=== PATIENT | male | born 1930 | race Caucasian/White ===

== ENCOUNTER 2017-05-24 14:15 | Inpatient (IN) | payer OTHER, MEDICARE ==
[2017-05-24] MEDS ORDERED: IPRATROPIUM-ALBUTEROL 3 ML NEB INHALATION STA (14:20)
[2017-05-24] MEDS ORDERED: methylPREDNISolone SOD SUCCI 125 MG/2 ML VIAL IV STA (14:20)
--- NOTE | 2017-05-24 14:23 | ED ---
General Adult HPI - General Stated complaint: SOB Time Seen by Provider: 05/24/17 14:20 Source: patient, EMS, RN notes reviewed - History of Present Illness Initial comments: 87-year-old male history of COPD presents with worsening dyspnea. Patient was seen at urgent care, noted to be bradycardic and sent in for evaluation. Patient has known history of COPD, not on home oxygen. He reports several days of worsening dyspnea. He does report mild cough. Denies any chest pain. Denies URI symptoms. Denies fever or chills. Patient has had no abdominal pain nausea or vomiting. - Related Data Home Medications Medication Instructions Recorded Confirmed Aspirin [Adult Low Dose Aspirin EC] 81 mg PO HS 05/24/17 05/24/17 Atenolol [Tenormin] 25 mg PO HS 05/24/17 05/24/17 Cholecalciferol (Vitamin D3) 2,000 unit PO HS 05/24/17 05/24/17 [Vitamin D3] Fenofibrate Nanocrystallized 72.5 mg PO HS 05/24/17 05/24/17 [Tricor] Fluticasone/Salmeterol [Advair 1 inhalation PO DAILY 05/24/17 05/24/17 250-50 Diskus] Lisinopril [Zestril] 2.5 mg PO HS 05/24/17 05/24/17 Pravastatin Sodium [Pravachol] 80 mg PO HS 05/24/17 05/24/17 Allergies Allergy/AdvReac Type Severity Reaction Status Date / Time atorvastatin [From Lipitor] AdvReac Unknown Verified 05/24/17 16:10 simvastatin [From Zocor] AdvReac Unknown Verified 05/24/17 16:10 Review of Systems ROS Statement: Those systems with pertinent positive or pertinent negative responses have been documented in the HPI. ROS Other: All systems not noted in ROS Statement are negative. General Exam General appearance: alert, in no apparent distress Head exam: Present: atraumatic, normocephalic Eye exam: Present: normal appearance, PERRL Neck exam: Present: normal inspection. Absent: tenderness, meningismus Respiratory exam: Present: wheezes, decreased breath sounds, prolonged expiratory Cardiovascular Exam: Present: normal rhythm, bradycardia GI/Abdominal exam: Present: soft. Absent: distended, tenderness, guarding Extremities exam: Present: normal inspection, normal capillary refill. Absent: pedal edema, calf tenderness Back exam: Present: normal inspection, full ROM Neurological exam: Present: alert, oriented X3, CN II-XII intact. Absent: motor sensory deficit Psychiatric exam: Present: normal affect, normal mood Skin exam: Present: warm, dry, intact. Absent: cyanosis, diaphoretic Course Vital Signs 05/24/17 05/24/17 05/24/17 14:19 15:03 15:13 Pulse Rate 54 L 70 72 Respiratory 22 Rate Blood Pressure 130/85 O2 Sat by Pulse 98 Oximetry - Reevaluation(s) Reevaluation #1: 05/24/17 17:03 Will attempt to obtain records from the [facility] regarding blood work. No old EKGs for comparison. EKG Findings - EKG Comments: EKG Findings:: EKG sinus rhythm with frequent PVCs, left bundle branch block. Rate of 65, MD interval 138 QRS duration 132 QTC 449 Medical Decision Making - Medical Decision Making 87-year-old male history COPD presenting with cough and dyspnea. On exam patient has poor air entry bilaterally. Chest x-rays obtained, this is consistent with COPD. Patient sent from urgent care with abnormal EKG. Patient does have left bundle branch block with PVC, no old EKG for comparison. Patient's laboratory studies reveal normal white blood cell count, stable hemoglobin, mild elevation in the potassium of 5.6, BUN and creatinine significantly elevated although there is no baseline for comparison. Troponin negative, BNP mildly elevated at 1180. Influenza is negative. Case discussed with Dr. Hoffmann, she will accept admission. Given the EKG abnormalities, serial cardiac enzymes will be obtained. Patient will be treated for COPD exacerbation. He will receive IV hydration and repeat BUN and creatinine will be obtained. - Lab Data Result diagrams: 05/24/17 14:45 05/24/17 14:45 Lab Results 05/24/17 05/24/17 05/24/17 Range/Units 14:45 14:45 14:45 WBC (3.8-10.6) k/uL RBC (4.30-5.90) m/uL Hgb (13.0-17.5) gm/dL Hct (39.0-53.0) % MCV (80.0-100.0) fL MCH (25.0-35.0) pg MCHC (31.0-37.0) g/dL RDW (11.5-15.5) % Plt Count (150-450) k/uL Neutrophils % % Lymphocytes % % Monocytes % % Eosinophils % % Basophils % % Neutrophils # (1.3-7.7) k/uL Lymphocytes # (1.0-4.8) k/uL Monocytes # (0-1.0) k/uL Eosinophils # (0-0.7) k/uL Basophils # (0-0.2) k/uL PT (9.0-12.0) sec INR (<1.2) APTT (22.0-30.0) sec Sodium (137-145) mmol/L Potassium (3.5-5.1) mmol/L Chloride (98-107) mmol/L Carbon Dioxide (22-30) mmol/L Anion Gap mmol/L BUN (9-20) mg/dL Creatinine (0.66-1.25) mg/dL Est GFR (CKD-EPI)AfAm (>60 ml/min/1.73 sqM) Est GFR (CKD-EPI)NonAf (>60 ml/min/1.73 sqM) Glucose (74-99) mg/dL Plasma Lactic Acid Toñito 1.0 (0.7-2.0) mmol/L Calcium (8.4-10.2) mg/dL Magnesium (1.6-2.3) mg/dL Total Bilirubin (0.2-1.3) mg/dL AST (17-59) U/L ALT (21-72) U/L Alkaline Phosphatase (38-126) U/L Total Creatine Kinase 58 (55-170) U/L CK-MB (CK-2) 1.5 (0.0-2.4) ng/mL CK-MB (CK-2) Rel Index 2.6 Troponin I <0.012 (0.000-0.034) ng/mL NT-Pro-B Natriuret Pep pg/mL Total Protein (6.3-8.2) g/dL Albumin (3.5-5.0) g/dL Influenza Type A RNA Not Detected (Not Detectd) Influenza Type B (PCR) Not Detected (Not Detectd) 05/24/17 05/24/17 05/24/17 Range/Units 14:45 14:45 14:45 WBC 8.7 (3.8-10.6) k/uL RBC 4.66 (4.30-5.90) m/uL Hgb 13.6 (13.0-17.5) gm/dL Hct 41.2 (39.0-53.0) % MCV 88.3 (80.0-100.0) fL MCH 29.2 (25.0-35.0) pg MCHC 33.1 (31.0-37.0) g/dL RDW 13.6 (11.5-15.5) % Plt Count 246 (150-450) k/uL Neutrophils % 67 % Lymphocytes % 26 % Monocytes % 5 % Eosinophils % 1 % Basophils % 0 % Neutrophils # 5.8 (1.3-7.7) k/uL Lymphocytes # 2.2 (1.0-4.8) k/uL Monocytes # 0.4 (0-1.0) k/uL Eosinophils # 0.1 (0-0.7) k/uL Basophils # 0.0 (0-0.2) k/uL PT (9.0-12.0) sec INR (<1.2) APTT (22.0-30.0) sec Sodium 142 (137-145) mmol/L Potassium 5.6 H (3.5-5.1) mmol/L Chloride 107 (98-107) mmol/L Carbon Dioxide 19 L (22-30) mmol/L Anion Gap 16 mmol/L BUN 81 H* (9-20) mg/dL Creatinine 2.70 H (0.66-1.25) mg/dL Est GFR (CKD-EPI)AfAm 23 (>60 ml/min/1.73 sqM) Est GFR (CKD-EPI)NonAf 20 (>60 ml/min/1.73 sqM) Glucose 109 H (74-99) mg/dL Plasma Lactic Acid Toñito (0.7-2.0) mmol/L Calcium 9.7 (8.4-10.2) mg/dL Magnesium 2.2 (1.6-2.3) mg/dL Total Bilirubin 0.4 (0.2-1.3) mg/dL AST 22 (17-59) U/L ALT 30 (21-72) U/L Alkaline Phosphatase 40 (38-126) U/L Total Creatine Kinase (55-170) U/L CK-MB (CK-2) (0.0-2.4) ng/mL CK-MB (CK-2) Rel Index Troponin I (0.000-0.034) ng/mL NT-Pro-B Natriuret Pep 1180 pg/mL Total Protein 7.5 (6.3-8.2) g/dL Albumin 4.1 (3.5-5.0) g/dL Influenza Type A RNA (Not Detectd) Influenza Type B (PCR) (Not Detectd) 05/24/17 Range/Units 14:45 WBC (3.8-10.6) k/uL RBC (4.30-5.90) m/uL Hgb (13.0-17.5) gm/dL Hct (39.0-53.0) % MCV (80.0-100.0) fL MCH (25.0-35.0) pg MCHC (31.0-37.0) g/dL RDW (11.5-15.5) % Plt Count (150-450) k/uL Neutrophils % % Lymphocytes % % Monocytes % % Eosinophils % % Basophils % % Neutrophils # (1.3-7.7) k/uL Lymphocytes # (1.0-4.8) k/uL Monocytes # (0-1.0) k/uL Eosinophils # (0-0.7) k/uL Basophils # (0-0.2) k/uL PT 10.8 (9.0-12.0) sec INR 1.1 (<1.2) APTT 24.7 (22.0-30.0) sec Sodium (137-145) mmol/L Potassium (3.5-5.1) mmol/L Chloride (98-107) mmol/L Carbon Dioxide (22-30) mmol/L Anion Gap mmol/L BUN (9-20) mg/dL Creatinine (0.66-1.25) mg/dL Est GFR (CKD-EPI)AfAm (>60 ml/min/1.73 sqM) Est GFR (CKD-EPI)NonAf (>60 ml/min/1.73 sqM) Glucose (74-99) mg/dL Plasma Lactic Acid Toñito (0.7-2.0) mmol/L Calcium (8.4-10.2) mg/dL Magnesium (1.6-2.3) mg/dL Total Bilirubin (0.2-1.3) mg/dL AST (17-59) U/L ALT (21-72) U/L Alkaline Phosphatase (38-126) U/L Total Creatine Kinase (55-170) U/L CK-MB (CK-2) (0.0-2.4) ng/mL CK-MB (CK-2) Rel Index Troponin I (0.000-0.034) ng/mL NT-Pro-B Natriuret Pep pg/mL Total Protein (6.3-8.2) g/dL Albumin (3.5-5.0) g/dL Influenza Type A RNA (Not Detectd) Influenza Type B (PCR) (Not Detectd) Disposition Clinical Impression: Acute exacerbation of chronic obstructive airways disease, Acute kidney injury Disposition: ADMITTED IP TO THIS [facility] Condition: Stable Is patient prescribed a controlled substance at discharge?: No Referrals: [facility],Clinic [Primary Care Provider] - 1-2 days Decision to Admit Reason: Admit from EC Decision Date: 05/24/17 Decision Time: 17:05
[2017-05-24 14:55] LABS: Basophils % (A) 0 %; Eosinophils # (A) 0.1 k/uL (0-0.7); Eosinophils % (A) 1 %; HCT 41.2 % (39.0-53.0); HGB 13.6 gm/dL (13.0-17.5); Lymphocytes # (A) 2.2 k/uL (1.0-4.8); Lymphocytes % (A) 26 %; MCH 29.2 pg (25.0-35.0); MCHC 33.1 g/dL (31.0-37.0); MCV 88.3 fL (80.0-100.0); Mean Platelet Volume 8.1; Monocytes # (A) 0.4 k/uL (0-1.0); Monocytes % (A) 5 %; Neutrophils # (A) 5.8 k/uL (1.3-7.7); Neutrophils % (A) 67 %; Platelet Count 246 k/uL (150-450); RBC 4.66 m/uL (4.30-5.90); RDW 13.6 % (11.5-15.5); WBC 8.7 k/uL (3.8-10.6)
[2017-05-24 15:06] LABS: Albumin 4.1 g/dL (3.5-5.0); Calcium 9.7 mg/dL (8.4-10.2); INR 1.1 (<1.2); Magnesium 2.2 mg/dL (1.6-2.3); Partial Thromboplastin Time 24.7 sec (22.0-30.0); Potassium 5.6 mmol/L (3.5-5.1); Prothrombin Time 10.8 sec (9.0-12.0); Total Bilirubin 0.4 mg/dL (0.2-1.3); Total Protein 7.5 g/dL (6.3-8.2)
[2017-05-24 15:10] LABS: Creatine Kinase 58 U/L (55-170)
[2017-05-24 15:21] LABS: Creatine Kinase MB 1.5 ng/mL (0.0-2.4); Troponin I <0.012 ng/mL (0.000-0.034)
[2017-05-24] MEDS ORDERED: SODIUM CHLORIDE 0.9% 500 ML IV ONE (15:34)
[2017-05-24] MEDS ORDERED: SODIUM CHLORIDE 0.9% 1,000 ML IV SCH (15:45)
--- NOTE | 2017-05-24 16:02 | XR ---
EXAMINATION TYPE: XR chest 2V DATE OF EXAM: 05/24/2017 COMPARISON: Prior chest 01/10/2011 HISTORY: Difficulty breathing TECHNIQUE: Frontal and lateral views of the chest are obtained. FINDINGS: There is no focal air space opacity, pleural effusion, or pneumothorax seen. The cardiac silhouette size is within normal limits. Chest shows increased AP diameter and relative flattening of the hemidiaphragms suggestive of underlying COPD, surgical clips present in the right upper quadra nt. The osseous structures are intact. There are overlying cardiac leads. IMPRESSION: No acute cardiopulmonary process.
[2017-05-24] MEDS ORDERED: NALOXONE 0.4 MG/ML 1 ML VIAL IV PRN ×2 (17:06→18:46)
[2017-05-24] MEDS ORDERED: ALBUTEROL NEBULIZED 2.5 MG/3 ML INHALATION PRN (17:10)
[2017-05-24] MEDS ORDERED: SODIUM POLYSTYRENE SULFONATE 15 GM/60 ML BOTTLE PO STA (18:31)
[2017-05-24] MEDS ORDERED: MELATONIN 3 MG TABLET PO PRN (18:46)
[2017-05-24] MEDS ORDERED: PROCHLORPERAZINE 5 MG TAB PO PRN (18:46)
[2017-05-24] MEDS ORDERED: DOCUSATE 100 MG CAP PO PRN (18:46)
[2017-05-24] MEDS ORDERED: HYDROcodone/APAP 5-325MG 1 EACH TAB PO PRN (18:46)
[2017-05-24] MEDS ORDERED: ACETAMINOPHEN TAB 325 MG TAB PO PRN (18:46)
[2017-05-24] MEDS ORDERED: SODIUM CHLORIDE 0.9% 1,000 ML IV ONE (19:12)
[2017-05-24] MEDS ORDERED: CALCIUM GLUCONATE 1,000 MG in SODIUM CHLORIDE 0.9% 100 ML IVPB ONE (19:15)
--- NOTE | 2017-05-24 19:24 | P.HPIM ---
History of Present Illness H&P Date: 05/24/17 Chief Complaint: shortness of breath Patient is an 87-year-old male past medical history of COPD, hypertension, dyslipidemia, and abdominal aortic aneurysm who presented initially to urgent care for shortness of breath. While at urgent care he underwent an EKG which revealed bradycardia and they therefore sent him here via EMS. On arrival here he underwent an extensive evaluation. His initial vital signs showed bradycardia. Initial laboratory analysis showed an elevated potassium at 5.6, BUN 81, creatinine 2.7, and normal CBC. Chest x-ray showed no acute process. EKG revealed... He was given a dose of Solu-Medrol, antibiotics, and a breathing treatment and was admitted to the selective care unit for further monitoring. Patient seen and examined in the emergency department. He states he's been feeling bad for the last week. He has chronic shortness of breath but it has been worsening. He is barely able to walk a few feet before coming significantly winded. He also has a nonproductive cough. He states he was having sinus drainage and a sore throat but that has resolved. He states she's been eating and drinking normally. He denies any fevers at home. He has urinary frequency but does not relieve much urine when he goes. He denies any lightheadedness, dizziness, or syncopal events. Denies any chest pain or palpitations. He is not having any nausea, vomiting, diarrhea, or constipation. [facility] [place] 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 He states he follows for an abdominal aortic aneurysm. He is feeling easily fatigued. He believes that he is just 87 and things are starting to go bad. He states he has known about his kidney problems for several years. He was unsure how bad they were. He has his blood work done at the [place] [facility] in [place]. He denies any difficulty starting to urinate, he does have frequency but no burning. He has not had any blood in the urine. Review of Systems Pertinent positives and negatives as per HPI. Remainder of 10 point review of systems is negative. 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 History of Any Multi-Drug Resistant Organisms: None Reported Past Surgical History: Appendectomy, Cholecystectomy Additional Past Surgical History / Comment(s): Bilateral cataract surgery, carpal tunnel release bilaterally, left ankle ORIF, left hip replacement, left knee replacement 2, right knee replacement, exploratory laparotomy, appendectomy, cholecystectomy Past Psychological History: No Psychological Hx Reported Smoking Status: Former smoker Past Alcohol Use History: None Reported Past Drug Use History: None Reported - Past Family History Father Family Medical History: No Reported History Mother Family Medical History: No Reported History Medications and Allergies Home Medications Medication Instructions Recorded Confirmed Type Aspirin [Adult Low Dose Aspirin EC] 81 mg PO HS 05/24/17 05/24/17 History Atenolol [Tenormin] 25 mg PO HS 05/24/17 05/24/17 History Cholecalciferol (Vitamin D3) 2,000 unit PO HS 05/24/17 05/24/17 History [Vitamin D3] Fenofibrate Nanocrystallized 72.5 mg PO HS 05/24/17 05/24/17 History [Tricor] Fluticasone/Salmeterol [Advair 1 inhalation PO DAILY 05/24/17 05/24/17 History 250-50 Diskus] Lisinopril [Zestril] 2.5 mg PO HS 05/24/17 05/24/17 History Pravastatin Sodium [Pravachol] 80 mg PO HS 05/24/17 05/24/17 History Allergies Allergy/AdvReac Type Severity Reaction Status Date / Time atorvastatin [From Lipitor] AdvReac Unknown Verified 05/24/17 16:10 simvastatin [From Zocor] AdvReac Unknown Verified 05/24/17 16:10 Physical Exam Osteopathic Statement: *. No significant issues noted on an osteopathic structural exam other than those noted in the History and Physical/Consult. Vitals: Vital Signs Temp Pulse Resp BP Pulse Ox 05/24/17 17:32 97.4 F L 71 20 94/73 97 05/24/17 15:13 72 05/24/17 15:03 70 05/24/17 14:19 54 L 22 130/85 98 Intake and Output 05/24/17 05/24/17 05/24/17 06:59 14:59 22:59 Other: Weight 95.254 kg General: non toxic, no distress, appears at stated age, obese Derm: no unusual rashes/lesions Multiple ecchymoses, warm, dry Head: atraumatic, normocephalic, symmetric Eyes: EOMI, no lid lag, anicteric sclera, pupils equal round reactive to light ENT: Nose and ears atraumatic, no thrush, no pharyngeal erythema, SITKA Neck: No thyromegaly, no cervical lymphadenopathy, trachea midline, supple Mouth: no lip lesion, mucus membranes moist Cardiovascular: S1S2 reg, no murmur, positive posterior tibial pulse bilateral, no edema, capillary refill less than 2 seconds Lungs: Decreased breath sounds bilaterally with diffuse wheeze, no accessory muscle use Abdominal: soft, nontender to palpation, no guarding, no appreciable organomegaly, normal bowel sounds Ext: no gross muscle atrophy, muscle strength 5 out of 5 in all 4 extremities grossly, no contractures, Neuro: CN II-XI grossly intact, light touch intact all 4 extremities, finger to nose within normal limits, Psych: Alert, oriented, appropriate affect Results CBC & Chem 7: 05/24/17 14:45 05/24/17 14:45 Labs: Abnormal Lab Results - Last 24 Hours (Table) 05/24/17 Range/Units 14:45 Potassium 5.6 H (3.5-5.1) mmol/L Carbon Dioxide 19 L (22-30) mmol/L BUN 81 H* (9-20) mg/dL Creatinine 2.70 H (0.66-1.25) mg/dL Glucose 109 H (74-99) mg/dL Comments: EKG reviewed which shows significantly abnormal rhythm. Multiple fusion complexes and PVCs. Appears to have possible escape rhythm. Chest x-ray: report reviewed, image reviewed Thrombosis Risk Factor Assmnt - DVT/VTE Prophylaxis DVT/VTE Prophylaxis: Pharmacologic Prophylaxis ordered Assessment and Plan Assessment: Bradycardia with undetermined underlying rhythm, LBBB -Telemetry -Echocardiogram - D/W D.r [facility] ICU, pacer pads -Initial troponin and BNP are within normal limits -hold atenolol -trend troponin Hyperkalemia - kayexelate - IVF - calcium gluconate - repeat in 4 hours - hold ACEI Acute kidney injury on chronic kidney disease -Creatinine was 1.56 in 2012 -IV fluids -Hold Lisinopril -Check post void residuals - renal ultrasound - attempt to obtain records from [place] - consult nephro AE COPD - steroids - Bronchodilators - Abx HTN, controlled to low - hold atenolol, lisinopril HLD - Tricor and pravastatin Obesity - structured outpatient weight loss. AAA - follow BP closely D/W Dr. Pang and Dr. Du Surrogate decision-maker: - CODE STATUS:DNR, Ok for meds/elective intubation/cardioverion/shock. DVT prophylaxis: Heparin Discussed with:Patient, ED physician, no family at bedside. Anticipated discharge: 3-[address]: home with home health A total of 65 minutes was spent on the care of this complex patient more than 50 % of the time was spent in counseling and care coordination.
[2017-05-24] MEDS ORDERED: ALBUTEROL NEBULIZED 2.5 MG/3 ML INHALATION SCH (20:00)
[2017-05-24 20:10] LABS: Glucose,Whole Blood 216 mg/dL (75-99)
[2017-05-24 20:20] LABS: ABG Base Excess -6.5 mmol/L; ABG HCO3 20 mmol/L (21-25); ABG Oxygen Saturation 97.4 % (94-97); ABG PCO2 37 mmHg (35-45); ABG PH 7.33 (7.35-7.45); ABG PO2 94 mmHg (83-108); ABG TCO2 21 mmol/L (19-24)
[2017-05-24] MEDS: IPRATROPIUM-ALBUTEROL 3 ML NEB INHALATION SCH (20:21)
[2017-05-24 20:28] LABS: Creatine Kinase 56 U/L (55-170)
[2017-05-24 20:40] LABS: Creatine Kinase MB 1.4 ng/mL (0.0-2.4); Troponin I <0.012 ng/mL (0.000-0.034)
[2017-05-24] MEDS ORDERED: FENOFIBRATE 54 MG TAB PO SCH (21:00)
[2017-05-24] MEDS ORDERED: methylPREDNISolone SOD SUCCI 125 MG/2 ML VIAL IV SCH (21:00)
[2017-05-24] MEDS: ASPIRIN 81 MG PO SCH (22:00)
[2017-05-24] MEDS: PRAVASTATIN SODIUM 80 MG TAB PO SCH (22:00)
[2017-05-24] MEDS: SODIUM CHLORIDE 0.9% 1,000 ML IV SCH (22:00)
[2017-05-24] MEDS: DOXYCYCLINE 50 MG CAP PO SCH (22:14)
[2017-05-25] MEDS: HEPARIN SODIUM,PORCINE 5,000 UNIT/ML 1 ML VIAL SQ SCH ×3 (00:51→16:45)
[2017-05-25] MEDS: methylPREDNISolone SOD SUCCI 125 MG/2 ML VIAL IV SCH ×4 (00:51→17:35)
[2017-05-25 01:03] LABS: Calcium 9.1 mg/dL (8.4-10.2); Potassium 5.2 mmol/L (3.5-5.1)
[2017-05-25 03:25] LABS: Basophils % (A) 0 %; Eosinophils % (A) 0 %; HCT 35.9 % (39.0-53.0); HGB 11.9 gm/dL (13.0-17.5); Lymphocytes # (A) 0.5 k/uL (1.0-4.8); Lymphocytes % (A) 10 %; MCH 29.5 pg (25.0-35.0); MCHC 33.1 g/dL (31.0-37.0); Mean Platelet Volume 7.6; Monocytes # (A) 0.1 k/uL (0-1.0); Monocytes % (A) 2 %; Neutrophils # (A) 4.4 k/uL (1.3-7.7); Neutrophils % (A) 87 %; Platelet Count 204 k/uL (150-450); RBC 4.03 m/uL (4.30-5.90); RDW 13.4 % (11.5-15.5); WBC 5.1 k/uL (3.8-10.6)
[2017-05-25 03:28] LABS: INR 1.2 (<1.2); Prothrombin Time 11.3 sec (9.0-12.0)
[2017-05-25 03:34] LABS: Albumin 3.3 g/dL (3.5-5.0); Calcium 8.9 mg/dL (8.4-10.2); Magnesium 1.9 mg/dL (1.6-2.3); Phosphorus 4.1 mg/dL (2.5-4.5); Potassium 5.4 mmol/L (3.5-5.1); Total Bilirubin 0.2 mg/dL (0.2-1.3); Total Protein 6.1 g/dL (6.3-8.2)
[2017-05-25 03:55] LABS: Creatine Kinase 69 U/L (55-170)
[2017-05-25 04:07] LABS: Creatine Kinase MB 1.6 ng/mL (0.0-2.4); Troponin I <0.012 ng/mL (0.000-0.034)
[2017-05-25 04:49] LABS: T4, Free (Free Thyroxine) 1.1 ng/dL (0.78-2.19)
[2017-05-25] MEDS ORDERED: INSULIN ASPART 100 UNIT/ML 1 ML 10 ML VIAL SQ SCH (06:00)
[2017-05-25] MEDS: SODIUM CHLORIDE 0.9% 1,000 ML IV SCH ×3 (06:16→16:45)
[2017-05-25] MEDS ORDERED: INSULIN REGULAR 100 UNIT/ML VIAL IV ONE (06:44)
[2017-05-25] MEDS ORDERED: SODIUM BICARB 8.4% 50 ML SYR (1 MEQ/ML) IV ONE (06:45)
[2017-05-25] MEDS ORDERED: DEXTROSE 50%-WATER 50 ML SYRINGE IVP STA (06:46)
[2017-05-25 07:39] LABS: Glucose,Whole Blood 180 mg/dL (75-99)
--- NOTE | 2017-05-25 08:14 | XR ---
EXAMINATION TYPE: XR chest 1V DATE OF EXAM: 05/25/2017 COMPARISON: Prior chest x-ray 05/24/2017 HISTORY: Shortness of breath TECHNIQUE: Single frontal view of the chest is obtained. FINDINGS: There are overlying cardiac leads. No evident airspace disease, pneumothorax, or pleural e ffusion. Cardiac mediastinal silhouette, pulmonary vascularity and ricco are stable. IMPRESSION: Stable exam, no acute abnormality. Prominence of the pulmonary artery could be indicativ e of underlying pulmonary artery hypertension. Correlate for COPD.
--- NOTE | 2017-05-25 08:19 | US ---
EXAMINATION TYPE: US kidneys/renal and bladder DATE OF EXAM: 05/25/2017 COMPARISON: NONE CLINICAL HISTORY: ANICETO. ICU labs EXAM MEASUREMENTS: Right Kidney: 10.7 x 4.4 x 5.0 cm Left Kidney: 10.6 x 4.2 x 5.0 cm Right Kidney: No hydronephrosis or masses seen Left Kidney: No hydronephrosis or masses seen Bladder: not distended, pt voided just prior to exam Cortical medullary differentiation is maintained. No pathologic calcifications. There is no ascites e vident. IMPRESSION: No hydronephrosis. Limitations as described.
[2017-05-25] MEDS: INSULIN ASPART 100 UNIT/ML 1 ML 10 ML VIAL SQ SCH ×4 (08:28→21:03)
[2017-05-25] MEDS: DOXYCYCLINE 50 MG CAP PO SCH ×2 (08:30→20:20)
[2017-05-25] MEDS: IPRATROPIUM-ALBUTEROL 3 ML NEB INHALATION SCH ×4 (09:01→19:31)
--- NOTE | 2017-05-25 09:20 | CONS ---
CONSULTATION Mr. Perez is an 87-year-old male known history of hypertension, hyperlipidemia, history of abdominal aortic aneurysm that has been followed in [place] as well, history of chronic obstructive lung disease who has been complaining of progressive symptoms of dyspnea and cough and wheezing for the last couple weeks. He was seen in Urgent Care and was noted to be bradycardiac and sent to the emergency room and subsequently admitted. At the time my evaluation, he is feeling better. His breathing is slightly better. He denies any chest pain. He did not have any dizziness or palpitation. No syncope. He has no history of congestive heart failure or obstructive coronary artery disease according to him, although he is somewhat vague about his history. He has no peripheral edema. He feels no palpitation. On presentation, he was in sinus mechanism with frequent PVCs. His beta ros was stopped, but he had no documented bradyarrhythmia since presentation. His coronary risk factors are remarkable for history of hypertension, hyperlipidemia. He stopped smoking 30 years ago. He is nondiabetic. His medications at home include Zestril 2.5 mg daily, Advair, vitamin D, TriCor, atenolol 25 mg daily, aspirin once a day and pravastatin 80 mg daily. REVIEW OF SYSTEMS: RESPIRATORY SYSTEM: He has history of chronic obstructive lung disease that is quite limiting, history of cough. GI SYSTEM: No recent GI bleed. No peptic ulcer disease. SYSTEM: No dysuria or hematuria. NERVOUS SYSTEM: No history of stroke or seizure. PHYSICAL EXAMINATION: This is an 87-year-old male, alert, in no apparent distress. Hard of hearing. Blood pressure 110/60 with the heart rate in the 70s. HEAD: Normocephalic. EYES: Sclerae anicteric. NECK: Good upstroke. No bruit. No jugular venous distention. LUNGS: Clear to auscultation. HEART: Regular rate and rhythm, S1, S2. No S3. No rub or gallop. ABDOMEN: Soft, nontender. Positive bowel sounds. No organomegaly. EXTREMITIES: No edema. Intact distal pulses. LAB DATA: Lab data revealed BUN and creatinine 73 and 2.3. On presentation, they were 81 and 2.7. His potassium on presentation was 5.6. It is 5.4 today. His creatinine is down to 2.2. His troponin is less than 0.012 for 3 samples. NT proBNP 1180. Hemoglobin of 13.6. His EKG revealed a sinus mechanism with a normal axis, intraventricular conduction delay of the left bundle branch block type with frequent PVCs. Chest x-ray shows no evidence of acute infiltrate. IMPRESSION: 1. Symptoms of progressive dyspnea, probably the exacerbation of chronic obstructive pulmonary disease and upper respiratory infection. 2. Questionable bradycardia although not documented since presentation here. 3. Ventricular ectopic activity is resolved. 4. History of hypertension. 5. History of hyperlipidemia. 6. Chronic kidney disease. 7. Hyperkalemia. 8. History of abdominal aortic aneurysm, stable. RECOMMENDATION: From the cardiac standpoint, we will continue to hold his POLLO inhibitor because of his hyperkalemia. Of note that the patient had renal function abnormality in the past, although not as severe. In regard to the bradycardia, I see no evidence of significant bradyarrhythmia at this time. Depending on his progress, heart rate and the decision to initiate beta ros can be made. I will stop his fenofibrate because of his renal function and I do not see any benefit from it at this point. An echocardiogram with Doppler will be obtained. From the cardiac standpoint, he is stable to be transferred to telemetry floor once he has been cleared by Dr. Du. Thank you for this consult. We will follow with you. MMODL / IJN: [id number] /
[2017-05-25] MEDS: SYMBICORT 80-4.5 MCG INHALER INHALATION SCH (10:02)
--- NOTE | 2017-05-25 10:55 | ECHOF ---
Referral Reason:chf MEASUREMENTS -------- HEIGHT: 172.7 cm WEIGHT: 88.9 kg BP: 104/56 RVIDd: 3.1 cm (< 3.3) IVSd: 1.3 cm (0.6 - 1.1) LVIDd: 3.8 cm (3.9 - 5.3) LVPWd: 1.1 cm (0.6 - 1.1) IVSs: 1.7 cm LVIDs: 2.6 cm LVPWs: 1.7 cm LA Diam: 3.7 cm (2.7 - 3.8) LAESV Index (A-L): 31.66 ml/m Ao Diam: 3.4 cm (2.0 - 3.7) AV Cusp: 1.7 cm (1.5 - 2.6) MV E Jose: 1.22 m/s MV DecT: 257 ms MV A Jose: 1.28 m/s MV E/A Ratio: 0.95 RAP: 5.00 mmHg RVSP: 24.94 mmHg FINDINGS -------- Sinus rhythm. This was a technically difficult study with suboptimal parasternal views. The left ventricular size is normal. There is mild concentric left ventricular hypertrophy. Overa ll left ventricular systolic function is normal with, an EF between 60 - 65 %. The right ventricle is normal in size. LA is midly dilated 29-33ml/m2. The right atrium is normal in size. Aortic valve is trileaflet and is moderately thickened. The mitral valve leaflets are moderately thickened. Moderate mitral annular calcification present. Mild tricuspid regurgitation present. Right ventricular systolic pressure is normal at < 35 mmHg. There is no pulmonic regurgitation present. The aortic root size is normal. Normal inferior vena cava with normal inspiratory collapse consistent with estimated right atrial pre ssure of 5 mmHg. There is no pericardial effusion. CONCLUSIONS -------- 1. Sinus rhythm. 2. This was a technically difficult study with suboptimal parasternal views. 3. The left ventricular size is normal. 4. There is mild concentric left ventricular hypertrophy. 5. Overall left ventricular systolic function is normal with, an EF between 60 - 65 %. 6. The right ventricle is normal in size. 7. LA is midly dilated 29-33ml/m2. 8. The right atrium is normal in size. 9. Aortic valve is trileaflet and is moderately thickened. 10. The mitral valve leaflets are moderately thickened. 11. Moderate mitral annular calcification present. 12. Mild tricuspid regurgitation present. 13. Right ventricular systolic pressure is normal at < 35 mmHg. 14. There is no pulmonic regurgitation present. 15. The aortic root size is normal. 16. Normal inferior vena cava with normal inspiratory collapse consistent with estimated right atrial pressure of 5 mmHg. 17. There is no pericardial effusion. MATERIALS MGMT TECH: Mara Jamison RDCS
--- NOTE | 2017-05-25 11:41 | P.PN ---
Subjective Progress Note Date: 05/25/17 Patient complaining of cough productive, mildly dyspneic. No events overnight Objective - Vital Signs Vital signs: Vital Signs Temp 96.9 F L 05/25/17 09:00 Pulse 71 05/25/17 11:00 Resp 20 05/25/17 11:00 BP 101/53 05/25/17 11:00 Pulse Ox 95 05/25/17 11:00 Intake & Output 05/24/17 05/25/17 05/25/17 18:59 06:59 18:59 Intake Total 2224 400 Output Total 625 150 Balance 1599 250 Weight 95.254 kg 89.1 kg Intake: IV 2224 400 Calcium Gluconate 1,000 100 300 mg In Sodium Chloride 0.9 % 100 ml @ 100 mls/hr IVPB ONCE ONE Rx#: [id number] Sodium Chloride 0.9% 1, 100 000 ml @ 100 mls/hr IV . Q10H [facility] Rx#:[id number] Sodium Chloride 0.9% 1, 1125 000 ml @ 125 mls/hr IV . Q8H [facility] Rx#:[id number] Sodium Chloride 0.9% 1, 999 000 ml @ 999 mls/hr IV . Q1H1M [facility] Rx#:[id number] Output: Urine 625 150 Other: Voiding Method Urinal Urinal # Voids 1 # Bowel Movements 1 - Exam Constitutional: No acute distress, conversant, pleasant Eyes: Anicteric sclerae, moist conjunctiva, no lid-lag, PERRLA ENMT: NC/AT,Oropharynx clear, no erythema, exudates Neck:Supple, FROM, no masses, or JVD, No carotid bruits; No thyromegaly Lungs: Diminished breath sounds mild expiratory wheezes and rhonchi, Clear to percussion, Normal respiratory effort, no accessory muscle use Cardiovascular: Heart regular in rate and rhythm, No murmurs, gallops, or rubs no peripheral edema Abdominal: Soft Nontender, nom distended, no guarding, no rebound or rigidity, Normoactive bowel sounds No hepatomegaly, No splenomegaly, No palpable mass No abdominal wall hernia noted Skin: Normal temperature, tone, texture, turgor, No induration No subcutaneous nodules, No rash, lesions, No ulcers Extremities:No digital cyanosis No clubbing, Pedal pulses intact and symmetrical Radial pulses intact and symmetrical Normal gait and station, No calf tenderness Psychiatric: Alert and oriented to person, place and time, Appropriate affect Intact judgement Neuro: Muscles Strength 5/5 in all 4 extremities, Sensation to light touch grossly present throughout, Cranial nerves II-XII grossly intact. No focal sensory deficits - Labs CBC & Chem 7: 05/25/17 03:00 05/25/17 03:00 Labs: Abnormal Lab Results - Last 24 Hours (Table) 05/24/17 05/24/17 05/24/17 Range/Units 14:45 20:06 20:19 RBC (4.30-5.90) m/uL Hgb (13.0-17.5) gm/dL Hct (39.0-53.0) % Lymphocytes # (1.0-4.8) k/uL INR (<1.2) ABG pH 7.33 L (7.35-7.45) ABG HCO3 20 L (21-25) mmol/L ABG O2 Saturation 97.4 H (94-97) % Potassium 5.6 H (3.5-5.1) mmol/L Chloride (98-107) mmol/L Carbon Dioxide 19 L (22-30) mmol/L BUN 81 H* (9-20) mg/dL Creatinine 2.70 H (0.66-1.25) mg/dL Glucose 109 H (74-99) mg/dL POC Glucose (mg/dL) 216 H (75-99) mg/dL Alkaline Phosphatase (38-126) U/L Total Protein (6.3-8.2) g/dL Albumin (3.5-5.0) g/dL TSH (0.465-4.680) mIU/L 05/25/17 05/25/17 05/25/17 Range/Units 00:11 03:00 03:00 RBC 4.03 L (4.30-5.90) m/uL Hgb 11.9 L (13.0-17.5) gm/dL Hct 35.9 L (39.0-53.0) % Lymphocytes # 0.5 L (1.0-4.8) k/uL INR (<1.2) ABG pH (7.35-7.45) ABG HCO3 (21-25) mmol/L ABG O2 Saturation (94-97) % Potassium 5.2 H 5.4 H (3.5-5.1) mmol/L Chloride 108 H 108 H (98-107) mmol/L Carbon Dioxide 19 L 19 L (22-30) mmol/L BUN 73 H 67 H (9-20) mg/dL Creatinine 2.30 H 2.20 H (0.66-1.25) mg/dL Glucose 160 H 165 H (74-99) mg/dL POC Glucose (mg/dL) (75-99) mg/dL Alkaline Phosphatase 36 L (38-126) U/L Total Protein 6.1 L (6.3-8.2) g/dL Albumin 3.3 L (3.5-5.0) g/dL TSH 0.240 L (0.465-4.680) mIU/L 05/25/17 05/25/17 Range/Units 03:00 07:38 RBC (4.30-5.90) m/uL Hgb (13.0-17.5) gm/dL Hct (39.0-53.0) % Lymphocytes # (1.0-4.8) k/uL INR 1.2 H (<1.2) ABG pH (7.35-7.45) ABG HCO3 (21-25) mmol/L ABG O2 Saturation (94-97) % Potassium (3.5-5.1) mmol/L Chloride (98-107) mmol/L Carbon Dioxide (22-30) mmol/L BUN (9-20) mg/dL Creatinine (0.66-1.25) mg/dL Glucose (74-99) mg/dL POC Glucose (mg/dL) 180 H (75-99) mg/dL Alkaline Phosphatase (38-126) U/L Total Protein (6.3-8.2) g/dL Albumin (3.5-5.0) g/dL TSH (0.465-4.680) mIU/L Assessment and Plan Assessment: Bradycardia with undetermined underlying rhythm, LBBB -Telemetry with normal sinus rhythm with frequent PVCs -Echocardiogram showing ejection fraction of 60-65% -Dr. Rehman following -Initial and subsequent troponin and BNP are within normal limits -hold atenolol Hyperkalemia * Continue to monitor likely secondary to acute kidney injury versus chronic kidney disease, nephrology has been consulted to see the patient - kayexelate - IVF - calcium gluconate - hold ACEI Acute kidney injury on chronic kidney disease vs chronic kidney disease * Patient with hyperkalemia and also with metabolic acidosis on ABG and chemistries, may be a candidate for bicarb. -Creatinine was 1.56 in 2011 -IV fluids -Hold Lisinopril -Check post void residuals - renal ultrasound - [facility] - consult nephro AE COPD DUE to acute bronchitis - steroids - Bronchodilators - Abx with doxycycline HTN, controlled to low - hold atenolol, lisinopril HLD - Tricor and pravastatin Obesity - structured outpatient weight loss. AAA - follow BP closely D/W Dr. Yost and Dr. Du Disposition patient stable for transfer to the medical floor
[2017-05-25 12:01] LABS: Glucose,Whole Blood 145 mg/dL (75-99)
--- NOTE | 2017-05-25 12:25 | P.CNPUL ---
History of Present Illness Consult date: 05/25/17 Requesting physician: Gloria Hoffmann Reason for consult: dyspnea, cough, COPD Chief complaint: Bradycardia, shortness of breath, chest congestion History of present illness: Mr. Holden is a 87-year-old white male patient of Dr. Brewer in [place], who presented to the emergency department on 05/24/2017 at 1415 per EMS for evaluation of his bradycardia. Patient was seen in the urgent care clinic for his increasing symptoms of chest congestion or shortness of breath over the past 2 weeks, was found to be bradycardic and was sent in for further evaluation and treatment. He stated 2 weeks ago he started feeling progressively weak, short of breath, felt like he was getting the flu, however denied any fever or chills. Does not see a lung specialist, but was told that he has COPD, not on any oxygen, is never seen a lung specialist in the past. He carries a [id number] smoking history, as have a history of service , was in the [employer] in the [employer]. He quit smoking a while ago. His maintenance inhaler is Advair 250/50, and patient has a nebulizer machine at home. Patient's heart rate was in the 40s at the urgent care clinic, twelve- lead EKG completed in the emergency room showed sinus rhythm with left bundle branch block, and frequent PVCs with a rate of 65 BPM. Patient is afebrile, her dynamically stable, pulse ox in the 97-98% on room air. He denied any chest pain, denied any nausea or vomiting. Denied any headache, fever or chills. Lab work showed WBC of 8.7, hemoglobin 13.6, no evidence of coagulopathy, serum potassium is 5.6, B1 is 81, creatinine 2.70, carbon dioxide was 19. Lactic acid was 1.0, liver enzymes were all within normal limits, troponins were negative 3, proBNP on to be within normal limits at 1180, influenza screen was negative. Chest x-ray showed increased AP diameter and relative flattening of the diaphragms suggestive of underlying COPD, no acute cardiopulmonary process. Vision was given 2 L of IV bolus 0.9 normal saline, IV 0.9 normal saline is infusing at 100 ML per hour. Patient was given 1 dose of Kayexalate 30 g, he was given 1 amp of sodium bicarbonate, D50, calcium gluconate, and 10 units of regular insulin. Patient is voiding, on today's blood work potassium is 5.2, chloride is 108, carbon dioxide is 19, BUN is down to 73, creatinine is down to 2.30. Nephrology has been consulted. A blood gas treated in the emergency room shows a be a pO2 of 94, pCO2 37, pH of 7.33, this was done on FiO2 of 28%, and is consistent with metabolic acidosis related to acute renal failure. Ultrasound of the kidneys with no hydronephrosis. Repeat chest x-ray showed stable exam no acute abnormality. Patient was seen in consultation by cardiology, 2-D echocardiogram ordered. She was started on doxycycline, nebulized bronchodilators, Symbicort, IV Solu-Medrol, and today's exam patient is feeling better, less dyspneic. On 2 L per nasal cannula, with O2 sat 95%. Still has a congested cough, producing small amount of yellow sputum. Afebrile, hemodynamically stable. Does become a bit dyspneic with exertion. Denies any chest pain, denies any hemoptysis. Review of Systems All systems: negative Constitutional: Denies chills, Denies fever Eyes: denies blurred vision, denies pain Ears, nose, mouth and throat: Denies headache, Denies sore throat Cardiovascular: Denies chest pain, Denies shortness of breath Respiratory: Denies cough Gastrointestinal: Denies abdominal pain, Denies diarrhea, Denies nausea, Denies vomiting Musculoskeletal: Denies myalgias Integumentary: Denies pruritus, Denies rash Neurological: Denies numbness, Denies weakness Psychiatric: Denies anxiety, Denies depression Endocrine: Denies fatigue, Denies weight change 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 History of Any Multi-Drug Resistant Organisms: None Reported Past Surgical History: Appendectomy, Cholecystectomy Additional Past Surgical History / Comment(s): Bilateral cataract surgery, carpal tunnel release bilaterally, left ankle ORIF, left hip replacement, left knee replacement 2, right knee replacement, exploratory laparotomy, appendectomy, cholecystectomy Smoking Status: Former smoker - Past Family History Father Family Medical History: No Reported History Mother Family Medical History: No Reported History Medications and Allergies Home Medications Medication Instructions Recorded Confirmed Type Aspirin [Adult Low Dose Aspirin EC] 81 mg PO HS 05/24/17 05/24/17 History Atenolol [Tenormin] 25 mg PO HS 05/24/17 05/24/17 History Cholecalciferol (Vitamin D3) 2,000 unit PO HS 05/24/17 05/24/17 History [Vitamin D3] Fenofibrate Nanocrystallized 72.5 mg PO HS 05/24/17 05/24/17 History [Tricor] Fluticasone/Salmeterol [Advair 1 inhalation PO DAILY 05/24/17 05/24/17 History 250-50 Diskus] Lisinopril [Zestril] 2.5 mg PO HS 05/24/17 05/24/17 History Pravastatin Sodium [Pravachol] 80 mg PO HS 05/24/17 05/24/17 History Allergies Allergy/AdvReac Type Severity Reaction Status Date / Time atorvastatin [From Lipitor] AdvReac Unknown Verified 05/24/17 16:10 simvastatin [From Zocor] AdvReac Unknown Verified 05/24/17 16:10 Physical Exam Vitals: Vital Signs Temp Pulse Pulse Resp BP BP Pulse Ox 05/25/17 09:00 96.9 F L 75 24 100/62 96 05/25/17 08:00 72 24 110/65 96 05/25/17 07:00 59 L 102/58 96 05/25/17 06:00 63 104/56 95 05/25/17 05:00 60 107/54 96 05/25/17 04:00 97.4 F L 70 24 103/54 96 05/25/17 03:54 68 24 05/25/17 03:00 66 102/57 96 05/25/17 02:00 68 101/47 97 05/25/17 01:00 72 102/58 97 05/25/17 00:00 97.5 F L 68 68 24 102/54 96 05/24/17 23:00 76 93/59 96 05/24/17 22:27 76 108/60 95 05/24/17 22:00 78 117/58 93 L 05/24/17 21:30 81 24 112/56 95 05/24/17 21:00 77 115/59 98 05/24/17 20:50 80 05/24/17 20:40 81 05/24/17 20:30 97.4 F L 75 20 112/68 97 05/24/17 20:05 89 68 20 05/24/17 20:00 20 99 05/24/17 19:05 97.8 F 68 24 117/68 97 05/24/17 18:23 66 18 93/73 98 05/24/17 17:32 97.4 F L 71 20 94/73 97 05/24/17 15:13 72 05/24/17 15:03 70 05/24/17 14:19 54 L 22 130/85 98 Intake and Output 05/24/17 05/25/17 05/25/17 22:59 06:59 14:59 Intake Total 1224 1000 300 Output Total 175 450 150 Balance 1049 550 150 Intake: IV 1224 1000 300 Calcium Gluconate 1,000 100 300 mg In Sodium Chloride 0.9 % 100 ml @ 100 mls/hr IVPB ONCE ONE Rx#: [id number] Sodium Chloride 0.9% 1, 125 1000 000 ml @ 125 mls/hr IV . Q8H [facility] Rx#:[id number] Sodium Chloride 0.9% 1, 999 000 ml @ 999 mls/hr IV . Q1H1M ONE Rx#:[id number] Output: Urine 175 450 150 Other: Voiding Method Urinal Urinal Urinal # Voids 1 Weight 87.6 kg 89.1 kg GENERAL EXAM: Alert, pleasant 87-year-old white male comfortable in no apparent distress. HEAD: Normocephalic/atraumatic. EYES: Normal reaction of pupils, equal size. Conjunctiva pink, sclera white. NOSE: Clear with pink turbinates. THROAT: No erythema or exudates. NECK: No masses, no JVD, no thyroid enlargement, no adenopathy. CHEST: No chest wall deformity. Symmetrical expansion. LUNGS: Diminished breath sounds bilaterally, with a few scattered rhonchi CVS: Regular rate and rhythm, normal S1 and S2, no gallops, no murmurs, no rubs. Patient remains in sinus rhythm with left bundle branch block, and frequent PVCs on the monitor ABDOMEN: Soft, nontender. No hepatosplenomegaly, normal bowel sounds, no guarding or rigidity. EXTREMITIES: No clubbing, no edema, no cyanosis, 2+ pulses and upper and lower extremities. MUSCULOSKELETAL: Muscle strength and tone normal. SPINE: No scoliosis or deformity SKIN: No rashes CENTRAL NERVOUS SYSTEM: Alert and oriented -3. No focal deficits, tone is normal in all 4 extremities. PSYCHIATRIC: Alert and oriented -3. Appropriate affect. Intact judgment and insight. Results - Laboratory Findings CBC and BMP: 05/25/17 03:00 05/25/17 03:00 ABG ABG pH 7.33 (7.35-7.45) L 05/24/17 20:19 ABG pCO2 37 mmHg (35-45) 05/24/17 20:19 ABG pO2 94 mmHg (83-108) 05/24/17 20:19 ABG O2 Saturation 97.4 % (94-97) H 05/24/17 20:19 PT/INR, D-dimer PT 11.3 sec (9.0-12.0) 05/25/17 03:00 INR 1.2 (<1.2) H 05/25/17 03:00 Abnormal lab findings: Abnormal Labs 05/24/17 05/24/17 05/24/17 14:45 20:06 20:19 RBC Hgb Hct Lymphocytes # INR ABG pH 7.33 L ABG HCO3 20 L ABG O2 Saturation 97.4 H Potassium 5.6 H Chloride Carbon Dioxide 19 L BUN 81 H* Creatinine 2.70 H Glucose 109 H POC Glucose (mg/dL) 216 H Alkaline Phosphatase Total Protein Albumin TSH 05/25/17 05/25/17 05/25/17 00:11 03:00 03:00 RBC 4.03 L Hgb 11.9 L Hct 35.9 L Lymphocytes # 0.5 L INR ABG pH ABG HCO3 ABG O2 Saturation Potassium 5.2 H 5.4 H Chloride 108 H 108 H Carbon Dioxide 19 L 19 L BUN 73 H 67 H Creatinine 2.30 H 2.20 H Glucose 160 H 165 H POC Glucose (mg/dL) Alkaline Phosphatase 36 L Total Protein 6.1 L Albumin 3.3 L TSH 0.240 L 05/25/17 05/25/17 03:00 07:38 RBC Hgb Hct Lymphocytes # INR 1.2 H ABG pH ABG HCO3 ABG O2 Saturation Potassium Chloride Carbon Dioxide BUN Creatinine Glucose POC Glucose (mg/dL) 180 H Alkaline Phosphatase Total Protein Albumin TSH - Diagnostic Findings Chest x-ray: report reviewed Additional studies: Twelve-lead EKG, abdomen/bladder ultrasound reviewed, echo reviewed Assessment and Plan Plan: Assessment: #1. Acute exacerbation of COPD #2. Bradycardia, currently under investigation #3. Acute on chronic renal failure, baseline GFR is unknown. #4. Hyperkalemia, secondary to acute on chronic renal failure, treated with IV fluids, Kayexalate, 10 units of insulin R, with D50, calcium gluconate #5. Metabolic acidosis, related to acute renal failure #6. Normocytic normochromic anemia #7. COPD, severity of which is unknown at this time #8. Nicotine dependence, currently in remission, patient carries a 30-pack- year smoking history. Patient has a history of service [employer] #9. Abdominal aortic aneurysm #10. Hypertension, dyslipidemia Plan: Continue with IV Solu-Medrol, bronchodilators, Symbicort, and doxycycline. Continue IV fluids and 0.9 normal saline at 100 ML per hour, continue monitoring labs, serum potassium, nephrology has been consulted. Patient is voiding. He is nonoliguric, tolerating oral intake. Hemodynamically stable, cardiology input was noted, echocardiogram was noted. Patient remains stable, can transfer out of intensive care today to selective care unit. We'll continue to follow I performed a history & physical examination of the patient and discussed their management with my nurse practitioner, Cass Berrios. I reviewed the nurse practitioner's note and agree with the documented findings and plan of care. Lung sounds are diminished breath sounds bilaterally, with a few scattered. The findings and the impression was discussed with the patient. I attest to the documentation by the nurse practitioner. Time with Patient: Greater than 30
[2017-05-25 12:32] LABS: Calcium 8.5 mg/dL (8.4-10.2); Potassium 4.4 mmol/L (3.5-5.1)
[2017-05-25 13:55] LABS: Hemoglobin A1C 5.8 % (4.0-6.0)
--- NOTE | 2017-05-25 16:35 | P.NPCON ---
History of Present Illness - Reason for Consult acute renal failure - History of Present Illness Reason for consultation: Acute kidney injury History of present illness: Patient is a 87-year-old male seen in renal consultation for acute kidney injury. Unclear as to what his baseline renal function is. Per the records his creatinine was 1.56 and 2012. His creatinine on admission was 2.7 and is down to 1.77 today. Patient went to an urgent care for upper respiratory infection and was noted to be bradycardic with heart rate in 30s. He was advised to come to the hospital. There has been no evidence of bradycardia during this admission. His heart rate is currently in the 70s. Patient denies any chest pain or shortness of breath. Denies vomiting or diarrhea. Admits to good urine output. No hematuria or dysuria. Patient does not follow with a hospital personnel director outpatient. He has been told about kidney disease in the past but is not able to provide much history on that. Influenza test was negative. Hemodynamically he is stable. Denies regular use of NSAIDs. Ultrasound revealed no evidence of hydronephrosis. He is currently sitting up in bed. Feels well. Vital signs are stable. General: The patient appeared well nourished and normally developed. HEENT: Head exam is unremarkable. Neck is without jugular venous distension. LUNGS: Lungs are clear to auscultation and percussion. Breath sounds decreased. HEART: Rate and Rhythm are regular. First and second heart sounds normal. No murmurs, rubs or gallops. ABDOMEN: Abdominal exam reveals normal bowel sounds. Non-tender and non- distended. No evidence of peritonitis. EXTREMITITES: No clubbing, cyanosis, or edema. 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 History of Any Multi-Drug Resistant Organisms: None Reported Past Surgical History: Appendectomy, Cholecystectomy Additional Past Surgical History / Comment(s): Bilateral cataract surgery, carpal tunnel release bilaterally, left ankle ORIF, left hip replacement, left knee replacement 2, right knee replacement, exploratory laparotomy, appendectomy, cholecystectomy Smoking Status: Former smoker - Past Family History Father Family Medical History: No Reported History Mother Family Medical History: No Reported History Medications and Allergies Home Medications Medication Instructions Recorded Confirmed Type Aspirin [Adult Low Dose Aspirin EC] 81 mg PO HS 05/24/17 05/24/17 History Atenolol [Tenormin] 25 mg PO HS 05/24/17 05/24/17 History Cholecalciferol (Vitamin D3) 2,000 unit PO HS 05/24/17 05/24/17 History [Vitamin D3] Fenofibrate Nanocrystallized 72.5 mg PO HS 05/24/17 05/24/17 History [Tricor] Fluticasone/Salmeterol [Advair 1 inhalation PO DAILY 05/24/17 05/24/17 History 250-50 Diskus] Lisinopril [Zestril] 2.5 mg PO HS 05/24/17 05/24/17 History Pravastatin Sodium [Pravachol] 80 mg PO HS 05/24/17 05/24/17 History Allergies Allergy/AdvReac Type Severity Reaction Status Date / Time atorvastatin [From Lipitor] AdvReac Unknown Verified 05/24/17 16:10 simvastatin [From Zocor] AdvReac Unknown Verified 05/24/17 16:10 Physical Exam Vitals: Vital Signs Temp Pulse Pulse Resp BP BP Pulse Ox 05/25/17 15:43 23 05/25/17 12:00 98.2 F 71 23 102/48 95 05/25/17 11:00 71 20 101/53 95 05/25/17 10:16 64 05/25/17 10:02 65 05/25/17 10:00 60 18 101/54 97 05/25/17 09:00 96.9 F L 75 24 100/62 96 05/25/17 08:00 72 24 110/65 96 05/25/17 07:00 59 L 102/58 96 05/25/17 06:00 63 104/56 95 05/25/17 05:00 60 107/54 96 05/25/17 04:00 97.4 F L 70 24 103/54 96 05/25/17 03:54 68 24 05/25/17 03:00 66 102/57 96 05/25/17 02:00 68 101/47 97 05/25/17 01:00 72 102/58 97 05/25/17 00:00 97.5 F L 68 68 24 102/54 96 05/24/17 23:00 76 93/59 96 05/24/17 22:27 76 108/60 95 05/24/17 22:00 78 117/58 93 L 05/24/17 21:30 81 24 112/56 95 05/24/17 21:00 77 115/59 98 05/24/17 20:50 80 05/24/17 20:40 81 05/24/17 20:30 97.4 F L 75 20 112/68 97 05/24/17 20:05 89 68 20 05/24/17 20:00 20 99 05/24/17 19:05 97.8 F 68 24 117/68 97 05/24/17 18:23 66 18 93/73 98 05/24/17 17:32 97.4 F L 71 20 94/73 97 Intake and Output 05/25/17 05/25/17 05/25/17 06:59 14:59 22:59 Intake Total 1000 400 Output Total 450 150 Balance 550 250 Intake: IV 1000 400 Calcium Gluconate 1,000 300 mg In Sodium Chloride 0.9 % 100 ml @ 100 mls/hr IVPB ONCE ONE Rx#: [id number] Sodium Chloride 0.9% 1, 100 000 ml @ 100 mls/hr IV . Q10H [facility] Rx#:[id number] Sodium Chloride 0.9% 1, 1000 000 ml @ 125 mls/hr IV . Q8H [facility] Rx#:[id number] Output: Urine 450 150 Other: Voiding Method Urinal Urinal Urinal # Voids 1 # Bowel Movements 1 Weight 89.1 kg Results - Lab Results Most recent lab results ABG pH 7.33 (7.35-7.45) L 05/24/17 20:19 ABG pCO2 37 mmHg (35-45) 05/24/17 20:19 ABG pO2 94 mmHg (83-108) 05/24/17 20:19 ABG HCO3 20 mmol/L (21-25) L 05/24/17 20:19 ABG O2 Saturation 97.4 % (94-97) H 05/24/17 20:19 Calcium 8.5 mg/dL (8.4-10.2) 05/25/17 12:09 Phosphorus 4.1 mg/dL (2.5-4.5) 05/25/17 03:00 Magnesium 1.9 mg/dL (1.6-2.3) 05/25/17 03:00 05/25/17 03:00 05/25/17 12:09 Assessment and Plan Plan: Assessment: #1. Nonoliguric acute kidney injury mostly prerenal secondary to hemodynamic instability and further worsened with the use of lisinopril. Creatinine was 2.7 on admission and is down to 1.77 today. No evidence of hydronephrosis noted on renal ultrasound. #2. Rule out chronic kidney disease. Unclear as to what his baseline kidney function is. Per the record his creatinine was 1.56 and 2012. Etiology is likely nephrosclerosis. #3. Bradycardia as outpatient. No evidence during this admission. Cardiology following. Seems to have resolved. #4. History of COPD. #5. Hyperkalemia secondary to acute kidney injury and further worsened with the use of lisinopril. Metabolic acidosis also a contributing factor. Improved with medical management. #6. Metabolic acidosis secondary to acute kidney injury. Improved. Plan: Continue normal saline at 100 mL an hour. Follow-up echocardiogram. Check urinalysis. Avoid nephrotoxic agents and hypotensive episodes - lisinopril currently held. Repeat electrolytes in the morning. Thank you for the consultation. I will continue to follow the patient with you during his hospital stay.
[2017-05-25 16:58] LABS: Glucose,Whole Blood 136 mg/dL (75-99)
[2017-05-25 18:21] LABS: Appearance,Urine Clear (Clear); Bilirubin,Urine Negative (Negative); Blood,Urine Moderate (Negative); Color,Urine Yellow; Glucose,Urine (UA) Trace (Negative); Ketones,Urine Negative (Negative); Leukocyte Esterase,Urine Negative (Negative); Mucus,Urine Rare /hpf; Nitrite,Urine Negative (Negative); PH, Urine 5.5 (5.0-8.0); Protein,Urine Negative (Negative); RBC,Urine 7 /hpf (0-5); Specific Gravity,Urine 1.018 (1.001-1.035); Squamous Epithelial Cell,Urine <1 /hpf (0-4); Urobilinogen,Urine <2.0 mg/dL (<2.0); WBC,Urine 5 /hpf (0-5)
[2017-05-25 20:20] LABS: Glucose,Whole Blood 214 mg/dL (75-99)
[2017-05-25] MEDS: PRAVASTATIN SODIUM 80 MG TAB PO SCH (20:20)
[2017-05-25] MEDS: ASPIRIN 81 MG PO SCH (20:20)
[2017-05-26] MEDS ORDERED: methylPREDNISolone SOD SUCCI 125 MG/2 ML VIAL ONE
[2017-05-26 03:46] LABS: Calcium 8.8 mg/dL (8.4-10.2); Magnesium 1.9 mg/dL (1.6-2.3); Phosphorus 2.5 mg/dL (2.5-4.5); Potassium 4.5 mmol/L (3.5-5.1)
[2017-05-26 04:28] LABS: Basophils % (A) 0 %; Eosinophils % (A) 0 %; HCT 31.6 % (39.0-53.0); HGB 10.7 gm/dL (13.0-17.5); Lymphocytes # (A) 0.4 k/uL (1.0-4.8); Lymphocytes % (A) 5 %; MCHC 33.8 g/dL (31.0-37.0); MCV 88.7 fL (80.0-100.0); Mean Platelet Volume 7.6; Monocytes # (A) 0.2 k/uL (0-1.0); Monocytes % (A) 3 %; Neutrophils # (A) 6.6 k/uL (1.3-7.7); Neutrophils % (A) 91 %; Platelet Count 207 k/uL (150-450); RBC 3.56 m/uL (4.30-5.90); RDW 13.3 % (11.5-15.5); WBC 7.2 k/uL (3.8-10.6)
[2017-05-26] MEDS: SODIUM CHLORIDE 0.9% 1,000 ML IV SCH ×3 (05:22→10:15)
[2017-05-26] MEDS: methylPREDNISolone SOD SUCCI 125 MG/2 ML VIAL IV SCH ×4 (05:22→18:06)
[2017-05-26] MEDS: HEPARIN SODIUM,PORCINE 5,000 UNIT/ML 1 ML VIAL SQ SCH ×3 (05:22→18:06)
[2017-05-26 07:44] LABS: Glucose,Whole Blood 151 mg/dL (75-99)
--- NOTE | 2017-05-26 08:19 | XR ---
EXAMINATION TYPE: XR chest 1V DATE OF EXAM: 05/26/2017 COMPARISON: Prior chest x-ray 05/25/2017 HISTORY: Shortness of breath TECHNIQUE: Single frontal view of the chest is obtained. FINDINGS: Patient is rotated and there are overlying cardiac leads. No pneumothorax or pleural effus ion. Cardiomediastinal silhouette, pulmonary vascularity and ricco are stable. No evident pneumonia. IMPRESSION: Stable exam. No acute abnormality.
[2017-05-26] MEDS: INSULIN ASPART 100 UNIT/ML 1 ML 10 ML VIAL SQ SCH ×4 (08:31→21:13)
--- NOTE | 2017-05-26 08:42 | PN ---
PROGRESS NOTE Mr. Perez is an 87-year-old male with a history of chronic obstructive lung disease, history of hypertension, chronic kidney disease, who presented with worsening dyspnea and possible bradycardia. He is feeling better. His breathing is better. He denied any chest pain. He denies any dizziness or palpitation. He is in sinus mechanism with occasional PVCs, but no evidence of significant bradyarrhythmia. Hemodynamically, he has been stable. He has continued to be at this time on aspirin 81 mg daily, methylprednisolone, pravastatin 80 mg daily. PHYSICAL EXAMINATION: Blood pressure 116/60 with the heart rate in the 70s. LUNGS: No wheezes. HEART: Regular rate and rhythm, S1, S2. No S3 with systolic murmur and diastolic murmur. ABDOMEN: Soft, nontender. EXTREMITIES: No edema. LAB DATA: Lab data revealed BUN and creatinine 50 and 1.7, potassium 4.5, hemoglobin of 10.7. Echocardiogram performed yesterday showed a normal left ventricle size and systolic function with mild tricuspid regurgitation. IMPRESSION: 1. Worsening dyspnea with exacerbation of chronic obstructive pulmonary disease, improving. 2. Possible bradycardia as an outpatient, although no documentation available, resolved. 3. History of hypertension, stable off treatment. 4. Renal failure, improving. 5. Hyperkalemia, resolving. RECOMMENDATION: From the cardiac standpoint, stable. We will continue following his blood pressure and depending on the trend, further recommendation will be made regarding the need to re- initiate antihypertensive treatment. At this time, I will increase his level of activity and if he is stable I would expect he should be able to be transferred to telemetry floor. MMLISAL / IJN: [id number] /
[2017-05-26] MEDS: SYMBICORT 80-4.5 MCG INHALER INHALATION SCH (08:44)
[2017-05-26] MEDS: IPRATROPIUM-ALBUTEROL 3 ML NEB INHALATION SCH ×4 (08:44→19:35)
[2017-05-26] MEDS: DOXYCYCLINE 50 MG CAP PO SCH ×2 (09:41→20:29)
--- NOTE | 2017-05-26 10:22 | P.PN ---
Subjective Patient is seen in follow-up for acute kidney injury. Renal function continues to improve with creatinine down to 1.7 today. Unclear as to what his base and new function is. According to the records his creatinine was 1.56 in 2012. No proteinuria noted on urinalysis. He was noted to have bradycardia as an outpatient which seems to have resolved. Currently sitting up in chair. Oral intake is good. He is nonoliguric. Hemodynamically stable. Vital signs are stable. General: The patient appeared well nourished and normally developed. HEENT: Head exam is unremarkable. Neck is without jugular venous distension. LUNGS: Lungs are clear to auscultation and percussion. Breath sounds decreased. HEART: Rate and Rhythm are regular. First and second heart sounds normal. No murmurs, rubs or gallops. ABDOMEN: Abdominal exam reveals normal bowel sounds. Non-tender and non- distended. No evidence of peritonitis. EXTREMITITES: No clubbing, cyanosis, or edema. Objective - Vital Signs Vital signs: Vital Signs Temp 98 F 05/26/17 08:00 Pulse 76 05/26/17 09:37 Resp 30 H 05/26/17 08:00 BP 102/56 05/26/17 08:00 Pulse Ox 94 L 05/26/17 08:00 Intake & Output 05/25/17 05/26/17 05/26/17 18:59 06:59 18:59 Intake Total 500 100 900 Output Total 220 200 Balance 280 -100 900 Weight 90.2 kg Intake: IV 500 100 900 Calcium Gluconate 1,000 300 mg In Sodium Chloride 0.9 % 100 ml @ 100 mls/hr IVPB ONCE ONE Rx#: [id number] Sodium Chloride 0.9% 1, 200 100 900 000 ml @ 100 mls/hr IV . Q10H [facility] Rx#:[id number] Output: Urine 220 200 Other: Voiding Method Urinal # Voids 1 2 1 # Bowel Movements 1 1 - Labs CBC & Chem 7: 05/26/17 03:15 05/26/17 03:15 Labs: Abnormal Lab Results - Last 24 Hours (Table) 05/25/17 05/25/17 05/25/17 Range/Units 11:58 12:09 16:44 RBC (4.30-5.90) m/uL Hgb (13.0-17.5) gm/dL Hct (39.0-53.0) % Lymphocytes # (1.0-4.8) k/uL Chloride (98-107) mmol/L BUN 56 H (9-20) mg/dL Creatinine 1.77 H (0.66-1.25) mg/dL Glucose 146 H (74-99) mg/dL POC Glucose (mg/dL) 145 H 136 H (75-99) mg/dL Urine Glucose (UA) (Negative) Urine Blood (Negative) Urine RBC (0-5) /hpf Urine Mucus (None) /hpf 05/25/17 05/25/17 05/26/17 Range/Units 18:03 20:07 03:15 RBC 3.56 L (4.30-5.90) m/uL Hgb 10.7 L (13.0-17.5) gm/dL Hct 31.6 L (39.0-53.0) % Lymphocytes # 0.4 L (1.0-4.8) k/uL Chloride (98-107) mmol/L BUN (9-20) mg/dL Creatinine (0.66-1.25) mg/dL Glucose (74-99) mg/dL POC Glucose (mg/dL) 214 H (75-99) mg/dL Urine Glucose (UA) Trace H (Negative) Urine Blood Moderate H (Negative) Urine RBC 7 H (0-5) /hpf Urine Mucus Rare H (None) /hpf 05/26/17 05/26/17 Range/Units 03:15 07:42 RBC (4.30-5.90) m/uL Hgb (13.0-17.5) gm/dL Hct (39.0-53.0) % Lymphocytes # (1.0-4.8) k/uL Chloride 111 H (98-107) mmol/L BUN 50 H (9-20) mg/dL Creatinine 1.70 H (0.66-1.25) mg/dL Glucose 150 H (74-99) mg/dL POC Glucose (mg/dL) 151 H (75-99) mg/dL Urine Glucose (UA) (Negative) Urine Blood (Negative) Urine RBC (0-5) /hpf Urine Mucus (None) /hpf Microbiology - Last 24 Hours (Table) 05/24/17 14:45 Blood Culture - Preliminary Blood No Growth after 24 hours Assessment and Plan Plan: Assessment: #1. Nonoliguric acute kidney injury mostly prerenal secondary to hemodynamic instability and further worsened with the use of lisinopril. Creatinine was 2.7 on admission and is down to 1.70 today. No evidence of hydronephrosis noted on renal ultrasound. No proteinuria on urinalysis. #2. Rule out chronic kidney disease. Unclear as to what his baseline kidney function is. Per the record his creatinine was 1.56 and 2012. Etiology is likely nephrosclerosis. #3. Bradycardia as outpatient. No evidence during this admission. Cardiology following. Seems to have resolved. #4. Dyspnea due to COPD exacerbation. #5. Hyperkalemia secondary to acute kidney injury and further worsened with the use of lisinopril. Metabolic acidosis also a contributing factor. Improved with medical management. #6. Metabolic acidosis secondary to acute kidney injury. Improved. Plan: I will decrease rate of normal saline to 60 mL an hour. Encouraged oral intake. Avoid nephrotoxic agents and hypotensive episodes - lisinopril currently held. Repeat electrolytes in the morning.
[2017-05-26 11:56] LABS: Glucose,Whole Blood 142 mg/dL (75-99)
--- NOTE | 2017-05-26 12:07 | P.PN ---
Subjective Progress Note Date: 05/26/17 Principal diagnosis: COPD exacerbation, bradycardia 87-year-old male with a history of chronic kidney disease unknown stage, COPD, hypertension who was admitted with a COPD exacerbation, bradycardia. Bradycardia has resolved, breathing has improved. Objective - Vital Signs Vital signs: Vital Signs Temp 98 F 05/26/17 08:00 Pulse 74 05/26/17 11:35 Resp 30 H 05/26/17 08:00 BP 102/56 05/26/17 08:00 Pulse Ox 94 L 05/26/17 08:00 Intake & Output 05/25/17 05/26/17 05/26/17 18:59 06:59 18:59 Intake Total 500 100 900 Output Total 220 200 Balance 280 -100 900 Weight 90.2 kg Intake: IV 500 100 900 Calcium Gluconate 1,000 300 mg In Sodium Chloride 0.9 % 100 ml @ 100 mls/hr IVPB ONCE ONE Rx#: [id number] Sodium Chloride 0.9% 1, 200 100 900 000 ml @ 100 mls/hr IV . Q10H [facility] Rx#:[id number] Output: Urine 220 200 Other: Voiding Method Urinal # Voids 1 2 1 # Bowel Movements 1 1 - Exam General: A/O x 3, NAD, Lying in bed comfortably HEENT: EOMI, MMM, atraumatic normocephalic Neck: Supple. No JVD, trachea midline CVS: Regular rate and rhythm. + S1/S2, no murmurs/gallops/rubs Respiratory: Bilateral air entry noted. Prolonged expiratory phase, no active wheezing Abdomen: Soft, nontender, nondistended Extremities: No lower extremity edema Skin: No rash or skin change noted Psych: Without hallucinations, abnormal affect, or abnormal behaviors during the examination - Labs CBC & Chem 7: 05/26/17 03:15 05/26/17 03:15 Labs: Abnormal Lab Results - Last 24 Hours (Table) 05/25/17 05/25/17 05/25/17 Range/Units 12:09 16:44 18:03 RBC (4.30-5.90) m/uL Hgb (13.0-17.5) gm/dL Hct (39.0-53.0) % Lymphocytes # (1.0-4.8) k/uL Chloride (98-107) mmol/L BUN 56 H (9-20) mg/dL Creatinine 1.77 H (0.66-1.25) mg/dL Glucose 146 H (74-99) mg/dL POC Glucose (mg/dL) 136 H (75-99) mg/dL Urine Glucose (UA) Trace H (Negative) Urine Blood Moderate H (Negative) Urine RBC 7 H (0-5) /hpf Urine Mucus Rare H (None) /hpf 05/25/17 05/26/17 05/26/17 Range/Units 20:07 03:15 03:15 RBC 3.56 L (4.30-5.90) m/uL Hgb 10.7 L (13.0-17.5) gm/dL Hct 31.6 L (39.0-53.0) % Lymphocytes # 0.4 L (1.0-4.8) k/uL Chloride 111 H (98-107) mmol/L BUN 50 H (9-20) mg/dL Creatinine 1.70 H (0.66-1.25) mg/dL Glucose 150 H (74-99) mg/dL POC Glucose (mg/dL) 214 H (75-99) mg/dL Urine Glucose (UA) (Negative) Urine Blood (Negative) Urine RBC (0-5) /hpf Urine Mucus (None) /hpf 05/26/17 05/26/17 Range/Units 07:42 11:54 RBC (4.30-5.90) m/uL Hgb (13.0-17.5) gm/dL Hct (39.0-53.0) % Lymphocytes # (1.0-4.8) k/uL Chloride (98-107) mmol/L BUN (9-20) mg/dL Creatinine (0.66-1.25) mg/dL Glucose (74-99) mg/dL POC Glucose (mg/dL) 151 H 142 H (75-99) mg/dL Urine Glucose (UA) (Negative) Urine Blood (Negative) Urine RBC (0-5) /hpf Urine Mucus (None) /hpf Microbiology - Last 24 Hours (Table) 05/24/17 14:45 Blood Culture - Preliminary Blood No Growth after 24 hours Assessment and Plan (1) Acute kidney injury superimposed on chronic kidney disease Current Visit: Yes Status: Acute Code(s): N17.9 - ACUTE KIDNEY FAILURE, UNSPECIFIED; N18.9 - CHRONIC KIDNEY DISEASE, UNSPECIFIED SNOMED Code(s): 88388790 (2) Hyperkalemia Current Visit: Yes Status: Acute Code(s): E87.5 - HYPERKALEMIA SNOMED Code (s): 02201244 (3) Metabolic acidosis Current Visit: Yes Status: Acute Code(s): E87.2 - ACIDOSIS SNOMED Code(s) : 08646356 (4) Bradycardia Current Visit: Yes Status: Acute Code(s): R00.1 - BRADYCARDIA, UNSPECIFIED SNOMED Code(s): 72531608 (5) History of abdominal aortic aneurysm Current Visit: Yes Status: Acute Code(s): Z86.79 - PERSONAL HISTORY OF OTHER DISEASES OF THE CIRCULATORY SYSTEM SNOMED Code(s): 538987356 (6) Acute exacerbation of chronic obstructive airways disease Current Visit: Yes Status: Acute Code(s): J44.1 - CHRONIC OBSTRUCTIVE PULMONARY DISEASE W (ACUTE) EXACERBATION SNOMED Code(s): 502111879 Plan: Acute kidney injury on chronic kidney disease Stage of chronic kidney disease is unknown Presented with a creatinine of 2.7 Downtrending to 1.7 today Creatinine of 1.56 noted in 2012 Nephrology on consult Likely prerenal, improving with IV fluids, decrease rate to 60 mL normal saline Home lisinopril discontinued Encourage oral intake Acute exacerbation of COPD On corticosteroids, bronchodilators, doxycycline Switch Solu-Medrol to prednisone Hyperkalemia Secondary to acute kidney injury and worsened by lisinopril use Was given Kayexalate, calcium gluconate, IV fluids and POLLO inhibitor were held Improved Metabolic acidosis Secondary to acute kidney injury Improved Bradycardia Noted at an urgent care prior to arrival Held beta blockers Resolved Patient does have a history of abdominal aortic aneurysm, will try reintroducing the beta ros
[2017-05-26] MEDS: ATENOLOL 12.5 MG TAB PO SCH (15:14)
[2017-05-26 16:54] LABS: Glucose,Whole Blood 149 mg/dL (75-99)
--- NOTE | 2017-05-26 17:30 | P.PN ---
Subjective Progress Note Date: 05/26/17 Mr. Holden is a 87-year-old white male patient of Dr. Brewer in [place], who presented to the emergency department on 05/24/2017 at 1415 per EMS for evaluation of his bradycardia. Patient was seen in the urgent care clinic for his increasing symptoms of chest congestion or shortness of breath over the past 2 weeks, was found to be bradycardic and was sent in for further evaluation and treatment. He stated 2 weeks ago he started feeling progressively weak, short of breath, felt like he was getting the flu, however denied any fever or chills. Does not see a lung specialist, but was told that he has COPD, not on any oxygen, is never seen a lung specialist in the past. He carries a [id number] smoking history, as have a history of service , was in the [employer] in the [place] [employer]. He quit smoking a while ago. His maintenance inhaler is Advair 250/50, and patient has a nebulizer machine at home. Patient's heart rate was in the 40s at the urgent care clinic, twelve- lead EKG completed in the emergency room showed sinus rhythm with left bundle branch block, and frequent PVCs with a rate of 65 BPM. Patient is afebrile, her dynamically stable, pulse ox in the 97-98% on room air. He denied any chest pain, denied any nausea or vomiting. Denied any headache, fever or chills. Lab work showed WBC of 8.7, hemoglobin 13.6, no evidence of coagulopathy, serum potassium is 5.6, B1 is 81, creatinine 2.70, carbon dioxide was 19. Lactic acid was 1.0, liver enzymes were all within normal limits, troponins were negative 3, proBNP on to be within normal limits at 1180, influenza screen was negative. Chest x-ray showed increased AP diameter and relative flattening of the diaphragms suggestive of underlying COPD, no acute cardiopulmonary process. Vision was given 2 L of IV bolus 0.9 normal saline, IV 0.9 normal saline is infusing at 100 ML per hour. Patient was given 1 dose of Kayexalate 30 g, he was given 1 amp of sodium bicarbonate, D50, calcium gluconate, and 10 units of regular insulin. Patient is voiding, on today's blood work potassium is 5.2, chloride is 108, carbon dioxide is 19, BUN is down to 73, creatinine is down to 2.30. Nephrology has been consulted. A blood gas treated in the emergency room shows a be a pO2 of 94, pCO2 37, pH of 7.33, this was done on FiO2 of 28%, and is consistent with metabolic acidosis related to acute renal failure. Ultrasound of the kidneys with no hydronephrosis. Repeat chest x-ray showed stable exam no acute abnormality. Patient was seen in consultation by cardiology, 2-D echocardiogram ordered. She was started on doxycycline, nebulized bronchodilators, Symbicort, IV Solu-Medrol, and today's exam patient is feeling better, less dyspneic. On 2 L per nasal cannula, with O2 sat 95%. Still has a congested cough, producing small amount of yellow sputum. Afebrile, hemodynamically stable. Does become a bit dyspneic with exertion. Denies any chest pain, denies any hemoptysis. On today's evaluation of 42,018 the patient is awake and alert and the patient is sitting up on a chair without any major respiratory difficulties. His cardiac rhythm is sinus. The patient has been doing well without any chest pain and shortness of breath is also improving. He is on IV fluids. His renal function is also improving and creatinine is down to 1.7. No fever. No chills. No altered mentation. No other significant events over the past 24 hours. The patient is quite stable for now. Note that his hyperkalemia is also recovered and the patient seems to have no significant arrhythmias at this point in time. The echocardiogram was also done that showed a ejection fraction of 665%. No other significant valvular abnormalities noted. Cardiac The Case. From the Pulmonary Standpoint, the Patient Is Improving. We'll Suggest Continuing the Bronchodilators and Steroids Follow 24 Hours and Will Start Tapering the Steroids As of Tomorrow. Objective - Vital Signs Vital signs: Vital Signs Temp 97.5 F L 05/26/17 12:00 Pulse 97 05/26/17 16:09 Resp 21 05/26/17 12:00 BP 110/58 05/26/17 12:00 Pulse Ox 95 05/26/17 12:00 Intake & Output 05/25/17 05/26/17 05/26/17 18:59 06:59 18:59 Intake Total 440 020 9254 Output Total 220 200 120 Balance 280 -100 1080 Weight 90.2 kg Intake: IV 449 452 2289 Calcium Gluconate 1,000 300 mg In Sodium Chloride 0.9 % 100 ml @ 100 mls/hr IVPB ONCE ONE Rx#: [id number] Sodium Chloride 0.9% 1, 306 650 6065 000 ml @ 100 mls/hr IV . Q10H [facility] Rx#:[id number] Output: Urine 220 200 120 Other: Voiding Method Urinal # Voids 1 2 1 # Bowel Movements 1 1 - Exam GENERAL EXAM: Alert, pleasant 87-year-old white male comfortable in no apparent distress. HEAD: Normocephalic/atraumatic. EYES: Normal reaction of pupils, equal size. Conjunctiva pink, sclera white. NOSE: Clear with pink turbinates. THROAT: No erythema or exudates. NECK: No masses, no JVD, no thyroid enlargement, no adenopathy. CHEST: No chest wall deformity. Symmetrical expansion. LUNGS: Diminished breath sounds bilaterally, with a few scattered rhonchi CVS: Regular rate and rhythm, normal S1 and S2, no gallops, no murmurs, no rubs. Patient remains in sinus rhythm with left bundle branch block, and frequent PVCs on the monitor ABDOMEN: Soft, nontender. No hepatosplenomegaly, normal bowel sounds, no guarding or rigidity. EXTREMITIES: No clubbing, no edema, no cyanosis, 2+ pulses and upper and lower extremities. MUSCULOSKELETAL: Muscle strength and tone normal. SPINE: No scoliosis or deformity SKIN: No rashes CENTRAL NERVOUS SYSTEM: Alert and oriented -3. No focal deficits, tone is normal in all 4 extremities. PSYCHIATRIC: Alert and oriented -3. Appropriate affect. Intact judgment and insight. - Labs CBC & Chem 7: 05/26/17 03:15 05/26/17 03:15 Labs: Abnormal Lab Results - Last 24 Hours (Table) 05/25/17 05/25/17 05/26/17 Range/Units 18:03 20:07 03:15 RBC 3.56 L (4.30-5.90) m/uL Hgb 10.7 L (13.0-17.5) gm/dL Hct 31.6 L (39.0-53.0) % Lymphocytes # 0.4 L (1.0-4.8) k/uL Chloride (98-107) mmol/L BUN (9-20) mg/dL Creatinine (0.66-1.25) mg/dL Glucose (74-99) mg/dL POC Glucose (mg/dL) 214 H (75-99) mg/dL Urine Glucose (UA) Trace H (Negative) Urine Blood Moderate H (Negative) Urine RBC 7 H (0-5) /hpf Urine Mucus Rare H (None) /hpf 05/26/17 05/26/17 05/26/17 Range/Units 03:15 07:42 11:54 RBC (4.30-5.90) m/uL Hgb (13.0-17.5) gm/dL Hct (39.0-53.0) % Lymphocytes # (1.0-4.8) k/uL Chloride 111 H (98-107) mmol/L BUN 50 H (9-20) mg/dL Creatinine 1.70 H (0.66-1.25) mg/dL Glucose 150 H (74-99) mg/dL POC Glucose (mg/dL) 151 H 142 H (75-99) mg/dL Urine Glucose (UA) (Negative) Urine Blood (Negative) Urine RBC (0-5) /hpf Urine Mucus (None) /hpf 05/26/17 Range/Units 16:52 RBC (4.30-5.90) m/uL Hgb (13.0-17.5) gm/dL Hct (39.0-53.0) % Lymphocytes # (1.0-4.8) k/uL Chloride (98-107) mmol/L BUN (9-20) mg/dL Creatinine (0.66-1.25) mg/dL Glucose (74-99) mg/dL POC Glucose (mg/dL) 149 H (75-99) mg/dL Urine Glucose (UA) (Negative) Urine Blood (Negative) Urine RBC (0-5) /hpf Urine Mucus (None) /hpf Microbiology - Last 24 Hours (Table) 05/24/17 14:45 Blood Culture - Preliminary Blood No Growth after 48 hours Assessment and Plan Plan: #1. Acute exacerbation of COPD , improving as the patient is being treated with a combination of bronchodilators and systemic steroids. Empiric is covered with doxycycline. #2. Bradycardia, currently under investigation, recovered. This was partly related to his hyperkalemia #3. Acute on chronic renal failure, baseline GFR is unknown. The baseline creatinine is felt to be around 1.5. The patient responded to IV fluids and creatinine is down to 1.7 #4. Hyperkalemia, secondary to acute on chronic renal failure, treated with IV fluids, Kayexalate, 10 units of insulin R, with D50, calcium gluconate, and the potassium level is normalized #5. Metabolic acidosis, related to acute renal failure, and the bicarb level is also normalized up to 23 #6. Normocytic normochromic anemia, stable with a hemoglobin of 10.7 #7. COPD, severity of which is unknown at this time #8. Nicotine dependence, currently in remission, patient carries a 30-pack- year smoking history. Patient has a history of service [employer] #9. Abdominal aortic aneurysm #10. Hypertension, dyslipidemia Plan The patient can be transferred to telemetry unit. Start tapering steroids as of tomorrow. Continue IV fluids. Monitor renal function. Monitor potassium level. We'll make further recommendations based on overall progress. Cardiology on the case. Echocardiogram was noted and the patient has no LV dysfunction. The patient can leave our intensive care unit. Hemoglobin is stable. The test level is stable. No other significant events over the past 24 hours.
[2017-05-26] MEDS: PRAVASTATIN SODIUM 80 MG TAB PO SCH (20:29)
[2017-05-26] MEDS: ASPIRIN 81 MG PO SCH (20:29)
[2017-05-26 21:13] LABS: Glucose,Whole Blood 157 mg/dL (75-99)
[2017-05-27] MEDS: methylPREDNISolone SOD SUCCI 125 MG/2 ML VIAL IV SCH ×2 (01:00→06:40)
[2017-05-27] MEDS: HEPARIN SODIUM,PORCINE 5,000 UNIT/ML 1 ML VIAL SQ SCH ×3 (01:00→15:11)
[2017-05-27] MEDS: SODIUM CHLORIDE 0.9% 1,000 ML IV SCH ×2 (03:11→09:25)
[2017-05-27 05:19] LABS: Basophils % (A) 0 %; Eosinophils % (A) 0 %; HCT 33.1 % (39.0-53.0); Lymphocytes # (A) 0.5 k/uL (1.0-4.8); Lymphocytes % (A) 7 %; MCH 29.5 pg (25.0-35.0); MCHC 33.1 g/dL (31.0-37.0); MCV 88.9 fL (80.0-100.0); Mean Platelet Volume 7.9; Monocytes # (A) 0.3 k/uL (0-1.0); Monocytes % (A) 4 %; Neutrophils # (A) 7.2 k/uL (1.3-7.7); Neutrophils % (A) 89 %; Platelet Count 223 k/uL (150-450); RBC 3.72 m/uL (4.30-5.90); RDW 13.5 % (11.5-15.5); WBC 8.2 k/uL (3.8-10.6)
[2017-05-27 05:37] LABS: Calcium 8.8 mg/dL (8.4-10.2); Magnesium 1.9 mg/dL (1.6-2.3); Potassium 4.4 mmol/L (3.5-5.1)
[2017-05-27] MEDS: IPRATROPIUM-ALBUTEROL 3 ML NEB INHALATION SCH ×4 (06:47→19:47)
[2017-05-27] MEDS: SYMBICORT 80-4.5 MCG INHALER INHALATION SCH (06:47)
[2017-05-27 07:35] LABS: Glucose,Whole Blood 161 mg/dL (75-99)
[2017-05-27] MEDS: INSULIN ASPART 100 UNIT/ML 1 ML 10 ML VIAL SQ SCH ×4 (08:04→21:40)
[2017-05-27] MEDS: ATENOLOL 12.5 MG TAB PO SCH (08:05)
[2017-05-27] MEDS: DOXYCYCLINE 50 MG CAP PO SCH ×2 (08:05→20:31)
--- NOTE | 2017-05-27 09:01 | P.PN ---
Subjective Progress Note Date: 05/27/17 Principal diagnosis: Acute exacerbation of COPD, improving, bradycardia Mr. Holden is a 87-year-old white male patient of Dr. Brewer in [place], who presented to the emergency department on 05/24/2017 at 1415 per EMS for evaluation of his bradycardia. Patient was seen in the urgent care clinic for his increasing symptoms of chest congestion or shortness of breath over the past 2 weeks, was found to be bradycardic and was sent in for further evaluation and treatment. He stated 2 weeks ago he started feeling progressively weak, short of breath, felt like he was getting the flu, however denied any fever or chills. Does not see a lung specialist, but was told that he has COPD, not on any oxygen, is never seen a lung specialist in the past. He carries a [id number] smoking history, as have a history of service , was in the [employer] in the [employer]. He quit smoking a while ago. His maintenance inhaler is Advair 250/50, and patient has a nebulizer machine at home. Patient's heart rate was in the 40s at the urgent care clinic, twelve- lead EKG completed in the emergency room showed sinus rhythm with left bundle branch block, and frequent PVCs with a rate of 65 BPM. Patient is afebrile, her dynamically stable, pulse ox in the 97-98% on room air. He denied any chest pain, denied any nausea or vomiting. Denied any headache, fever or chills. Lab work showed WBC of 8.7, hemoglobin 13.6, no evidence of coagulopathy, serum potassium is 5.6, B1 is 81, creatinine 2.70, carbon dioxide was 19. Lactic acid was 1.0, liver enzymes were all within normal limits, troponins were negative 3, proBNP on to be within normal limits at 1180, influenza screen was negative. Chest x-ray showed increased AP diameter and relative flattening of the diaphragms suggestive of underlying COPD, no acute cardiopulmonary process. Vision was given 2 L of IV bolus 0.9 normal saline, IV 0.9 normal saline is infusing at 100 ML per hour. Patient was given 1 dose of Kayexalate 30 g, he was given 1 amp of sodium bicarbonate, D50, calcium gluconate, and 10 units of regular insulin. Patient is voiding, on today's blood work potassium is 5.2, chloride is 108, carbon dioxide is 19, BUN is down to 73, creatinine is down to 2.30. Nephrology has been consulted. A blood gas treated in the emergency room shows a be a pO2 of 94, pCO2 37, pH of 7.33, this was done on FiO2 of 28%, and is consistent with metabolic acidosis related to acute renal failure. Ultrasound of the kidneys with no hydronephrosis. Repeat chest x-ray showed stable exam no acute abnormality. Patient was seen in consultation by cardiology, 2-D echocardiogram ordered. She was started on doxycycline, nebulized bronchodilators, Symbicort, IV Solu-Medrol, and today's exam patient is feeling better, less dyspneic. On 2 L per nasal cannula, with O2 sat 95%. Still has a congested cough, producing small amount of yellow sputum. Afebrile, hemodynamically stable. Does become a bit dyspneic with exertion. Denies any chest pain, denies any hemoptysis. On today's evaluation of 05/26/2017 the patient is awake and alert and the patient is sitting up on a chair without any major respiratory difficulties. His cardiac rhythm is sinus. The patient has been doing well without any chest pain and shortness of breath is also improving. He is on IV fluids. His renal function is also improving and creatinine is down to 1.7. No fever. No chills. No altered mentation. No other significant events over the past 24 hours. The patient is quite stable for now. Note that his hyperkalemia is also recovered and the patient seems to have no significant arrhythmias at this point in time. The echocardiogram was also done that showed a ejection fraction of 665%. No other significant valvular abnormalities noted. Cardiac The Case. From the Pulmonary Standpoint, the Patient Is Improving. We'll Suggest Continuing the Bronchodilators and Steroids Follow 24 Hours and Will Start Tapering the Steroids As of Tomorrow. On 05/27/2017 patient seen in follow-up in intensive care, he is still awaiting a bed on the stepdown monitored bed. Continues to improve, his today's the first day when he is able to take a deep breath. Lung sounds are diminished, patient still has a congested cough, is not bringing up any sputum. Still on 3 L per nasal cannula with O2 sat 97%. Vital signs are stable, patient is afebrile. Today's chest x-ray as been reviewed, and shows no evidence of acute pulmonary process. Patient has been treated with IV steroids, bronchodilators, and antibiotics his acute COPD with tracheobronchitis. Sinus rhythm with left bundle branch block on the monitor, with a heart rate at 72-86 BPM, with PACs. Today's lab work has been reviewed, WBC is within normal limits at 8.2, hemoglobin of 11.0, potassium is 4.4, chloride is 109, BUN is 40, and creatinine is 1.50, his renal profile continues to improve. He is tolerating oral intake, and is nonoliguric. His activity as tolerated, we will start tapering down the IV steroids, wean FiO2. Objective - Vital Signs Vital signs: Vital Signs Temp 97.8 F 05/27/17 08:00 Pulse 86 05/27/17 08:00 Resp 15 05/27/17 08:00 BP 110/67 05/27/17 08:00 Pulse Ox 95 05/27/17 08:00 Intake & Output 05/26/17 05/27/17 05/27/17 18:59 06:59 18:59 Intake Total 1200 1060 120 Output Total 120 730 Balance 1080 330 120 Weight 91.2 kg Intake: IV 1200 1060 Sodium Chloride 0.9% 1, 1200 1060 000 ml @ 100 mls/hr IV . Q10H [facility] Rx#:[id number] Intake, IV Titration 120 Amount Sodium Chloride 0.9% 1, 120 000 ml @ 60 mls/hr IV . [id number] [facility] Rx#:[id number] Output: Urine 120 730 Other: # Voids 1 1 # Bowel Movements 1 1 - Exam GENERAL EXAM: Alert, pleasant 87-year-old white male comfortable in no apparent distress. HEAD: Normocephalic/atraumatic. EYES: Normal reaction of pupils, equal size. Conjunctiva pink, sclera white. NOSE: Clear with pink turbinates. THROAT: No erythema or exudates. NECK: No masses, no JVD, no thyroid enlargement, no adenopathy. CHEST: No chest wall deformity. Symmetrical expansion. LUNGS: Diminished breath sounds bilaterally, no wheezes, no rhonchi, no rales CVS: Regular rate and rhythm, normal S1 and S2, no gallops, no murmurs, no rubs. Patient remains in sinus rhythm with left bundle branch block, and frequent PVCs on the monitor ABDOMEN: Soft, nontender. No hepatosplenomegaly, normal bowel sounds, no guarding or rigidity. EXTREMITIES: No clubbing, no edema, no cyanosis, 2+ pulses and upper and lower extremities. MUSCULOSKELETAL: Muscle strength and tone normal. SPINE: No scoliosis or deformity SKIN: No rashes CENTRAL NERVOUS SYSTEM: Alert and oriented -3. No focal deficits, tone is normal in all 4 extremities. PSYCHIATRIC: Alert and oriented -3. Appropriate affect. Intact judgment and insight. - Labs CBC & Chem 7: 05/27/17 04:56 05/27/17 04:56 Labs: Abnormal Lab Results - Last 24 Hours (Table) 05/26/17 05/26/17 05/26/17 Range/Units 11:54 16:52 21:11 RBC (4.30-5.90) m/uL Hgb (13.0-17.5) gm/dL Hct (39.0-53.0) % Lymphocytes # (1.0-4.8) k/uL Chloride (98-107) mmol/L BUN (9-20) mg/dL Creatinine (0.66-1.25) mg/dL Glucose (74-99) mg/dL POC Glucose (mg/dL) 142 H 149 H 157 H (75-99) mg/dL 05/27/17 05/27/17 05/27/17 Range/Units 04:56 04:56 07:33 RBC 3.72 L (4.30-5.90) m/uL Hgb 11.0 L (13.0-17.5) gm/dL Hct 33.1 L (39.0-53.0) % Lymphocytes # 0.5 L (1.0-4.8) k/uL Chloride 109 H (98-107) mmol/L BUN 40 H (9-20) mg/dL Creatinine 1.50 H (0.66-1.25) mg/dL Glucose 140 H (74-99) mg/dL POC Glucose (mg/dL) 161 H (75-99) mg/dL Microbiology - Last 24 Hours (Table) 05/24/17 14:45 Blood Culture - Preliminary Blood No Growth after 48 hours Assessment and Plan Plan: Assessment: #1. Acute exacerbation of COPD, improving and the patient has been treated with a combination of bronchodilators and systemic steroids. Empiric antibiotics in the form of doxycycline #2. Bradycardia, resolved #3. Acute on chronic renal failure, baseline GFR is unknown. #4. Hyperkalemia, secondary to acute on chronic renal failure, improved, and today's potassium is 4.4 #5. Metabolic acidosis, related to acute renal failure #6. Normocytic normochromic anemia #7. COPD, severity of which is unknown at this time #8. Nicotine dependence, currently in remission, patient carries a 30-pack- year smoking history. Patient has a history of service [employer] #9. Abdominal aortic aneurysm #10. Hypertension, dyslipidemia Plan: Patient is improving, weaning FiO2, increase activity as tolerated. Today's chest x-ray has been reviewed, there is no evidence of any acute pulmonary process. We'll stop the daily chest x-rays. Continue with empiric antibiotics , we'll decrease the IV Solu-Medrol to 40 mg every 8 hours. Continue bronchodilators. Patient can be transferred to the stepdown monitored bed today. I performed a history & physical examination of the patient and discussed their management with my nurse practitioner, Cass Berrios. I reviewed the nurse practitioner's note and agree with the documented findings and plan of care. Lung sounds are diminished breath sounds bilaterally. The findings and the impression was discussed with the patient. I attest to the documentation by the nurse practitioner. Time with Patient: Less than 30
--- NOTE | 2017-05-27 09:40 | P.PN ---
Subjective Patient is seen in follow-up for acute kidney injury. Renal function continues to improve with creatinine down to 1.5 today. Unclear as to what his base and new function is. According to the records his creatinine was 1.56 in 2012. No proteinuria noted on urinalysis. He was noted to have bradycardia as an outpatient which seems to have resolved. Currently sitting up in chair. Oral intake is good. He is nonoliguric. Hemodynamically stable. No changes overnight. Vital signs are stable. General: The patient appeared well nourished and normally developed. HEENT: Head exam is unremarkable. Neck is without jugular venous distension. LUNGS: Lungs are clear to auscultation and percussion. Breath sounds decreased. HEART: Rate and Rhythm are regular. First and second heart sounds normal. No murmurs, rubs or gallops. ABDOMEN: Abdominal exam reveals normal bowel sounds. Non-tender and non- distended. No evidence of peritonitis. EXTREMITITES: No clubbing, cyanosis, or edema. Objective - Vital Signs Vital signs: Vital Signs Temp 97.8 F 05/27/17 08:00 Pulse 86 05/27/17 08:00 Resp 15 05/27/17 08:00 BP 110/67 05/27/17 08:00 Pulse Ox 95 05/27/17 08:00 Intake & Output 05/26/17 05/27/17 05/27/17 18:59 06:59 18:59 Intake Total 1200 1060 120 Output Total 120 730 Balance 1080 330 120 Weight 91.2 kg Intake: IV 1200 1060 Sodium Chloride 0.9% 1, 1200 1060 000 ml @ 100 mls/hr IV . Q10H [facility] Rx#:[id number] Intake, IV Titration 120 Amount Sodium Chloride 0.9% 1, 120 000 ml @ 60 mls/hr IV . [id number] [facility] Rx#:[id number] Output: Urine 120 730 Other: # Voids 1 1 # Bowel Movements 1 1 - Labs CBC & Chem 7: 05/27/17 04:56 05/27/17 04:56 Labs: Abnormal Lab Results - Last 24 Hours (Table) 05/26/17 05/26/17 05/26/17 Range/Units 11:54 16:52 21:11 RBC (4.30-5.90) m/uL Hgb (13.0-17.5) gm/dL Hct (39.0-53.0) % Lymphocytes # (1.0-4.8) k/uL Chloride (98-107) mmol/L BUN (9-20) mg/dL Creatinine (0.66-1.25) mg/dL Glucose (74-99) mg/dL POC Glucose (mg/dL) 142 H 149 H 157 H (75-99) mg/dL 05/27/17 05/27/17 05/27/17 Range/Units 04:56 04:56 07:33 RBC 3.72 L (4.30-5.90) m/uL Hgb 11.0 L (13.0-17.5) gm/dL Hct 33.1 L (39.0-53.0) % Lymphocytes # 0.5 L (1.0-4.8) k/uL Chloride 109 H (98-107) mmol/L BUN 40 H (9-20) mg/dL Creatinine 1.50 H (0.66-1.25) mg/dL Glucose 140 H (74-99) mg/dL POC Glucose (mg/dL) 161 H (75-99) mg/dL Microbiology - Last 24 Hours (Table) 05/24/17 14:45 Blood Culture - Preliminary Blood No Growth after 48 hours Assessment and Plan Plan: Assessment: #1. Nonoliguric acute kidney injury mostly prerenal secondary to hemodynamic instability and further worsened with the use of lisinopril. Creatinine was 2.7 on admission and is down to 1.5 today. No evidence of hydronephrosis noted on renal ultrasound. No proteinuria on urinalysis. #2. Rule out chronic kidney disease. Unclear as to what his baseline kidney function is. Per the record his creatinine was 1.56 and 2012. Etiology is likely nephrosclerosis. #3. Bradycardia as outpatient. No evidence during this admission. Cardiology following. Seems to have resolved. #4. Dyspnea due to COPD exacerbation. #5. Hyperkalemia secondary to acute kidney injury and further worsened with the use of lisinopril. Metabolic acidosis also a contributing factor. Improved with medical management. #6. Metabolic acidosis secondary to acute kidney injury. Improved. Plan: I will decrease rate of normal saline to 50 mL an hour. Encouraged oral intake. Avoid nephrotoxic agents and hypotensive episodes - lisinopril currently held. Repeat electrolytes in the morning.
--- NOTE | 2017-05-27 10:01 | XR ---
EXAMINATION TYPE: XR chest 1V DATE OF EXAM: 05/27/2017 COMPARISON: Prior chest x-ray 05/26/2017 HISTORY: Shortness of breath TECHNIQUE: Single frontal view of the chest is obtained. FINDINGS: Patient is rotated and there are overlying cardiac leads. Cardiac mediastinal silhouette, pulmonary vascularity and ricco are stable. No airspace disease, pneumothorax, or pleural effusion kelsea dent. IMPRESSION: Stable exam. No acute abnormality evident.
[2017-05-27 12:24] LABS: Glucose,Whole Blood 139 mg/dL (75-99)
--- NOTE | 2017-05-27 12:25 | PN ---
PROGRESS NOTE Mr. Perez is an 87-year-old male who has a history of chronic obstructive lung disease, who presented with exacerbation of COPD. He had a possible bradycardia as an outpatient, although not well documented. He is feeling well this morning. His breathing has been stable. He is denying any chest pain. He denies any dizziness or palpitation. Hemodynamically he is stable. He feels that his breathing is better than when he came in. He continues to be at this time on aspirin once a day. Atenolol 12.5 mg daily, pravastatin 80 mg daily. PHYSICAL EXAMINATION: Blood pressure 110/60 with the heart rate in 70. LUNGS: No wheezes or rales. HEART: Regular rate and rhythm. S1, S2. No S3 with systolic murmur. ABDOMEN: Soft, nontender. EXTREMITIES: No edema. LAB DATA: Lab data revealed BUN and creatinine 40 and 1.5, potassium 4.4, hemoglobin of 11. IMPRESSION: 1. Exacerbation of chronic obstructive pulmonary disease, improving. 2. Possible bradycardia as an outpatient with no documentation available to me. 3. Renal failure, improving. 4. Hyperkalemia, resolved. 5. Hypertension, stable, off treatment. 6. History of abdominal aortic aneurysm. RECOMMENDATION: From the cardiac standpoint, the patient is stable. He will be transferred to telemetry floor. His activity level has been increased and I would expect he should be able to be discharged home soon. MMJOEL / LILIANA: [id number] /
--- NOTE | 2017-05-27 13:49 | P.PN ---
Subjective Progress Note Date: 05/27/17 Principal diagnosis: copd exacerbation Today patient is feeling better. Says he is 50% back to his normal no fever does have a cough Objective - Vital Signs Vital signs: Vital Signs Temp 97.7 F 05/27/17 12:00 Pulse 88 05/27/17 12:00 Resp 32 H 05/27/17 12:00 BP 113/55 05/27/17 12:00 Pulse Ox 96 05/27/17 12:00 Intake & Output 05/26/17 05/27/17 05/27/17 18:59 06:59 18:59 Intake Total 1200 1060 320 Output Total 120 730 Balance 1080 330 320 Weight 91.2 kg Intake: IV 1200 1060 Sodium Chloride 0.9% 1, 1200 1060 000 ml @ 100 mls/hr IV . Q10H [facility] Rx#:[id number] Intake, IV Titration 320 Amount Sodium Chloride 0.9% 1, 320 000 ml @ 60 mls/hr IV . [id number] [facility] Rx#:[id number] Output: Urine 120 730 Other: # Voids 1 1 1 # Bowel Movements 1 1 - Exam gen:alert and oriented lungs:clear to auscultation heart:s1s2 abdomen:soft and depressible,non tender ext:no edema - Labs CBC & Chem 7: 05/27/17 04:56 05/27/17 04:56 Labs: Abnormal Lab Results - Last 24 Hours (Table) 05/26/17 05/26/17 05/27/17 Range/Units 16:52 21:11 04:56 RBC 3.72 L (4.30-5.90) m/uL Hgb 11.0 L (13.0-17.5) gm/dL Hct 33.1 L (39.0-53.0) % Lymphocytes # 0.5 L (1.0-4.8) k/uL Chloride (98-107) mmol/L BUN (9-20) mg/dL Creatinine (0.66-1.25) mg/dL Glucose (74-99) mg/dL POC Glucose (mg/dL) 149 H 157 H (75-99) mg/dL 05/27/17 05/27/17 05/27/17 Range/Units 04:56 07:33 12:23 RBC (4.30-5.90) m/uL Hgb (13.0-17.5) gm/dL Hct (39.0-53.0) % Lymphocytes # (1.0-4.8) k/uL Chloride 109 H (98-107) mmol/L BUN 40 H (9-20) mg/dL Creatinine 1.50 H (0.66-1.25) mg/dL Glucose 140 H (74-99) mg/dL POC Glucose (mg/dL) 161 H 139 H (75-99) mg/dL Microbiology - Last 24 Hours (Table) 05/24/17 14:45 Blood Culture - Preliminary Blood No Growth after 48 hours Assessment and Plan (1) Acute exacerbation of chronic obstructive airways disease Narrative/Plan: Improving Prednisone taper DuoNeb Current Visit: Yes Status: Acute Code(s): J44.1 - CHRONIC OBSTRUCTIVE PULMONARY DISEASE W (ACUTE) EXACERBATION SNOMED Code(s): 606394642 (2) Acute kidney injury Narrative/Plan: Creatinine 1.5 improved Current Visit: Yes Status: Acute Code(s): N17.9 - ACUTE KIDNEY FAILURE, UNSPECIFIED SNOMED Code(s): 68100416 (3) Hyperkalemia Narrative/Plan: resolved Current Visit: Yes Status: Acute Code(s): E87.5 - HYPERKALEMIA SNOMED Code (s): 01158523 Plan: ok out of icu
[2017-05-27] MEDS: methylPREDNISolone SOD SUCCI 40 MG/ML 1 ML VIAL IV SCH (15:10)
[2017-05-27 16:44] LABS: HCT 28.2 % (39.0-53.0); MCH 29.1 pg (25.0-35.0); MCHC 32.6 g/dL (31.0-37.0); MCV 89.3 fL (80.0-100.0); Mean Platelet Volume 7.5; Platelet Count 264 k/uL (150-450); RBC 3.16 m/uL (4.30-5.90); RDW 13.5 % (11.5-15.5); WBC 11.4 k/uL (3.8-10.6)
[2017-05-27 16:45] LABS: HGB 9.2 gm/dL (13.0-17.5)
[2017-05-27 17:27] LABS: Glucose,Whole Blood 155 mg/dL (75-99)
[2017-05-27 20:07] LABS: HCT 27.8 % (39.0-53.0); MCH 29.3 pg (25.0-35.0); MCHC 32.6 g/dL (31.0-37.0); MCV 89.9 fL (80.0-100.0); Mean Platelet Volume 8.2; Platelet Count 260 k/uL (150-450); RBC 3.09 m/uL (4.30-5.90); RDW 13.7 % (11.5-15.5); WBC 12.8 k/uL (3.8-10.6)
[2017-05-27] MEDS: PRAVASTATIN SODIUM 80 MG TAB PO SCH (20:31)
[2017-05-27] MEDS: ASPIRIN 81 MG PO SCH (20:31)
[2017-05-27 20:52] LABS: Glucose,Whole Blood 187 mg/dL (75-99)
--- NOTE | 2017-05-27 21:31 | P.PN ---
Progress Note - Text Notified by nurse regarding Hemoglobin of 9. Patient has also positive blood in stool but no visible bleeding. Previous hemoglobin was 9.4. Admission hemoglobin few days ago was 13. Patient denies any abdominal pain melena or any nausea vomiting or any history of GI bleed. Vital signs are stable. Denies history of EGD or colonoscopy. His abdomen is soft nontender nondistended no rebound no focal tenderness. Plan is to monitor hemoglobin. At PPI. GI consulted. We'll order iron studies as well. Further action will be based on follow-up hemoglobin levels
[2017-05-27] MEDS: PANTOPRAZOLE 40 MG TABLET PO SCH (21:48)
[2017-05-27 23:49] LABS: HGB 8.3 gm/dL (13.0-17.5); MCH 28.5 pg (25.0-35.0); MCHC 31.9 g/dL (31.0-37.0); MCV 89.3 fL (80.0-100.0); Mean Platelet Volume 9.3; Platelet Count 226 k/uL (150-450); RBC 2.91 m/uL (4.30-5.90); RDW 13.7 % (11.5-15.5); WBC 10.9 k/uL (3.8-10.6)
[2017-05-28] MEDS: SODIUM CHLORIDE 0.9% 1,000 ML IV SCH (05:25)
[2017-05-28 05:26] LABS: HCT 25.5 % (39.0-53.0); HGB 8.2 gm/dL (13.0-17.5); MCH 28.8 pg (25.0-35.0); MCHC 32.1 g/dL (31.0-37.0); MCV 89.5 fL (80.0-100.0); Platelet Count 212 k/uL (150-450); RBC 2.85 m/uL (4.30-5.90); RDW 13.7 % (11.5-15.5); Reticulocyte % 2.1 % (0.5-2.0); WBC 9.4 k/uL (3.8-10.6)
[2017-05-28 05:40] LABS: Calcium 8.4 mg/dL (8.4-10.2); Magnesium 1.8 mg/dL (1.6-2.3); Phosphorus 1.8 mg/dL (2.5-4.5); Potassium 4.8 mmol/L (3.5-5.1)
[2017-05-28] MEDS: SYMBICORT 80-4.5 MCG INHALER INHALATION SCH (07:19)
[2017-05-28] MEDS: IPRATROPIUM-ALBUTEROL 3 ML NEB INHALATION SCH ×4 (07:19→19:39)
[2017-05-28 07:35] LABS: Glucose,Whole Blood 137 mg/dL (75-99)
[2017-05-28] MEDS: INSULIN ASPART 100 UNIT/ML 1 ML 10 ML VIAL SQ SCH ×4 (08:21→20:48)
[2017-05-28] MEDS: PANTOPRAZOLE 40 MG TABLET PO SCH ×2 (08:22→17:25)
[2017-05-28] MEDS: ATENOLOL 12.5 MG TAB PO SCH (08:22)
[2017-05-28] MEDS: methylPREDNISolone SOD SUCCI 40 MG/ML 1 ML VIAL IV SCH ×3 (08:22→17:25)
[2017-05-28] MEDS: DOXYCYCLINE 50 MG CAP PO SCH ×2 (08:23→20:13)
--- NOTE | 2017-05-28 10:47 | PN ---
PROGRESS NOTE Mr. Perez is an 87-year-old male who presented with symptoms of progressive dyspnea. He had a questionable episode of bradycardia, although not documented on the EKG. He is doing well this morning. He is denying any chest pain. His breathing has been stable. He denies any dizziness. He continues to be at this time on aspirin 81 mg daily, atenolol 12.5 mg daily, insulin, pravastatin 80 mg daily. PHYSICAL EXAMINATION: Blood pressure 117/60 with the heart rate in 90s. LUNGS: No wheezes with mild crackles. HEART: Regular rate and rhythm. S1, S2. No S3. No rub. ABDOMEN: Soft, nontender. EXTREMITIES: No edema. LAB DATA: Lab data revealed hemoglobin of 8.2, BUN and creatinine of 77 and 1.7. Potassium 4.8. IMPRESSION: 1. Exacerbation of chronic obstructive pulmonary disease, improved. 2. Questionable bradycardia. No recurrence. 3. Anemia. 4. Renal failure. RECOMMENDATION: From the cardiac standpoint, he is stable. We will continue present therapy. We will see him on as needed basis. Please feel free to call us for any question. MMODL / IJN: [id number] /
[2017-05-28 11:16] LABS: Iron Saturation 34.69 (15.00-50.00)
[2017-05-28 11:44] VITALS: BMI 30.8
[2017-05-28 12:23] LABS: Glucose,Whole Blood 143 mg/dL (75-99)
--- NOTE | 2017-05-28 13:26 | P.PN ---
Subjective Patient is seen in follow-up for acute kidney injury. Renal function worse today with creatinine at 1.7. Unclear as to what his base and new function is. According to the records his creatinine was 1.56 in 2012. No proteinuria noted on urinalysis. He was noted to have bradycardia as an outpatient which seems to have resolved. Currently sitting up in chair. Oral intake is good. He is nonoliguric. Hemodynamically stable. No changes overnight. Vital signs are stable. General: The patient appeared well nourished and normally developed. HEENT: Head exam is unremarkable. Neck is without jugular venous distension. LUNGS: Lungs are clear to auscultation and percussion. Breath sounds decreased. HEART: Rate and Rhythm are regular. First and second heart sounds normal. No murmurs, rubs or gallops. ABDOMEN: Abdominal exam reveals normal bowel sounds. Non-tender and non- distended. No evidence of peritonitis. EXTREMITITES: No clubbing, cyanosis, or edema. Objective - Vital Signs Vital signs: Vital Signs Temp 97.5 F L 05/28/17 08:00 Pulse 80 05/28/17 10:54 Resp 21 05/28/17 08:00 BP 117/65 05/28/17 08:00 Pulse Ox 92 L 05/28/17 09:00 Intake & Output 05/27/17 05/28/17 05/28/17 18:59 06:59 18:59 Intake Total 620 1100 Output Total 240 400 Balance 620 860 -400 Weight 91.9 kg 91.9 kg Intake: IV 400 Sodium Chloride 0.9% 1, 400 000 ml @ 100 mls/hr IV . Q10H [facility] Rx#:[id number] Intake, IV Titration 620 300 Amount Sodium Chloride 0.9% 1, 620 300 000 ml @ 60 mls/hr IV . [id number] [facility] Rx#:[id number] Oral 400 Output: Urine 240 400 Other: Voiding Method Urinal # Voids 1 1 1 # Bowel Movements 1 1 - Labs CBC & Chem 7: 05/28/17 04:58 05/28/17 04:58 Labs: Abnormal Lab Results - Last 24 Hours (Table) 05/27/17 05/27/17 05/27/17 Range/Units 16:31 17:24 19:58 WBC 11.4 H 12.8 H (3.8-10.6) k/uL RBC 3.16 L 3.09 L (4.30-5.90) m/uL Hgb 9.2 L D 9.0 L (13.0-17.5) gm/dL Hct 28.2 L 27.8 L (39.0-53.0) % Retic Count (0.5-2.0) % Chloride (98-107) mmol/L BUN (9-20) mg/dL Creatinine (0.66-1.25) mg/dL Glucose (74-99) mg/dL POC Glucose (mg/dL) 155 H (75-99) mg/dL Phosphorus (2.5-4.5) mg/dL 05/27/17 05/27/17 05/28/17 Range/Units 20:50 23:37 04:58 WBC 10.9 H (3.8-10.6) k/uL RBC 2.91 L (4.30-5.90) m/uL Hgb 8.3 L (13.0-17.5) gm/dL Hct 26.0 L (39.0-53.0) % Retic Count (0.5-2.0) % Chloride 109 H (98-107) mmol/L BUN 77 H (9-20) mg/dL Creatinine 1.70 H (0.66-1.25) mg/dL Glucose 136 H (74-99) mg/dL POC Glucose (mg/dL) 187 H (75-99) mg/dL Phosphorus 1.8 L (2.5-4.5) mg/dL 05/28/17 05/28/17 05/28/17 Range/Units 04:58 07:26 12:03 WBC (3.8-10.6) k/uL RBC 2.85 L (4.30-5.90) m/uL Hgb 8.2 L (13.0-17.5) gm/dL Hct 25.5 L (39.0-53.0) % Retic Count 2.1 H (0.5-2.0) % Chloride (98-107) mmol/L BUN (9-20) mg/dL Creatinine (0.66-1.25) mg/dL Glucose (74-99) mg/dL POC Glucose (mg/dL) 137 H 143 H (75-99) mg/dL Phosphorus (2.5-4.5) mg/dL Microbiology - Last 24 Hours (Table) 05/24/17 14:45 Blood Culture - Preliminary Blood No Growth after 72 hours Assessment and Plan Plan: Assessment: #1. Nonoliguric acute kidney injury mostly prerenal secondary to hemodynamic instability and further worsened with the use of lisinopril. Creatinine was 2.7 on admission and did come down to 1.5 on May 27 - 1.7 today. No evidence of hydronephrosis noted on renal ultrasound. No proteinuria on urinalysis. #2. Rule out chronic kidney disease. Unclear as to what his baseline kidney function is. Per the record his creatinine was 1.56 and 2012. Etiology is likely nephrosclerosis. #3. Bradycardia as outpatient. No evidence during this admission. Cardiology following. Seems to have resolved. #4. Dyspnea due to COPD exacerbation. #5. Hyperkalemia secondary to acute kidney injury and further worsened with the use of lisinopril. Metabolic acidosis also a contributing factor. Improved with medical management. #6. Metabolic acidosis secondary to acute kidney injury. Improved. #7. Anemia of chronic kidney disease. Iron replete. GI recommendations pending. Plan: Maintain normal saline at 50 mL an hour. Add Aranesp. Encouraged oral intake. Avoid nephrotoxic agents and hypotensive episodes - lisinopril currently held. Repeat electrolytes in the morning.
[2017-05-28] MEDS ORDERED: DARBEPOETIN ALFA 40 MCG/0.4 ML SYRINGE SQ SCH (14:00)
--- NOTE | 2017-05-28 14:50 | P.PN ---
Subjective Progress Note Date: 05/28/17 Principal diagnosis: Acute exacerbation of COPD, improving, bradycardia Mr. Holden is a 87-year-old white male patient of Dr. Brewer in [place], who presented to the emergency department on 05/24/2017 at 1415 per EMS for evaluation of his bradycardia. Patient was seen in the urgent care clinic for his increasing symptoms of chest congestion or shortness of breath over the past 2 weeks, was found to be bradycardic and was sent in for further evaluation and treatment. He stated 2 weeks ago he started feeling progressively weak, short of breath, felt like he was getting the flu, however denied any fever or chills. Does not see a lung specialist, but was told that he has COPD, not on any oxygen, is never seen a lung specialist in the past. He carries a [id number] smoking history, as have a history of service , was in the [employer] in the [employer]. He quit smoking a while ago. His maintenance inhaler is Advair 250/50, and patient has a nebulizer machine at home. Patient's heart rate was in the 40s at the urgent care clinic, twelve- lead EKG completed in the emergency room showed sinus rhythm with left bundle branch block, and frequent PVCs with a rate of 65 BPM. Patient is afebrile, her dynamically stable, pulse ox in the 97-98% on room air. He denied any chest pain, denied any nausea or vomiting. Denied any headache, fever or chills. Lab work showed WBC of 8.7, hemoglobin 13.6, no evidence of coagulopathy, serum potassium is 5.6, B1 is 81, creatinine 2.70, carbon dioxide was 19. Lactic acid was 1.0, liver enzymes were all within normal limits, troponins were negative 3, proBNP on to be within normal limits at 1180, influenza screen was negative. Chest x-ray showed increased AP diameter and relative flattening of the diaphragms suggestive of underlying COPD, no acute cardiopulmonary process. Vision was given 2 L of IV bolus 0.9 normal saline, IV 0.9 normal saline is infusing at 100 ML per hour. Patient was given 1 dose of Kayexalate 30 g, he was given 1 amp of sodium bicarbonate, D50, calcium gluconate, and 10 units of regular insulin. Patient is voiding, on today's blood work potassium is 5.2, chloride is 108, carbon dioxide is 19, BUN is down to 73, creatinine is down to 2.30. Nephrology has been consulted. A blood gas treated in the emergency room shows a be a pO2 of 94, pCO2 37, pH of 7.33, this was done on FiO2 of 28%, and is consistent with metabolic acidosis related to acute renal failure. Ultrasound of the kidneys with no hydronephrosis. Repeat chest x-ray showed stable exam no acute abnormality. Patient was seen in consultation by cardiology, 2-D echocardiogram ordered. She was started on doxycycline, nebulized bronchodilators, Symbicort, IV Solu-Medrol, and today's exam patient is feeling better, less dyspneic. On 2 L per nasal cannula, with O2 sat 95%. Still has a congested cough, producing small amount of yellow sputum. Afebrile, hemodynamically stable. Does become a bit dyspneic with exertion. Denies any chest pain, denies any hemoptysis. On today's evaluation of 05/26/2017 the patient is awake and alert and the patient is sitting up on a chair without any major respiratory difficulties. His cardiac rhythm is sinus. The patient has been doing well without any chest pain and shortness of breath is also improving. He is on IV fluids. His renal function is also improving and creatinine is down to 1.7. No fever. No chills. No altered mentation. No other significant events over the past 24 hours. The patient is quite stable for now. Note that his hyperkalemia is also recovered and the patient seems to have no significant arrhythmias at this point in time. The echocardiogram was also done that showed a ejection fraction of 665%. No other significant valvular abnormalities noted. Cardiac The Case. From the Pulmonary Standpoint, the Patient Is Improving. We'll Suggest Continuing the Bronchodilators and Steroids Follow 24 Hours and Will Start Tapering the Steroids As of Tomorrow. On 05/27/2017 patient seen in follow-up in intensive care, he is still awaiting a bed on the stepdown monitored bed. Continues to improve, his today's the first day when he is able to take a deep breath. Lung sounds are diminished, patient still has a congested cough, is not bringing up any sputum. Still on 3 L per nasal cannula with O2 sat 97%. Vital signs are stable, patient is afebrile. Today's chest x-ray as been reviewed, and shows no evidence of acute pulmonary process. Patient has been treated with IV steroids, bronchodilators, and antibiotics his acute COPD with tracheobronchitis. Sinus rhythm with left bundle branch block on the monitor, with a heart rate at 72-86 BPM, with PACs. Today's lab work has been reviewed, WBC is within normal limits at 8.2, hemoglobin of 11.0, potassium is 4.4, chloride is 109, BUN is 40, and creatinine is 1.50, his renal profile continues to improve. He is tolerating oral intake, and is nonoliguric. His activity as tolerated, we will start tapering down the IV steroids, wean FiO2. On 05/28/2017 patient seen in follow-up, still awaiting a bed on the regular medical surgical floor. He continues to improve, denies any worsening dyspnea, less signs are stable, no further arrhythmias, no bradycardia. Afebrile, his been up in the lung to the bathroom, tolerating activity well. Continue weaning FiO2, patient does not wear oxygen at his baseline. On room air, with O2 sat at 92%. Respirations are even and nonlabored, lung sounds positive for a few minimal rhonchi. Continue current medical treatment. Objective - Vital Signs Vital signs: Vital Signs Temp 98.0 F 05/28/17 14:34 Pulse 80 05/28/17 14:34 Resp 14 05/28/17 14:34 BP 106/52 05/28/17 14:34 Pulse Ox 92 L 05/28/17 14:34 Intake & Output 05/27/17 05/28/17 05/28/17 18:59 06:59 18:59 Intake Total 620 1100 Output Total 240 400 Balance 620 860 -400 Weight 91.9 kg 91.9 kg Intake: IV 400 Sodium Chloride 0.9% 1, 400 000 ml @ 100 mls/hr IV . Q10H [facility] Rx#:[id number] Intake, IV Titration 620 300 Amount Sodium Chloride 0.9% 1, 620 300 000 ml @ 60 mls/hr IV . [id number] [facility] Rx#:[id number] Oral 400 Output: Urine 240 400 Other: Voiding Method Urinal # Voids 1 1 1 # Bowel Movements 1 1 - Exam GENERAL EXAM: Alert, pleasant 87-year-old white male comfortable in no apparent distress. HEAD: Normocephalic/atraumatic. EYES: Normal reaction of pupils, equal size. Conjunctiva pink, sclera white. NOSE: Clear with pink turbinates. THROAT: No erythema or exudates. NECK: No masses, no JVD, no thyroid enlargement, no adenopathy. CHEST: No chest wall deformity. Symmetrical expansion. LUNGS: Diminished breath sounds bilaterally, no wheezes, no rhonchi, no rales CVS: Regular rate and rhythm, normal S1 and S2, no gallops, no murmurs, no rubs. Patient remains in sinus rhythm with left bundle branch block ABDOMEN: Soft, nontender. No hepatosplenomegaly, normal bowel sounds, no guarding or rigidity. EXTREMITIES: No clubbing, no edema, no cyanosis, 2+ pulses and upper and lower extremities. MUSCULOSKELETAL: Muscle strength and tone normal. SPINE: No scoliosis or deformity SKIN: No rashes CENTRAL NERVOUS SYSTEM: Alert and oriented -3. No focal deficits, tone is normal in all 4 extremities. PSYCHIATRIC: Alert and oriented -3. Appropriate affect. Intact judgment and insight. - Labs CBC & Chem 7: 05/28/17 04:58 05/28/17 04:58 Labs: Abnormal Lab Results - Last 24 Hours (Table) 05/27/17 05/27/17 05/27/17 Range/Units 16:31 17:24 19:58 WBC 11.4 H 12.8 H (3.8-10.6) k/uL RBC 3.16 L 3.09 L (4.30-5.90) m/uL Hgb 9.2 L D 9.0 L (13.0-17.5) gm/dL Hct 28.2 L 27.8 L (39.0-53.0) % Retic Count (0.5-2.0) % Chloride (98-107) mmol/L BUN (9-20) mg/dL Creatinine (0.66-1.25) mg/dL Glucose (74-99) mg/dL POC Glucose (mg/dL) 155 H (75-99) mg/dL Phosphorus (2.5-4.5) mg/dL 05/27/17 05/27/17 05/28/17 Range/Units 20:50 23:37 04:58 WBC 10.9 H (3.8-10.6) k/uL RBC 2.91 L (4.30-5.90) m/uL Hgb 8.3 L (13.0-17.5) gm/dL Hct 26.0 L (39.0-53.0) % Retic Count (0.5-2.0) % Chloride 109 H (98-107) mmol/L BUN 77 H (9-20) mg/dL Creatinine 1.70 H (0.66-1.25) mg/dL Glucose 136 H (74-99) mg/dL POC Glucose (mg/dL) 187 H (75-99) mg/dL Phosphorus 1.8 L (2.5-4.5) mg/dL 05/28/17 05/28/17 05/28/17 Range/Units 04:58 07:26 12:03 WBC (3.8-10.6) k/uL RBC 2.85 L (4.30-5.90) m/uL Hgb 8.2 L (13.0-17.5) gm/dL Hct 25.5 L (39.0-53.0) % Retic Count 2.1 H (0.5-2.0) % Chloride (98-107) mmol/L BUN (9-20) mg/dL Creatinine (0.66-1.25) mg/dL Glucose (74-99) mg/dL POC Glucose (mg/dL) 137 H 143 H (75-99) mg/dL Phosphorus (2.5-4.5) mg/dL Microbiology - Last 24 Hours (Table) 05/24/17 14:45 Blood Culture - Preliminary Blood No Growth after 72 hours Assessment and Plan Plan: Assessment: #1. Acute exacerbation of COPD, improving and the patient has been treated with a combination of bronchodilators and systemic steroids. Empiric antibiotics in the form of doxycycline #2. Bradycardia, resolved #3. Acute on chronic renal failure, baseline GFR is unknown. #4. Hyperkalemia, secondary to acute on chronic renal failure, improved, and today's potassium is 4.4 #5. Metabolic acidosis, related to acute renal failure #6. Normocytic normochromic anemia #7. COPD, severity of which is unknown at this time #8. Nicotine dependence, currently in remission, patient carries a 30-pack- year smoking history. Patient has a history of service [employer] #9. Abdominal aortic aneurysm #10. Hypertension, dyslipidemia Plan: Patient continues to improve, continue current medical treatment, still awaiting a bed and regular medical surgical floor. Increase activity as tolerated. Continue IV Solu-Medrol and nebulized treatments. We'll continue to follow I performed a history & physical examination of the patient and discussed their management with my nurse practitioner, Cass Berrios. I reviewed the nurse practitioner's note and agree with the documented findings and plan of care. Lung sounds are diminished breath sounds bilaterally. The findings and the impression was discussed with the patient. I attest to the documentation by the nurse practitioner. Time with Patient: Less than 30
--- NOTE | 2017-05-28 15:06 | P.PN ---
Subjective Progress Note Date: 05/28/17 Principal diagnosis: copd exacerbation Today patient is feeling better. nursing noticed black stools, no fever, still sob with exertion Objective - Vital Signs Vital signs: Vital Signs Temp 98.0 F 05/28/17 14:34 Pulse 80 05/28/17 14:34 Resp 14 05/28/17 14:34 BP 106/52 05/28/17 14:34 Pulse Ox 92 L 05/28/17 14:34 Intake & Output 05/27/17 05/28/17 05/28/17 18:59 06:59 18:59 Intake Total 620 1100 Output Total 240 400 Balance 620 860 -400 Weight 91.9 kg 91.9 kg Intake: IV 400 Sodium Chloride 0.9% 1, 400 000 ml @ 100 mls/hr IV . Q10H [facility] Rx#:[id number] Intake, IV Titration 620 300 Amount Sodium Chloride 0.9% 1, 620 300 000 ml @ 60 mls/hr IV . [id number] [facility] Rx#:[id number] Oral 400 Output: Urine 240 400 Other: Voiding Method Urinal # Voids 1 1 1 # Bowel Movements 1 1 - Exam gen:alert and oriented lungs:clear to auscultation heart:s1s2 abdomen:soft and depressible,non tender ext:no edema - Labs CBC & Chem 7: 05/28/17 04:58 05/28/17 04:58 Labs: Abnormal Lab Results - Last 24 Hours (Table) 05/27/17 05/27/17 05/27/17 Range/Units 16:31 17:24 19:58 WBC 11.4 H 12.8 H (3.8-10.6) k/uL RBC 3.16 L 3.09 L (4.30-5.90) m/uL Hgb 9.2 L D 9.0 L (13.0-17.5) gm/dL Hct 28.2 L 27.8 L (39.0-53.0) % Retic Count (0.5-2.0) % Chloride (98-107) mmol/L BUN (9-20) mg/dL Creatinine (0.66-1.25) mg/dL Glucose (74-99) mg/dL POC Glucose (mg/dL) 155 H (75-99) mg/dL Phosphorus (2.5-4.5) mg/dL 04/19/18 04/19/18 04/20/18 Range/Units 20:50 23:37 04:58 WBC 10.9 H (3.8-10.6) k/uL RBC 2.91 L (4.30-5.90) m/uL Hgb 8.3 L (13.0-17.5) gm/dL Hct 26.0 L (39.0-53.0) % Retic Count (0.5-2.0) % Chloride 109 H (98-107) mmol/L BUN 77 H (9-20) mg/dL Creatinine 1.70 H (0.66-1.25) mg/dL Glucose 136 H (74-99) mg/dL POC Glucose (mg/dL) 187 H (75-99) mg/dL Phosphorus 1.8 L (2.5-4.5) mg/dL 05/28/17 05/28/17 05/28/17 Range/Units 04:58 07:26 12:03 WBC (3.8-10.6) k/uL RBC 2.85 L (4.30-5.90) m/uL Hgb 8.2 L (13.0-17.5) gm/dL Hct 25.5 L (39.0-53.0) % Retic Count 2.1 H (0.5-2.0) % Chloride (98-107) mmol/L BUN (9-20) mg/dL Creatinine (0.66-1.25) mg/dL Glucose (74-99) mg/dL POC Glucose (mg/dL) 137 H 143 H (75-99) mg/dL Phosphorus (2.5-4.5) mg/dL Microbiology - Last 24 Hours (Table) 05/24/17 14:45 Blood Culture - Preliminary Blood No Growth after 72 hours Assessment and Plan (1) Acute exacerbation of chronic obstructive airways disease Narrative/Plan: Continues on DuoNeb and IV Solu-Medrol Current Visit: Yes Status: Acute Code(s): J44.1 - CHRONIC OBSTRUCTIVE PULMONARY DISEASE W (ACUTE) EXACERBATION SNOMED Code(s): 878321340 (2) Acute kidney injury Narrative/Plan: Resolved Current Visit: Yes Status: Acute Code(s): N17.9 - ACUTE KIDNEY FAILURE, UNSPECIFIED SNOMED Code(s): 77017911 (3) Hyperkalemia Narrative/Plan: Resolved Current Visit: Yes Status: Acute Code(s): E87.5 - HYPERKALEMIA SNOMED Code (s): 37797383 (4) Gastrointestinal bleed Narrative/Plan: Hemoglobin stable No further bleeding per nursing Current Visit: Yes Status: Acute Code(s): K92.2 - GASTROINTESTINAL HEMORRHAGE, UNSPECIFIED SNOMED Code(s): 91645245
[2017-05-28 17:39] LABS: Glucose,Whole Blood 132 mg/dL (75-99)
[2017-05-28] MEDS: PRAVASTATIN SODIUM 80 MG TAB PO SCH (20:13)
[2017-05-28] MEDS: ASPIRIN 81 MG PO SCH (20:13)
[2017-05-28 20:39] LABS: Glucose,Whole Blood 204 mg/dL (75-99)
[2017-05-29] MEDS: methylPREDNISolone SOD SUCCI 40 MG/ML 1 ML VIAL IV SCH ×3 (00:58→17:40)
[2017-05-29] MEDS: SODIUM CHLORIDE 0.9% 1,000 ML IV SCH ×2 (05:28→21:29)
[2017-05-29] MEDS: SYMBICORT 80-4.5 MCG INHALER INHALATION SCH (08:22)
[2017-05-29] MEDS: IPRATROPIUM-ALBUTEROL 3 ML NEB INHALATION SCH ×4 (08:22→21:11)
[2017-05-29 08:28] LABS: HCT 25.1 % (39.0-53.0); MCH 28.5 pg (25.0-35.0); MCHC 31.7 g/dL (31.0-37.0); MCV 89.9 fL (80.0-100.0); Mean Platelet Volume 8.3; Platelet Count 245 k/uL (150-450); RBC 2.79 m/uL (4.30-5.90); RDW 13.8 % (11.5-15.5); WBC 10.3 k/uL (3.8-10.6)
[2017-05-29 08:43] LABS: Calcium 8.9 mg/dL (8.4-10.2); Magnesium 1.9 mg/dL (1.6-2.3); Potassium 4.5 mmol/L (3.5-5.1)
[2017-05-29 08:50] LABS: Glucose,Whole Blood 154 mg/dL (75-99)
[2017-05-29] MEDS: INSULIN ASPART 100 UNIT/ML 1 ML 10 ML VIAL SQ SCH ×4 (08:55→21:28)
[2017-05-29] MEDS: ATENOLOL 12.5 MG TAB PO SCH (08:56)
[2017-05-29] MEDS: PANTOPRAZOLE 40 MG TABLET PO SCH ×2 (08:56→17:40)
[2017-05-29] MEDS: DOXYCYCLINE 50 MG CAP PO SCH ×2 (08:56→21:28)
--- NOTE | 2017-05-29 10:08 | P.PN ---
Subjective Progress Note Date: 05/29/17 Principal diagnosis: shortness of breath Breathing is better today, still with cough nonproductive. Per nursing patient did have 2 black stools yesterday. Denies any abdominal pain no hematemesis, no loss of appetite Objective - Vital Signs Vital signs: Vital Signs Temp 97.1 F L 05/29/17 08:10 Pulse 82 05/29/17 08:46 Resp 18 05/29/17 08:10 BP 122/69 05/29/17 08:10 Pulse Ox 96 05/29/17 08:10 Intake & Output 05/28/17 05/29/17 05/29/17 18:59 06:59 18:59 Intake Total 960 720 Output Total 400 Balance 560 720 Weight 91.9 kg 91.9 kg Intake: Oral 960 720 Output: Urine 400 Other: Voiding Method Urinal Toilet Toilet Urinal Urinal # Voids 1 6 - Exam gen:alert and oriented lungs:clear to auscultation heart:s1s2 abdomen:soft and depressible,non tender ext:no edema - Labs CBC & Chem 7: 05/29/17 07:12 05/29/17 07:12 Labs: Abnormal Lab Results - Last 24 Hours (Table) 05/28/17 05/28/17 05/28/17 Range/Units 12:03 17:35 20:37 RBC (4.30-5.90) m/uL Hgb (13.0-17.5) gm/dL Hct (39.0-53.0) % Chloride (98-107) mmol/L BUN (9-20) mg/dL Creatinine (0.66-1.25) mg/dL Glucose (74-99) mg/dL POC Glucose (mg/dL) 143 H 132 H 204 H (75-99) mg/dL 05/29/17 05/29/17 05/29/17 Range/Units 07:12 07:12 08:09 RBC 2.79 L (4.30-5.90) m/uL Hgb 8.0 L (13.0-17.5) gm/dL Hct 25.1 L (39.0-53.0) % Chloride 108 H (98-107) mmol/L BUN 61 H (9-20) mg/dL Creatinine 1.78 H (0.66-1.25) mg/dL Glucose 128 H (74-99) mg/dL POC Glucose (mg/dL) 154 H (75-99) mg/dL Microbiology - Last 24 Hours (Table) 05/24/17 14:45 Blood Culture - Preliminary Blood No Growth after 96 hours Assessment and Plan (1) Acute exacerbation of chronic obstructive airways disease Narrative/Plan: IV Solu-Medrol conitinue duonebs Current Visit: Yes Status: Acute Code(s): J44.1 - CHRONIC OBSTRUCTIVE PULMONARY DISEASE W (ACUTE) EXACERBATION SNOMED Code(s): 496824544 (2) Acute kidney injury Narrative/Plan: creatinine stable Current Visit: Yes Status: Acute Code(s): N17.9 - ACUTE KIDNEY FAILURE, UNSPECIFIED SNOMED Code(s): 66835063 (3) Hyperkalemia Narrative/Plan: resolved Current Visit: Yes Status: Acute Code(s): E87.5 - HYPERKALEMIA SNOMED Code (s): 59178171 (4) Gastrointestinal bleed Narrative/Plan: still with melena(had 2 episodes yesterday) GI to evaluate for need for colonoscopy Current Visit: Yes Status: Acute Code(s): K92.2 - GASTROINTESTINAL HEMORRHAGE, UNSPECIFIED SNOMED Code(s): 57799035 (5) Blood loss anemia Narrative/Plan: hemoglobin worsening Current Visit: Yes Status: Acute Code(s): D50.0 - IRON DEFICIENCY ANEMIA SECONDARY TO BLOOD LOSS (CHRONIC) SNOMED Code(s): 575512730
--- NOTE | 2017-05-29 10:35 | P.PN ---
Subjective Patient is seen in follow-up for acute kidney injury. Renal function is little worse with creatinine at 1.78. Unclear as to what his baseline renal function is. According to the records his creatinine was 1.56 in 2012. No proteinuria noted on urinalysis. He was noted to have bradycardia as an outpatient which seems to have resolved. Currently sitting up in chair. Oral intake is good. He is nonoliguric. Hemodynamically stable. He's been having black stools. Hemoglobin is down to 8.0 today. Vital signs are stable. General: The patient appeared well nourished and normally developed. HEENT: Head exam is unremarkable. Neck is without jugular venous distension. LUNGS: Lungs are clear to auscultation and percussion. Breath sounds decreased. HEART: Rate and Rhythm are regular. First and second heart sounds normal. No murmurs, rubs or gallops. ABDOMEN: Abdominal exam reveals normal bowel sounds. Non-tender and non- distended. No evidence of peritonitis. EXTREMITITES: No clubbing, cyanosis, or edema. Objective - Vital Signs Vital signs: Vital Signs Temp 97.1 F L 05/29/17 08:10 Pulse 90 05/29/17 10:10 Resp 18 05/29/17 10:10 BP 122/69 05/29/17 08:10 Pulse Ox 94 L 05/29/17 10:10 Intake & Output 05/28/17 05/29/17 05/29/17 18:59 06:59 18:59 Intake Total 960 720 Output Total 400 Balance 560 720 Weight 91.9 kg 91.9 kg Intake: Oral 960 720 Output: Urine 400 Other: Voiding Method Urinal Toilet Toilet Urinal Urinal # Voids 1 6 - Labs CBC & Chem 7: 05/29/17 07:12 05/29/17 07:12 Labs: Abnormal Lab Results - Last 24 Hours (Table) 05/28/17 05/28/17 05/28/17 Range/Units 12:03 17:35 20:37 RBC (4.30-5.90) m/uL Hgb (13.0-17.5) gm/dL Hct (39.0-53.0) % Chloride (98-107) mmol/L BUN (9-20) mg/dL Creatinine (0.66-1.25) mg/dL Glucose (74-99) mg/dL POC Glucose (mg/dL) 143 H 132 H 204 H (75-99) mg/dL 05/29/17 05/29/17 05/29/17 Range/Units 07:12 07:12 08:09 RBC 2.79 L (4.30-5.90) m/uL Hgb 8.0 L (13.0-17.5) gm/dL Hct 25.1 L (39.0-53.0) % Chloride 108 H (98-107) mmol/L BUN 61 H (9-20) mg/dL Creatinine 1.78 H (0.66-1.25) mg/dL Glucose 128 H (74-99) mg/dL POC Glucose (mg/dL) 154 H (75-99) mg/dL Microbiology - Last 24 Hours (Table) 05/24/17 14:45 Blood Culture - Preliminary Blood No Growth after 96 hours Assessment and Plan Plan: Assessment: #1. Nonoliguric acute kidney injury mostly prerenal secondary to hemodynamic instability and further worsened with the use of lisinopril. Creatinine was 2.7 on admission and did come down to 1.5 on May 27 - 1.78 today. No evidence of hydronephrosis noted on renal ultrasound. No proteinuria on urinalysis. #2. Rule out chronic kidney disease. Unclear as to what his baseline kidney function is. Per the record his creatinine was 1.56 and 2012. Etiology is likely nephrosclerosis. #3. Bradycardia as outpatient. No evidence during this admission. Cardiology following. Seems to have resolved. #4. Dyspnea due to COPD exacerbation. #5. Hyperkalemia secondary to acute kidney injury and further worsened with the use of lisinopril. Metabolic acidosis also a contributing factor. Improved with medical management. #6. Metabolic acidosis secondary to acute kidney injury. Improved. #7. Anemia of chronic kidney disease. Iron replete. Maintained on Aranesp. GI recommendations pending. Plan: Encouraged oral intake. Avoid nephrotoxic agents and hypotensive episodes - lisinopril currently held. Repeat electrolytes in the morning.
--- NOTE | 2017-05-29 10:45 | P.CONS ---
History of Present Illness - Reason for Consult Consult date: 05/28/17 Anemia and black stools. - History of Present Illness The patient is an 87-year-old male who was admitted to the hospital because of symptomatic bradycardia and is managed for exacerbation of COPD. History of hemoglobin on admission was around 11 and states stable at 9-9.2 for the first few days of his hospitalization then dropped to 8.2 and was noted to have black stools. We are asked to see him for anemia and black stools and suspected GI bleeding. His anemia is the normochromic normocytic. He denied any dysphagia, odynophagia hematemesis or hematochezia. No abdominal pains or recent change in his bowels. His daughter was at the bedside during my visit and apparently she has discussed with him whether he should have upper endoscopy and colonoscopy which, apparently, he has not had in the past. The patient is not certain if at this age he should have anything down. Review of Systems 14 point review of systems, is otherwise, not revealing except as per present illness. 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 History of Any Multi-Drug Resistant Organisms: None Reported Past Surgical History: Appendectomy, Cholecystectomy Additional Past Surgical History / Comment(s): Bilateral cataract surgery, carpal tunnel release bilaterally, left ankle ORIF, left hip replacement, left knee replacement 2, right knee replacement, exploratory laparotomy, appendectomy, cholecystectomy Smoking Status: Former smoker - Past Family History Father Family Medical History: No Reported History Mother Family Medical History: No Reported History Medications and Allergies Home Medications Medication Instructions Recorded Confirmed Type Aspirin [Adult Low Dose Aspirin EC] 81 mg PO HS 05/24/17 05/24/17 History Atenolol [Tenormin] 25 mg PO HS 05/24/17 05/24/17 History Cholecalciferol (Vitamin D3) 2,000 unit PO HS 05/24/17 05/24/17 History [Vitamin D3] Fenofibrate Nanocrystallized 72.5 mg PO HS 05/24/17 05/24/17 History [Tricor] Fluticasone/Salmeterol [Advair 1 inhalation PO DAILY 05/24/17 05/24/17 History 250-50 Diskus] Lisinopril [Zestril] 2.5 mg PO HS 05/24/17 05/24/17 History Pravastatin Sodium [Pravachol] 80 mg PO HS 05/24/17 05/24/17 History Allergies Allergy/AdvReac Type Severity Reaction Status Date / Time atorvastatin [From Lipitor] AdvReac Unknown Verified 05/24/17 16:10 simvastatin [From Zocor] AdvReac Unknown Verified 05/24/17 16:10 Physical Exam Vitals: Vital Signs Temp Pulse Pulse Pulse Pulse Pulse Resp 05/28/17 17:00 97.5 F L 87 16 05/28/17 16:29 108 H 88 05/28/17 16:00 80 14 05/28/17 15:21 82 05/28/17 15:11 80 05/28/17 14:34 98.0 F 80 14 05/28/17 10:54 80 05/28/17 10:44 79 05/28/17 09:00 05/28/17 08:00 97.5 F L 98 21 05/28/17 07:29 92 05/28/17 07:19 88 05/28/17 06:00 72 18 05/28/17 04:00 98.7 F 77 18 05/28/17 00:00 98.9 F 89 24 05/27/17 20:00 98.8 F 104 H 22 05/27/17 19:47 110 H BP BP Pulse Ox Pulse Ox Pulse Ox 05/28/17 17:00 118/65 94 L 05/28/17 16:29 90 L 96 05/28/17 16:00 05/28/17 15:21 05/28/17 15:11 05/28/17 14:34 106/52 92 L 05/28/17 10:54 05/28/17 10:44 05/28/17 09:00 92 L 05/28/17 08:00 117/65 95 05/28/17 07:29 05/28/17 07:19 05/28/17 06:00 98 05/28/17 04:00 138/72 97 05/28/17 00:00 118/78 98 05/27/17 20:00 118/58 99 05/27/17 19:47 Intake and Output 05/28/17 05/28/17 05/28/17 06:59 14:59 22:59 Intake Total 400 960 Output Total 400 Balance 400 -400 960 Intake: IV 300 Sodium Chloride 0.9% 1, 300 000 ml @ 100 mls/hr IV . Q10H [facility] Rx#:[id number] Intake, IV Titration 100 Amount Sodium Chloride 0.9% 1, 100 000 ml @ 60 mls/hr IV . [id number] [facility] Rx#:[id number] Oral 960 Output: Urine 400 Other: Voiding Method Urinal Urinal # Voids 1 1 Weight 91.9 kg 91.9 kg General: Appeared stated age, very pleasant in no acute distress Head and neck: Normocephalic atraumatic, conjunctivae pink and sclerae not icteric, mucous membranes moist and pink. No masses in the neck or tracheal shifts Lungs: End-expiratory rhonchi, no bronchial breathing. No dullness to percussion Heart: No abnormal sounds, murmurs, gallops or friction rubs Abdomen: Soft no masses or organomegalies. No tenderness, bowel sounds present Extremities: No clubbing, cyanosis or edema Neurologic: Alert, cranial nerves grossly intact, no gross sensory or motor abnormalities Results CBC & Chem 7: 05/29/17 07:12 05/29/17 07:12 Labs: Abnormal Lab Results - Last 24 Hours (Table) 05/27/17 05/27/17 05/27/17 Range/Units 19:58 20:50 23:37 WBC 12.8 H 10.9 H (3.8-10.6) k/uL RBC 3.09 L 2.91 L (4.30-5.90) m/uL Hgb 9.0 L 8.3 L (13.0-17.5) gm/dL Hct 27.8 L 26.0 L (39.0-53.0) % Retic Count (0.5-2.0) % Chloride (98-107) mmol/L BUN (9-20) mg/dL Creatinine (0.66-1.25) mg/dL Glucose (74-99) mg/dL POC Glucose (mg/dL) 187 H (75-99) mg/dL Phosphorus (2.5-4.5) mg/dL 05/28/17 05/28/17 05/28/17 Range/Units 04:58 04:58 07:26 WBC (3.8-10.6) k/uL RBC 2.85 L (4.30-5.90) m/uL Hgb 8.2 L (13.0-17.5) gm/dL Hct 25.5 L (39.0-53.0) % Retic Count 2.1 H (0.5-2.0) % Chloride 109 H (98-107) mmol/L BUN 77 H (9-20) mg/dL Creatinine 1.70 H (0.66-1.25) mg/dL Glucose 136 H (74-99) mg/dL POC Glucose (mg/dL) 137 H (75-99) mg/dL Phosphorus 1.8 L (2.5-4.5) mg/dL 05/28/17 05/28/17 Range/Units 12:03 17:35 WBC (3.8-10.6) k/uL RBC (4.30-5.90) m/uL Hgb (13.0-17.5) gm/dL Hct (39.0-53.0) % Retic Count (0.5-2.0) % Chloride (98-107) mmol/L BUN (9-20) mg/dL Creatinine (0.66-1.25) mg/dL Glucose (74-99) mg/dL POC Glucose (mg/dL) 143 H 132 H (75-99) mg/dL Phosphorus (2.5-4.5) mg/dL Microbiology - Last 24 Hours (Table) 05/24/17 14:45 Blood Culture - Preliminary Blood No Growth after 96 hours Assessment and Plan Assessment: Normocytic, normochromic anemia and black stools likely on the basis of anemia of chronic disease with superimposed element of GI bleeding. Gastritis, esophagitis or peptic ulcer disease is a possibility. At this age, malignancy to be kept in mind. The patient had no prior GI endoscopic workup. Plan: Agree with your current management. The patient is not eager to have any endoscopic studies performed despite the encouragement by his daughter. If he continues to be stable and does not drop his hemoglobin further, we will continue to manage for gastritis/possible peptic ulcer disease. Certainly, if he continues to drop his hemoglobin and manifest signs of ongoing GI bleeding, I would revisit the question of endoscopic studies for endoscopic intervention. I will discuss with you and with pulmonology and continue to follow with interest.
[2017-05-29 11:42] LABS: Glucose,Whole Blood 164 mg/dL (75-99)
--- NOTE | 2017-05-29 16:36 | P.PN ---
Subjective Progress Note Date: 05/29/17 Mr. Holden is a 87-year-old white male patient of Dr. Brewer in [place], who presented to the emergency department on 05/24/2017 at 1415 per EMS for evaluation of his bradycardia. Patient was seen in the urgent care clinic for his increasing symptoms of chest congestion or shortness of breath over the past 2 weeks, was found to be bradycardic and was sent in for further evaluation and treatment. He stated 2 weeks ago he started feeling progressively weak, short of breath, felt like he was getting the flu, however denied any fever or chills. Does not see a lung specialist, but was told that he has COPD, not on any oxygen, is never seen a lung specialist in the past. He carries a 42-wjak-ginh smoking history, as have a history of service , was in the [employer] in the [employer]. He quit smoking a while ago. His maintenance inhaler is Advair 250/50, and patient has a nebulizer machine at home. Patient's heart rate was in the 40s at the urgent care clinic, twelve- lead EKG completed in the emergency room showed sinus rhythm with left bundle branch block, and frequent PVCs with a rate of 65 BPM. Patient is afebrile, her dynamically stable, pulse ox in the 97-98% on room air. He denied any chest pain, denied any nausea or vomiting. Denied any headache, fever or chills. Lab work showed WBC of 8.7, hemoglobin 13.6, no evidence of coagulopathy, serum potassium is 5.6, B1 is 81, creatinine 2.70, carbon dioxide was 19. Lactic acid was 1.0, liver enzymes were all within normal limits, troponins were negative 3, proBNP on to be within normal limits at 1180, influenza screen was negative. Chest x-ray showed increased AP diameter and relative flattening of the diaphragms suggestive of underlying COPD, no acute cardiopulmonary process. Vision was given 2 L of IV bolus 0.9 normal saline, IV 0.9 normal saline is infusing at 100 ML per hour. Patient was given 1 dose of Kayexalate 30 g, he was given 1 amp of sodium bicarbonate, D50, calcium gluconate, and 10 units of regular insulin. Patient is voiding, on today's blood work potassium is 5.2, chloride is 108, carbon dioxide is 19, BUN is down to 73, creatinine is down to 2.30. Nephrology has been consulted. A blood gas treated in the emergency room shows a be a pO2 of 94, pCO2 37, pH of 7.33, this was done on FiO2 of 28%, and is consistent with metabolic acidosis related to acute renal failure. Ultrasound of the kidneys with no hydronephrosis. Repeat chest x-ray showed stable exam no acute abnormality. Patient was seen in consultation by cardiology, 2-D echocardiogram ordered. She was started on doxycycline, nebulized bronchodilators, Symbicort, IV Solu-Medrol, and today's exam patient is feeling better, less dyspneic. On 2 L per nasal cannula, with O2 sat 95%. Still has a congested cough, producing small amount of yellow sputum. Afebrile, hemodynamically stable. Does become a bit dyspneic with exertion. Denies any chest pain, denies any hemoptysis. On today's evaluation of 05/26/2017 the patient is awake and alert and the patient is sitting up on a chair without any major respiratory difficulties. His cardiac rhythm is sinus. The patient has been doing well without any chest pain and shortness of breath is also improving. He is on IV fluids. His renal function is also improving and creatinine is down to 1.7. No fever. No chills. No altered mentation. No other significant events over the past 24 hours. The patient is quite stable for now. Note that his hyperkalemia is also recovered and the patient seems to have no significant arrhythmias at this point in time. The echocardiogram was also done that showed a ejection fraction of 665%. No other significant valvular abnormalities noted. Cardiac The Case. From the Pulmonary Standpoint, the Patient Is Improving. We'll Suggest Continuing the Bronchodilators and Steroids Follow 24 Hours and Will Start Tapering the Steroids As of Tomorrow. On 05/27/2017 patient seen in follow-up in intensive care, he is still awaiting a bed on the stepdown monitored bed. Continues to improve, his today's the first day when he is able to take a deep breath. Lung sounds are diminished, patient still has a congested cough, is not bringing up any sputum. Still on 3 L per nasal cannula with O2 sat 97%. Vital signs are stable, patient is afebrile. Today's chest x-ray as been reviewed, and shows no evidence of acute pulmonary process. Patient has been treated with IV steroids, bronchodilators, and antibiotics his acute COPD with tracheobronchitis. Sinus rhythm with left bundle branch block on the monitor, with a heart rate at 72-86 BPM, with PACs. Today's lab work has been reviewed, WBC is within normal limits at 8.2, hemoglobin of 11.0, potassium is 4.4, chloride is 109, BUN is 40, and creatinine is 1.50, his renal profile continues to improve. He is tolerating oral intake, and is nonoliguric. His activity as tolerated, we will start tapering down the IV steroids, wean FiO2. On 05/28/2017 patient seen in follow-up, still awaiting a bed on the regular medical surgical floor. He continues to improve, denies any worsening dyspnea, less signs are stable, no further arrhythmias, no bradycardia. Afebrile, his been up in the lung to the bathroom, tolerating activity well. Continue weaning FiO2, patient does not wear oxygen at his baseline. On room air, with O2 sat at 92%. Respirations are even and nonlabored, lung sounds positive for a few minimal rhonchi. Continue current medical treatment. On 05/29/2017, I'm seeing this patient for a follow-up. Patient has no specific complaints. No significant shortness of breath. No cough or sputum production. He is resting comfortably in bed. He is on IV Solu Medrol 40 mg every 8 hours. He is also on DuoNeb neb last treatment [id number] and Symbicort as maintenance. The patient is covered with doxycycline as an empiric antibiotic coverage. The patient has a stable hemoglobin 8.0 and no other significant events have been noted overnight. No further episodes of GI bleeding. Objective - Vital Signs Vital signs: Vital Signs Temp 97.5 F L 05/29/17 13:53 Pulse 88 05/29/17 13:53 Resp 18 05/29/17 13:53 BP 108/67 05/29/17 13:53 Pulse Ox 94 L 05/29/17 13:53 Intake & Output 05/28/17 05/29/17 05/29/17 18:59 06:59 18:59 Intake Total 960 1560 Output Total 400 Balance 560 1560 Weight 91.9 kg 91.9 kg Intake: Oral 960 1560 Output: Urine 400 Other: Voiding Method Urinal Toilet Toilet Urinal Urinal # Voids 1 6 4 - Exam - Exam GENERAL EXAM: Alert, pleasant 87-year-old white male comfortable in no apparent distress. HEAD: Normocephalic/atraumatic. EYES: Normal reaction of pupils, equal size. Conjunctiva pink, sclera white. NOSE: Clear with pink turbinates. THROAT: No erythema or exudates. NECK: No masses, no JVD, no thyroid enlargement, no adenopathy. CHEST: No chest wall deformity. Symmetrical expansion. LUNGS: Diminished breath sounds bilaterally, no wheezes, no rhonchi, no rales CVS: Regular rate and rhythm, normal S1 and S2, no gallops, no murmurs, no rubs. Patient remains in sinus rhythm with left bundle branch block ABDOMEN: Soft, nontender. No hepatosplenomegaly, normal bowel sounds, no guarding or rigidity. EXTREMITIES: No clubbing, no edema, no cyanosis, 2+ pulses and upper and lower extremities. MUSCULOSKELETAL: Muscle strength and tone normal. SPINE: No scoliosis or deformity SKIN: No rashes CENTRAL NERVOUS SYSTEM: Alert and oriented -3. No focal deficits, tone is normal in all 4 extremities. PSYCHIATRIC: Alert and oriented -3. Appropriate affect. Intact judgment and insight. - Labs CBC & Chem 7: 05/29/17 07:12 05/29/17 07:12 Labs: Abnormal Lab Results - Last 24 Hours (Table) 05/28/17 05/28/17 05/29/17 Range/Units 17:35 20:37 07:12 RBC (4.30-5.90) m/uL Hgb (13.0-17.5) gm/dL Hct (39.0-53.0) % Chloride 108 H (98-107) mmol/L BUN 61 H (9-20) mg/dL Creatinine 1.78 H (0.66-1.25) mg/dL Glucose 128 H (74-99) mg/dL POC Glucose (mg/dL) 132 H 204 H (75-99) mg/dL 05/29/17 05/29/17 05/29/17 Range/Units 07:12 08:09 11:40 RBC 2.79 L (4.30-5.90) m/uL Hgb 8.0 L (13.0-17.5) gm/dL Hct 25.1 L (39.0-53.0) % Chloride (98-107) mmol/L BUN (9-20) mg/dL Creatinine (0.66-1.25) mg/dL Glucose (74-99) mg/dL POC Glucose (mg/dL) 154 H 164 H (75-99) mg/dL Microbiology - Last 24 Hours (Table) 05/24/17 14:45 Blood Culture - Preliminary Blood No Growth after 96 hours Assessment and Plan Plan: #1. Acute exacerbation of COPD , and this patient is improving #2. Bradycardia, recovered and the patient's rhythm is back to normal #3. Acute on chronic renal failure, baseline GFR is unknown. The baseline creatinine is felt to be around 1.5. The patient responded to IV fluids and creatinine is down to 1.7 #4. Hyperkalemia, secondary to acute on chronic renal failure, recovered #5. Metabolic acidosis, recovered #6. Normocytic normochromic anemia, stable with a hemoglobin of 8.0 #7. COPD, severity of which is unknown at this time #8. Nicotine dependence, currently in remission, patient carries a 30-pack- year smoking history. Patient has a history of service [employer] #9. Abdominal aortic aneurysm #10. Hypertension, dyslipidemia Plan This continued IV Solu Medrol and put the patient a prednisone burst taper. Continue the blood sugars from the clock. The renal function is stable and avoid any nephrotoxic agents. Lisinopril is still on hold. Patient's creatinine at baseline is probably around 1.7 and this is his baseline. 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 GI consultation was done and the patient is not eager to have any further endoscopic studies for now.
[2017-05-29 17:51] LABS: Glucose,Whole Blood 183 mg/dL (75-99)
[2017-05-29 20:19] LABS: Glucose,Whole Blood 152 mg/dL (75-99)
[2017-05-29] MEDS: ASPIRIN 81 MG PO SCH (21:28)
[2017-05-29] MEDS: PRAVASTATIN SODIUM 80 MG TAB PO SCH (21:28)
[2017-05-30] MEDS: SYMBICORT 80-4.5 MCG INHALER INHALATION SCH (07:15)
[2017-05-30] MEDS: IPRATROPIUM-ALBUTEROL 3 ML NEB INHALATION SCH ×4 (07:15→19:33)
[2017-05-30 07:43] LABS: Glucose,Whole Blood 116 mg/dL (75-99)
[2017-05-30 08:06] LABS: Calcium 8.9 mg/dL (8.4-10.2)
[2017-05-30] MEDS: INSULIN ASPART 100 UNIT/ML 1 ML 10 ML VIAL SQ SCH ×4 (08:15→21:52)
[2017-05-30 08:22] LABS: Potassium 4.2 mmol/L (3.5-5.1)
[2017-05-30] MEDS: DOXYCYCLINE 50 MG CAP PO SCH ×2 (08:33→21:51)
[2017-05-30] MEDS: ATENOLOL 12.5 MG TAB PO SCH (08:33)
[2017-05-30] MEDS: predniSONE 10 MG TAB PO SCH (08:34)
[2017-05-30] MEDS: PANTOPRAZOLE 40 MG TABLET PO SCH ×2 (08:34→17:38)
--- NOTE | 2017-05-30 09:10 | P.PN ---
Subjective Progress Note Date: 05/30/17 Principal diagnosis: shortness of breath and black stool No bowel movements last night, no shortness of breath, fever Objective - Vital Signs Vital signs: Vital Signs Temp 98 F 05/30/17 06:48 Pulse 80 05/30/17 07:30 Resp 17 05/30/17 06:48 BP 109/53 05/30/17 06:48 Pulse Ox 92 L 05/30/17 06:48 Intake & Output 05/29/17 05/30/17 05/30/17 18:59 06:59 18:59 Intake Total 1560 Balance 1560 Weight 89 kg Intake: Oral 1560 Other: Voiding Method Toilet Toilet Urinal Urinal # Voids 4 1 - Exam gen:alert and oriented lungs:clear to auscultation heart:s1s2 abdomen:soft and depressible,non tender ext:no edema - Labs CBC & Chem 7: 05/29/17 07:12 05/30/17 07:06 Labs: Abnormal Lab Results - Last 24 Hours (Table) 05/29/17 05/29/17 05/29/17 Range/Units 11:40 17:48 20:17 BUN (9-20) mg/dL Creatinine (0.66-1.25) mg/dL Glucose (74-99) mg/dL POC Glucose (mg/dL) 164 H 183 H 152 H (75-99) mg/dL 05/30/17 05/30/17 Range/Units 07:06 07:40 BUN 51 H (9-20) mg/dL Creatinine 1.70 H (0.66-1.25) mg/dL Glucose 109 H (74-99) mg/dL POC Glucose (mg/dL) 116 H (75-99) mg/dL Microbiology - Last 24 Hours (Table) 05/24/17 14:45 Blood Culture - Preliminary Blood No Growth after 120 hours Assessment and Plan (1) Acute exacerbation of chronic obstructive airways disease Narrative/Plan: Improvement currently on prednisone taper Current Visit: Yes Status: Acute Code(s): J44.1 - CHRONIC OBSTRUCTIVE PULMONARY DISEASE W (ACUTE) EXACERBATION SNOMED Code(s): 250221086 (2) Gastrointestinal bleed Narrative/Plan: Today patient says he is 87 years old and he does not think that he wants to go through colonoscopy at this time. He said he would talk with his family and let them know what his wishes are Current Visit: Yes Status: Acute Code(s): K92.2 - GASTROINTESTINAL HEMORRHAGE, UNSPECIFIED SNOMED Code(s): 63594808 (3) Blood loss anemia Narrative/Plan: Hemoglobin is pending this morning Current Visit: Yes Status: Acute Code(s): D50.0 - IRON DEFICIENCY ANEMIA SECONDARY TO BLOOD LOSS (CHRONIC) SNOMED Code(s): 206455522 (4) Acute kidney injury Current Visit: Yes Status: Acute Code(s): N17.9 - ACUTE KIDNEY FAILURE, UNSPECIFIED SNOMED Code(s): 69683720 (5) Hyperkalemia Current Visit: Yes Status: Acute Code(s): E87.5 - HYPERKALEMIA SNOMED Code (s): 46626658
--- NOTE | 2017-05-30 09:27 | P.PN ---
Subjective Patient is seen in follow-up for acute kidney injury. Renal function is stable with creatinine at 1.7 today. Unclear as to what his baseline renal function is. According to the records his creatinine was 1.56 in 2012. No proteinuria noted on urinalysis. He was noted to have bradycardia as an outpatient which seems to have resolved. Currently sitting up in chair. Oral intake is good. He is nonoliguric. Hemodynamically stable. He was having black stools but had no episodes yesterday. Hemoglobin was 8.0 as of May 29. Vital signs are stable. General: The patient appeared well nourished and normally developed. HEENT: Head exam is unremarkable. Neck is without jugular venous distension. LUNGS: Lungs are clear to auscultation and percussion. Breath sounds decreased. HEART: Rate and Rhythm are regular. First and second heart sounds normal. No murmurs, rubs or gallops. ABDOMEN: Abdominal exam reveals normal bowel sounds. Non-tender and non- distended. No evidence of peritonitis. EXTREMITITES: No clubbing, cyanosis, or edema. Objective - Vital Signs Vital signs: Vital Signs Temp 98 F 05/30/17 06:48 Pulse 80 05/30/17 07:30 Resp 17 05/30/17 06:48 BP 109/53 05/30/17 06:48 Pulse Ox 92 L 05/30/17 06:48 Intake & Output 05/29/17 05/30/17 05/30/17 18:59 06:59 18:59 Intake Total 1560 Balance 1560 Weight 89 kg Intake: Oral 1560 Other: Voiding Method Toilet Toilet Urinal Urinal # Voids 4 1 - Labs CBC & Chem 7: 05/29/17 07:12 05/30/17 07:06 Labs: Abnormal Lab Results - Last 24 Hours (Table) 05/29/17 05/29/17 05/29/17 Range/Units 11:40 17:48 20:17 BUN (9-20) mg/dL Creatinine (0.66-1.25) mg/dL Glucose (74-99) mg/dL POC Glucose (mg/dL) 164 H 183 H 152 H (75-99) mg/dL 05/30/17 05/30/17 Range/Units 07:06 07:40 BUN 51 H (9-20) mg/dL Creatinine 1.70 H (0.66-1.25) mg/dL Glucose 109 H (74-99) mg/dL POC Glucose (mg/dL) 116 H (75-99) mg/dL Microbiology - Last 24 Hours (Table) 05/24/17 14:45 Blood Culture - Preliminary Blood No Growth after 120 hours Assessment and Plan Plan: Assessment: #1. Nonoliguric acute kidney injury mostly prerenal secondary to hemodynamic instability and further worsened with the use of lisinopril. Creatinine was 2.7 on admission and did come down to 1.5 on May 27 - 1.7 today. No evidence of hydronephrosis noted on renal ultrasound. No proteinuria on urinalysis. #2. Rule out chronic kidney disease. Unclear as to what his baseline kidney function is. Per the record his creatinine was 1.56 and 2012. Etiology is likely nephrosclerosis. #3. Bradycardia as outpatient. No evidence during this admission. Cardiology following. Seems to have resolved. #4. Dyspnea due to COPD exacerbation. #5. Hyperkalemia secondary to acute kidney injury and further worsened with the use of lisinopril. Metabolic acidosis also a contributing factor. Improved with medical management. #6. Metabolic acidosis secondary to acute kidney injury. Improved. #7. Anemia of chronic kidney disease. Iron replete. Maintained on Aranesp. GI following. Patient hesitant to proceed with endoscopy. Plan: Encouraged oral intake. Avoid nephrotoxic agents and hypotensive episodes - lisinopril currently held. Repeat electrolytes in the morning.
[2017-05-30 10:43] LABS: HCT 23.9 % (39.0-53.0); HGB 7.7 gm/dL (13.0-17.5); MCH 28.9 pg (25.0-35.0); MCV 90.5 fL (80.0-100.0); Mean Platelet Volume 8.2; Platelet Count 228 k/uL (150-450); RBC 2.64 m/uL (4.30-5.90); WBC 9.7 k/uL (3.8-10.6)
[2017-05-30 11:24] LABS: Glucose,Whole Blood 123 mg/dL (75-99)
[2017-05-30] MEDS: SODIUM CHLORIDE 0.9% 1,000 ML IV SCH (17:44)
[2017-05-30 17:49] LABS: Glucose,Whole Blood 174 mg/dL (75-99)
[2017-05-30 20:12] LABS: Glucose,Whole Blood 179 mg/dL (75-99)
[2017-05-30] MEDS: PRAVASTATIN SODIUM 80 MG TAB PO SCH (21:51)
[2017-05-30] MEDS: ASPIRIN 81 MG PO SCH (21:51)
[2017-05-31 07:21] LABS: Glucose,Whole Blood 113 mg/dL (75-99)
[2017-05-31 07:29] LABS: HGB 8.6 gm/dL (13.0-17.5); MCH 29.8 pg (25.0-35.0); MCV 90.4 fL (80.0-100.0); Mean Platelet Volume 8.3; Platelet Count 252 k/uL (150-450); RBC 2.87 m/uL (4.30-5.90); RDW 14.6 % (11.5-15.5); WBC 11.7 k/uL (3.8-10.6)
[2017-05-31] MEDS: IPRATROPIUM-ALBUTEROL 3 ML NEB INHALATION SCH ×4 (08:37→19:03)
[2017-05-31] MEDS: SYMBICORT 80-4.5 MCG INHALER INHALATION SCH (08:38)
[2017-05-31] MEDS: INSULIN ASPART 100 UNIT/ML 1 ML 10 ML VIAL SQ SCH ×4 (08:57→21:39)
[2017-05-31] MEDS: ATENOLOL 12.5 MG TAB PO SCH (08:59)
[2017-05-31] MEDS: DOXYCYCLINE 50 MG CAP PO SCH ×2 (08:59→21:38)
[2017-05-31] MEDS: PANTOPRAZOLE 40 MG TABLET PO SCH ×2 (08:59→18:04)
[2017-05-31] MEDS: predniSONE 10 MG TAB PO SCH (08:59)
--- NOTE | 2017-05-31 09:44 | P.PN ---
Subjective Patient is seen in follow-up for acute kidney injury. Renal function is a little worse with creatinine at 1.8 today. Unclear as to what his baseline renal function is. According to the records his creatinine was 1.56 in 2012. No proteinuria noted on urinalysis. He was noted to have bradycardia as an outpatient which seems to have resolved. Currently sitting up in chair. Oral intake is good. He is nonoliguric. Hemodynamically stable. He continues to have black stools. Hemoglobin is improved at 8.6. Vital signs are stable. General: The patient appeared well nourished and normally developed. HEENT: Head exam is unremarkable. Neck is without jugular venous distension. LUNGS: Lungs are clear to auscultation and percussion. Breath sounds decreased. HEART: Rate and Rhythm are regular. First and second heart sounds normal. No murmurs, rubs or gallops. ABDOMEN: Abdominal exam reveals normal bowel sounds. Non-tender and non- distended. No evidence of peritonitis. EXTREMITITES: No clubbing, cyanosis, or edema. Objective - Vital Signs Vital signs: Vital Signs Temp 97.8 F 05/31/17 07:37 Pulse 74 05/31/17 08:48 Resp 18 05/31/17 07:37 BP 126/87 05/31/17 07:37 Pulse Ox 93 L 05/31/17 07:37 Intake & Output 05/30/17 05/31/17 05/31/17 18:59 06:59 18:59 Intake Total 1660 Balance 1660 Weight 89 kg Intake: Oral 1660 Other: Voiding Method Toilet Toilet Urinal Urinal # Voids 1 1 # Bowel Movements 1 - Labs CBC & Chem 7: 05/31/17 06:59 05/31/17 06:59 Labs: Abnormal Lab Results - Last 24 Hours (Table) 05/30/17 05/30/17 05/30/17 Range/Units 07:06 11:21 17:41 WBC (3.8-10.6) k/uL RBC 2.64 L (4.30-5.90) m/uL Hgb 7.7 L (13.0-17.5) gm/dL Hct 23.9 L (39.0-53.0) % BUN (9-20) mg/dL Creatinine (0.66-1.25) mg/dL POC Glucose (mg/dL) 123 H 174 H (75-99) mg/dL 05/30/17 05/31/17 05/31/17 Range/Units 20:11 06:59 06:59 WBC 11.7 H (3.8-10.6) k/uL RBC 2.87 L (4.30-5.90) m/uL Hgb 8.6 L (13.0-17.5) gm/dL Hct 26.0 L (39.0-53.0) % BUN 49 H (9-20) mg/dL Creatinine 1.81 H (0.66-1.25) mg/dL POC Glucose (mg/dL) 179 H (75-99) mg/dL 05/31/17 Range/Units 07:18 WBC (3.8-10.6) k/uL RBC (4.30-5.90) m/uL Hgb (13.0-17.5) gm/dL Hct (39.0-53.0) % BUN (9-20) mg/dL Creatinine (0.66-1.25) mg/dL POC Glucose (mg/dL) 113 H (75-99) mg/dL Microbiology - Last 24 Hours (Table) 05/24/17 14:45 Blood Culture - Final Blood No Growth after 144 hours Assessment and Plan Plan: Assessment: #1. Nonoliguric acute kidney injury mostly prerenal secondary to hemodynamic instability and further worsened with the use of lisinopril. Creatinine was 2.7 on admission and did come down to 1.5 on May 27 - 1.8 today. No evidence of hydronephrosis noted on renal ultrasound. No proteinuria on urinalysis. #2. Rule out chronic kidney disease. Unclear as to what his baseline kidney function is. Per the record his creatinine was 1.56 and 2012. Etiology is nephrosclerosis. #3. Bradycardia as outpatient. No evidence during this admission. Cardiology following. Seems to have resolved. #4. Dyspnea due to COPD exacerbation. Improved. #5. Hyperkalemia secondary to acute kidney injury and further worsened with the use of lisinopril. Metabolic acidosis also a contributing factor. Improved with medical management. #6. Metabolic acidosis secondary to acute kidney injury. Resolved. #7. Anemia of chronic kidney disease. Iron replete. Maintained on Aranesp. GI following. Patient hesitant to proceed with endoscopy. #8. History of aortic aneurysm. Plan: Encouraged oral intake. Avoid nephrotoxic agents and hypotensive episodes - lisinopril currently held. Repeat electrolytes in the morning. Anticipate discharge soon. He will need to follow-up as an outpatient in the next 2 weeks. I advised him to monitor his blood pressure at home with goal blood pressure less than 130/80 in view of the aneurysm.
[2017-05-31 11:19] LABS: Glucose,Whole Blood 157 mg/dL (75-99)
--- NOTE | 2017-05-31 16:40 | P.PN ---
Subjective Progress Note Date: 05/31/17 Patient is hard of hearing, has no complaints today, reports he had 3 bowel movements that are no longer dark and tarry. No acute events overnight Objective - Vital Signs Vital signs: Vital Signs Temp 97.9 F 05/31/17 15:45 Pulse 85 05/31/17 15:45 Resp 18 05/31/17 15:45 BP 112/52 05/31/17 15:45 Pulse Ox 97 05/31/17 15:45 Intake & Output 05/30/17 05/31/17 05/31/17 18:59 06:59 18:59 Intake Total 1660 Balance 1660 Weight 89 kg Intake: Oral 1660 Other: Voiding Method Toilet Toilet Urinal Urinal # Voids 1 1 4 # Bowel Movements 1 - Exam Constitutional: No acute distress, conversant, pleasant Eyes: Anicteric sclerae, moist conjunctiva, no lid-lag, PERRLA ENMT: NC/AT,Oropharynx clear, no erythema, exudates Neck:Supple, FROM, no masses, or JVD, No carotid bruits; No thyromegaly Lungs: Diminished breath sounds mild expiratory wheezes and rhonchi, Clear to percussion, Normal respiratory effort, no accessory muscle use Cardiovascular: Heart regular in rate and rhythm, No murmurs, gallops, or rubs no peripheral edema Abdominal: Soft Nontender, nom distended, no guarding, no rebound or rigidity, Normoactive bowel sounds No hepatomegaly, No splenomegaly, No palpable mass No abdominal wall hernia noted Skin: Normal temperature, tone, texture, turgor, No induration No subcutaneous nodules, No rash, lesions, No ulcers Extremities:No digital cyanosis No clubbing, Pedal pulses intact and symmetrical Radial pulses intact and symmetrical Normal gait and station, No calf tenderness Psychiatric: Alert and oriented to person, place and time, Appropriate affect Intact judgement Neuro: Muscles Strength 5/5 in all 4 extremities, Sensation to light touch grossly present throughout, Cranial nerves II-XII grossly intact. No focal sensory deficits - Labs CBC & Chem 7: 05/31/17 06:59 05/31/17 06:59 Labs: Abnormal Lab Results - Last 24 Hours (Table) 05/30/17 05/30/17 05/31/17 Range/Units 17:41 20:11 06:59 WBC 11.7 H (3.8-10.6) k/uL RBC 2.87 L (4.30-5.90) m/uL Hgb 8.6 L (13.0-17.5) gm/dL Hct 26.0 L (39.0-53.0) % BUN (9-20) mg/dL Creatinine (0.66-1.25) mg/dL POC Glucose (mg/dL) 174 H 179 H (75-99) mg/dL 05/31/17 05/31/17 05/31/17 Range/Units 06:59 07:18 11:17 WBC (3.8-10.6) k/uL RBC (4.30-5.90) m/uL Hgb (13.0-17.5) gm/dL Hct (39.0-53.0) % BUN 49 H (9-20) mg/dL Creatinine 1.81 H (0.66-1.25) mg/dL POC Glucose (mg/dL) 113 H 157 H (75-99) mg/dL Microbiology - Last 24 Hours (Table) 05/24/17 14:45 Blood Culture - Final Blood No Growth after 144 hours Assessment and Plan (1) Acute exacerbation of chronic obstructive airways disease Narrative/Plan: * Patient with stable disease Current Visit: Yes Status: Resolved Code(s): J44.1 - CHRONIC OBSTRUCTIVE PULMONARY DISEASE W (ACUTE) EXACERBATION SNOMED Code(s): 479735311 (2) Acute kidney injury superimposed on chronic kidney disease Narrative/Plan: * Creatinine trending up slightly to 1.8 * Nephrology following Current Visit: Yes Status: Acute Code(s): N17.9 - ACUTE KIDNEY FAILURE, UNSPECIFIED; N18.9 - CHRONIC KIDNEY DISEASE, UNSPECIFIED SNOMED Code(s): 39466010 (3) Blood loss anemia Narrative/Plan: * Hemoglobin stable 8.7 * Likely upper GI bleed however patient has been reluctant to proceed with upper endoscopy, and GI was consulted and recommends conservative management with PPI therapy for likely gastritis and peptic ulcer disease * Patient's stools are no longer black and tarry, plan to repeat his hemoglobin tomorrow and if it still stable he can be safely discharged home * Continue with PPI therapy Current Visit: Yes Status: Acute Code(s): D50.0 - IRON DEFICIENCY ANEMIA SECONDARY TO BLOOD LOSS (CHRONIC) SNOMED Code(s): 257434884 (4) Bradycardia Narrative/Plan: * Resolved patient has not had any documented bradycardia since admission Current Visit: Yes Status: Resolved Code(s): R00.1 - BRADYCARDIA, UNSPECIFIED SNOMED Code(s): 16222316
[2017-05-31 17:33] LABS: Glucose,Whole Blood 207 mg/dL (75-99)
[2017-05-31 20:07] LABS: Glucose,Whole Blood 196 mg/dL (75-99)
[2017-05-31] MEDS: ASPIRIN 81 MG PO SCH (21:39)
[2017-05-31] MEDS: PRAVASTATIN SODIUM 80 MG TAB PO SCH (21:39)
[2017-06-01 07:13] LABS: Glucose,Whole Blood 110 mg/dL (75-99)
[2017-06-01] MEDS: IPRATROPIUM-ALBUTEROL 3 ML NEB INHALATION SCH ×2 (08:00→11:30)
[2017-06-01] MEDS: SYMBICORT 80-4.5 MCG INHALER INHALATION SCH (08:01)
[2017-06-01 08:13] LABS: Calcium 8.4 mg/dL (8.4-10.2)
[2017-06-01 08:21] LABS: Basophils % (A) 0 %; Eosinophils # (A) 0.1 k/uL (0-0.7); Eosinophils % (A) 1 %; HCT 23.7 % (39.0-53.0); HGB 7.8 gm/dL (13.0-17.5); Lymphocytes # (A) 1.5 k/uL (1.0-4.8); Lymphocytes % (A) 15 %; MCH 29.6 pg (25.0-35.0); MCHC 32.7 g/dL (31.0-37.0); MCV 90.5 fL (80.0-100.0); Mean Platelet Volume 7.7; Monocytes # (A) 0.5 k/uL (0-1.0); Monocytes % (A) 5 %; Neutrophils # (A) 7.7 k/uL (1.3-7.7); Neutrophils % (A) 78 %; Platelet Count 224 k/uL (150-450); RBC 2.62 m/uL (4.30-5.90); RDW 15.4 % (11.5-15.5); WBC 9.9 k/uL (3.8-10.6)
[2017-06-01] MEDS: INSULIN ASPART 100 UNIT/ML 1 ML 10 ML VIAL SQ SCH ×2 (09:10→11:57)
[2017-06-01] MEDS: DOXYCYCLINE 50 MG CAP PO SCH (09:11)
[2017-06-01] MEDS: ATENOLOL 12.5 MG TAB PO SCH (09:11)
[2017-06-01] MEDS: predniSONE 10 MG TAB PO SCH (09:11)
[2017-06-01] MEDS: PANTOPRAZOLE 40 MG TABLET PO SCH (09:11)
[2017-06-01 09:30] VITALS: BP 110/71; TEMP 98
--- NOTE | 2017-06-01 10:32 | P.PN ---
Subjective Progress Note Date: 06/01/17 Principal diagnosis: melena GI bleed anemia Passing brown BM per patient and nursing. Denies abdominal pain. Requesting DC. HGB today 7.8. Objective - Vital Signs Vital signs: Vital Signs Temp 98.0 F 06/01/17 07:20 Pulse 82 06/01/17 08:15 Resp 18 06/01/17 07:20 BP 110/71 06/01/17 07:20 Pulse Ox 97 06/01/17 08:03 Intake & Output 05/31/17 06/01/17 06/01/17 18:59 06:59 18:59 Intake Total 1140 240 Balance 1140 240 Intake: Oral 1140 240 Other: Voiding Method Toilet Urinal # Voids 4 2 - Constitutional General appearance: Present: average body habitus - EENT Eyes: Present: normal appearance ENT: Present: normal oropharynx - Neck Neck: Present: normal ROM - Respiratory Respiratory: bilateral: diminished (slight) - Cardiovascular Rhythm: regular Heart sounds: normal: S1, S2 - Gastrointestinal Gastrointestinal Comment(s): nontender General gastrointestinal: Present: soft - Integumentary Integumentary: Present: normal turgor - Psychiatric Psychiatric: Present: A&O x's 3 - Labs CBC & Chem 7: 06/01/17 06:59 06/01/17 06:59 Labs: Abnormal Lab Results - Last 24 Hours (Table) 05/31/17 05/31/17 05/31/17 Range/Units 11:17 17:27 20:06 RBC (4.30-5.90) m/uL Hgb (13.0-17.5) gm/dL Hct (39.0-53.0) % BUN (9-20) mg/dL Creatinine (0.66-1.25) mg/dL POC Glucose (mg/dL) 157 H 207 H 196 H (75-99) mg/dL 06/01/17 06/01/17 06/01/17 Range/Units 06:59 06:59 07:11 RBC 2.62 L (4.30-5.90) m/uL Hgb 7.8 L (13.0-17.5) gm/dL Hct 23.7 L (39.0-53.0) % BUN 52 H (9-20) mg/dL Creatinine 1.78 H (0.66-1.25) mg/dL POC Glucose (mg/dL) 110 H (75-99) mg/dL Assessment and Plan (1) Gastrointestinal bleed Narrative/Plan: Reported melena possible peptic ulcer disease;presently on PPI passing nonbloody BMs. Current Visit: Yes Status: Acute Code(s): K92.2 - GASTROINTESTINAL HEMORRHAGE, UNSPECIFIED SNOMED Code(s): 97896308 (2) Blood loss anemia Current Visit: Yes Status: Acute Code(s): D50.0 - IRON DEFICIENCY ANEMIA SECONDARY TO BLOOD LOSS (CHRONIC) SNOMED Code(s): 970757936 (3) Acute exacerbation of chronic obstructive airways disease Current Visit: Yes Status: Resolved Code(s): J44.1 - CHRONIC OBSTRUCTIVE PULMONARY DISEASE W (ACUTE) EXACERBATION SNOMED Code(s): 413967323 Plan: 1. EGD was discussed again and at this time he is declining and is requesting DC. Recommend PPI daily x 2 weeks on DC and RTO/PCP 1 week with repeat CBC 3-5 days and reevlauation of PPI therapy. NO NSAIDS. Assesswment and plan of care discussed with Dr. Rhodes.
[2017-06-01 11:27] LABS: Glucose,Whole Blood 127 mg/dL (75-99)
[2017-06-01 11:33] VITALS: RESP 16
[2017-06-01 11:45] VITALS: PULSE 80
--- NOTE | 2017-06-01 11:50 | P.PN ---
Subjective Patient is seen in follow-up for acute kidney injury. Renal function is stable. Unclear as to what his baseline renal function is. According to the records his creatinine was 1.56 in 2012. No proteinuria noted on urinalysis. He was noted to have bradycardia as an outpatient which seems to have resolved. Currently sitting up in chair. Oral intake is good. He is nonoliguric. Hemodynamically stable. Did not have black stools yesterday. Hemoglobin is 7.8 today. Vital signs are stable. General: The patient appeared well nourished and normally developed. HEENT: Head exam is unremarkable. Neck is without jugular venous distension. LUNGS: Lungs are clear to auscultation and percussion. Breath sounds decreased. HEART: Rate and Rhythm are regular. First and second heart sounds normal. No murmurs, rubs or gallops. ABDOMEN: Abdominal exam reveals normal bowel sounds. Non-tender and non- distended. No evidence of peritonitis. EXTREMITITES: No clubbing, cyanosis, or edema. Objective - Vital Signs Vital signs: Vital Signs Temp 98.0 F 06/01/17 07:20 Pulse 80 06/01/17 11:44 Resp 16 06/01/17 11:44 BP 110/71 06/01/17 07:20 Pulse Ox 97 06/01/17 11:33 Intake & Output 05/31/17 06/01/17 06/01/17 18:59 06:59 18:59 Intake Total 1140 240 Balance 1140 240 Intake: Oral 1140 240 Other: Voiding Method Toilet Urinal # Voids 4 2 - Labs CBC & Chem 7: 06/01/17 06:59 06/01/17 06:59 Labs: Abnormal Lab Results - Last 24 Hours (Table) 05/31/17 05/31/17 06/01/17 Range/Units 17:27 20:06 06:59 RBC (4.30-5.90) m/uL Hgb (13.0-17.5) gm/dL Hct (39.0-53.0) % BUN 52 H (9-20) mg/dL Creatinine 1.78 H (0.66-1.25) mg/dL POC Glucose (mg/dL) 207 H 196 H (75-99) mg/dL 04/24/18 04/24/18 04/24/18 Range/Units 06:59 07:11 11:26 RBC 2.62 L (4.30-5.90) m/uL Hgb 7.8 L (13.0-17.5) gm/dL Hct 23.7 L (39.0-53.0) % BUN (9-20) mg/dL Creatinine (0.66-1.25) mg/dL POC Glucose (mg/dL) 110 H 127 H (75-99) mg/dL Assessment and Plan Plan: Assessment: #1. Nonoliguric acute kidney injury mostly prerenal secondary to hemodynamic instability and further worsened with the use of lisinopril. Creatinine was 2.7 on admission and did come down to 1.5 on May 27 - 1. today. No evidence of hydronephrosis noted on renal ultrasound. No proteinuria on urinalysis. #2. Rule out chronic kidney disease. Unclear as to what his baseline kidney function is. Per the record his creatinine was 1.56 and 2012. Etiology is nephrosclerosis. #3. Bradycardia as outpatient. No evidence during this admission. Cardiology following. Seems to have resolved. #4. Dyspnea due to COPD exacerbation. Improved. #5. Hyperkalemia secondary to acute kidney injury and further worsened with the use of lisinopril. Metabolic acidosis also a contributing factor. Improved with medical management. #6. Metabolic acidosis secondary to acute kidney injury. Resolved. #7. Anemia of chronic kidney disease. Iron replete. Maintained on Aranesp. GI following. Patient hesitant to proceed with endoscopy. #8. History of aortic aneurysm. Plan: Encouraged oral intake. Avoid nephrotoxic agents and hypotensive episodes - lisinopril currently held. Repeat electrolytes in the morning. Anticipate discharge soon. He will need to follow-up as an outpatient in the next 2 weeks. I advised him to monitor his blood pressure at home with goal blood pressure less than 130/80 in view of the aneurysm.
--- NOTE | 2017-06-01 12:17 | P.DS ---
Providers Date of admission: 05/24/17 17:08 Expected date of discharge: 06/01/17 Attending physician: Gloria Hoffmann DO Consults: 05/24/17 19:06 Consult Physician Routine Consulting Provider: Josh Pang Consult Reason/Comments: bradycardia Do you want consulting provider notified?: Already Contacted 05/24/17 19:07 Consult Physician Routine Consulting Provider: Sudheer Du Consult Reason/Comments: ICU admission, COPD Do you want consulting provider notified?: Already Contacted 05/24/17 19:09 Consult Physician Routine Consulting Provider: Benson Coker Consult Reason/Comments: ANICETO on CKD Do you want consulting provider notified?: Yes Primary care physician: [facility] - Discharge Diagnosis(es) (1) Acute exacerbation of chronic obstructive airways disease Current Visit: Yes Status: Resolved (2) Acute kidney injury superimposed on chronic kidney disease Current Visit: Yes Status: Acute (3) Blood loss anemia Current Visit: Yes Status: Acute (4) Bradycardia Current Visit: Yes Status: Resolved (5) Upper GI bleed Current Visit: Yes Status: Acute (6) Hyperkalemia Current Visit: Yes Status: Acute (7) Metabolic acidosis Current Visit: Yes Status: Acute Hospital Course: The patient is a 87-year-old male was admitted to [facility] after being referred here from urgent care where he reportedly had presented with symptomatic bradycardia and to onset left bundle branch block. The patient had an extensive evaluation and on presentation was also noted to be in acute kidney injury superimposed on chronic kidney disease stage 3 with a creatinine of 2.7 on presentation, hyperkalemia at 5.6 and metabolic acidosis. Patient was admitted to the ICU under close observation and cardiology was consulted, his initial and subsequent cardiac enzymes are negative for injection acute ischemia. The patient was seen by cardiology Dr. Pang reviewed the patient's EKG and determined that the patient had had a prior left bundle branch block noted on a previous EKG. Echocardiogram was consistent with ejection fraction of 60-65%. Of note the patient had no evidence of bradycardia throughout this hospitalization. The patient was also treated for an acute COPD exacerbation with systemic steroids, doxycycline and scheduling and when necessary bronchodilator breathing treatments. The patient was seen by nephrology Dr. Coker due to his acute kidney injury on chronic kidney disease, a renal ultrasound was ordered that showed no evidence of hydronephrosis, he thought that the acute kidney injury secondary to hemodynamic instability worsened by ongoing use of lisinopril to his blood pressure, lisinopril was held and the patient gradually returned to his baseline kidney function at 1.6-1.8 after receiving fluids. The patient did receive treatment for hyperkalemia with calcium gluconate, Kayexalate which gradually resolved after therapy. The patient was noted to have a acute blood loss anemia with his hemoglobin trending down From 13.6 on presentation to 7.8 on day of discharge. The patient was noted to have a positive Hemoccult and had been complaining of melanotic stools, GI Dr. Nazario was consulted to see the patient, however the patient was reluctant to proceed with any sort of endoscopic investigation. He was subsequently started on PPI therapy with Protonix due to concern for possible gastritis being the cause of his likely upper GI bleed. Patient was subsequently discharged home after his stools became normal without any evidence of melena and with his hemoglobin holding stable at 7.8. Plans are made for repeat CBC to be done by his home health team in 3 days. Prescriptions at discharge include Protonix 40 mg by mouth twice a day and Colace 100 mg by mouth twice a day when necessary constipation , and his lisinopril was discontinued. This discharge process took approximately 40 minutes. Patient Condition at Discharge: Stable Plan - Discharge Summary Discharge Rx Participant: Yes New Discharge Prescriptions: New Docusate [Colace] 100 mg PO BID PRN #60 cap PRN Reason: Constipation Pantoprazole [Protonix] 40 mg PO AC-BID #60 tablet. Continue Aspirin [Adult Low Dose Aspirin EC] 81 mg PO HS Atenolol [Tenormin] 25 mg PO HS Cholecalciferol (Vitamin D3) [Vitamin D3] 2,000 unit PO HS Fenofibrate Nanocrystallized [Tricor] 72.5 mg PO HS Fluticasone/Salmeterol [Advair 250-50 Diskus] 1 inhalation PO DAILY Lisinopril [Zestril] 2.5 mg PO HS Pravastatin Sodium [Pravachol] 80 mg PO HS Discharge Medication List Aspirin [Adult Low Dose Aspirin EC] 81 mg PO HS 05/24/17 [History] Atenolol [Tenormin] 25 mg PO HS 05/24/17 [History] Cholecalciferol (Vitamin D3) [Vitamin D3] 2,000 unit PO HS 05/24/17 [History] Fenofibrate Nanocrystallized [Tricor] 72.5 mg PO HS 05/24/17 [History] Fluticasone/Salmeterol [Advair 250-50 Diskus] 1 inhalation PO DAILY 05/24/17 [ History] Lisinopril [Zestril] 2.5 mg PO HS 05/24/17 [History] Pravastatin Sodium [Pravachol] 80 mg PO HS 05/24/17 [History] Docusate [Colace] 100 mg PO BID PRN #60 cap 06/01/17 [Rx] Pantoprazole [Protonix] 40 mg PO AC-BID #60 tablet. 06/01/17 [Rx] Follow up Appointment(s)/Referral(s): [facility], [NON-STAFF] - Bright Brewer MD [REFERRING] - 06/07/17 11:30 am Benson Coker DO [STAFF PHYSICIAN] - 2 Weeks Ambulatory/Diagnostic Orders: Complete Blood Count w/diff [LAB.AMB] Time Frame: 3 Days, Facility: [facility], Location: Laboratory Department Patient Instructions/Handouts: Laxative, Stool Softeners (By mouth), Pantoprazole (By mouth), Acute Kidney Injury (DC), COPD (Chronic Obstructive Pulmonary Disease) (DC), Hyperkalemia (DC) Discharge Disposition: HOME SELF-CARE
[2017-06-01] MEDS ORDERED: DOXYCYCLINE MONOHYDRATE 100 MG CAPSULE PO SCH (21:00)
== END 2017-06-01 13:50 | disposition home or self-care (01) | DRG 191 ==
LOC: EC 14:15 → SUPCPDRO 14:15 → 6SEL 17:08 → 6ICU 19:53 → 5MS5E 05-28 15:56
PROVIDERS: ADMIT Internal Medicine; ATTEND Internal Medicine
DX: J44.1 Chronic obstructive pulmonary disease with (acute) exacerbation (principal); N17.9 Acute kidney failure, unspecified; E87.2 Acidosis; E87.5 Hyperkalemia; D62 Acute posthemorrhagic anemia; K92.1 Melena; R00.1 Bradycardia, unspecified; J44.0 Chronic obstructive pulmonary disease with (acute) lower respiratory infection; I44.7 Left bundle-branch block, unspecified; Z66 Do not resuscitate; E66.9 Obesity, unspecified; J20.9 Acute bronchitis, unspecified; I71.4 Abdominal aortic aneurysm, without rupture; I12.9 Hypertensive chronic kidney disease with stage 1 through stage 4 chronic kidney disease, or unspecified chronic kidney disease; N18.3 Chronic kidney disease, stage 3 (moderate); E78.5 Hyperlipidemia, unspecified; Z96.653 Presence of artificial knee joint, bilateral; Z96.642 Presence of left artificial hip joint; D63.1 Anemia in chronic kidney disease; H91.90 Unspecified hearing loss, unspecified ear; F17.211 Nicotine dependence, cigarettes, in remission; K59.00 Constipation, unspecified; Z86.11 Personal history of tuberculosis; Z79.82 Long term (current) use of aspirin; Z79.51 Long term (current) use of inhaled steroids; Z79.899 Other long term (current) drug therapy; Z88.8 Allergy status to other drugs, medicaments and biological substances; Z90.49 Acquired absence of other specified parts of digestive tract; Z87.891 Personal history of nicotine dependence; Z68.29 Body mass index [BMI] 29.0-29.9, adult
CPT/HCPCS: 36415; 36600; 71045; 71046; 76770; 80048; 80053; 81001; 82272; 82550; 82553; 82728; 82805; 83036; 83540; 83550; 83605; 83735; 83880; 84100; 84439; 84443; 84484; 85025; 85027; 85045; 85610; 85730; 87040; 87324; 87502; 93005; 93306; 94640; 94760; 96361; 96374; 99285

== ENCOUNTER 2020-02-20 20:12 | Emergency (ER) | payer MEDICARE ==
[2020-02-20 20:19] VITALS: BP 126/64; PULSE 76; RESP 20; TEMP 98.5
[2020-02-20 20:58] LABS: Glucose,Whole Blood 88 mg/dL (75-99)
[2020-02-20 21:16] LABS: Basophils % (A) 1 %; Eosinophils # (A) 0.1 k/uL (0-0.7); Eosinophils % (A) 2 %; HCT 34.3 % (39.0-53.0); HGB 11.8 gm/dL (13.0-17.5); Lymphocytes # (A) 1.4 k/uL (1.0-4.8); Lymphocytes % (A) 26 %; MCH 30.8 pg (25.0-35.0); MCHC 34.3 g/dL (31.0-37.0); MCV 89.6 fL (80.0-100.0); Mean Platelet Volume 7.3; Monocytes # (A) 0.3 k/uL (0-1.0); Monocytes % (A) 6 %; Neutrophils # (A) 3.7 k/uL (1.3-7.7); Neutrophils % (A) 65 %; Platelet Count 214 k/uL (150-450); RBC 3.83 m/uL (4.30-5.90); RDW 13.9 % (11.5-15.5); WBC 5.6 k/uL (3.8-10.6)
[2020-02-20 21:17] LABS: Appearance,Urine Clear (Clear); Bilirubin,Urine Negative (Negative); Blood,Urine Negative (Negative); Color,Urine Yellow; Glucose,Urine (UA) Negative (Negative); Ketones,Urine Negative (Negative); Leukocyte Esterase,Urine Negative (Negative); Nitrite,Urine Negative (Negative); Protein,Urine Negative (Negative); Specific Gravity,Urine 1.016 (1.001-1.035); Urobilinogen,Urine <2.0 mg/dL (<2.0)
[2020-02-20 21:25] LABS: Partial Thromboplastin Time 24.6 sec (22.0-30.0); Prothrombin Time 10.5 sec (9.0-12.0)
[2020-02-20 21:26] LABS: Albumin 3.7 g/dL (3.5-5.0); Calcium 9.3 mg/dL (8.4-10.2); Potassium 4.6 mmol/L (3.5-5.1); Total Bilirubin 0.4 mg/dL (0.2-1.3); Total Protein 6.6 g/dL (6.3-8.2)
--- NOTE | 2020-02-20 21:28 | CT ---
EXAMINATION TYPE: CT brain wo con DATE OF EXAM: 02/20/2020 COMPARISON: 04/30/2009. HISTORY: Weakness and confusion CT DLP: 1044.4 mGycm Automated exposure control for dose reduction was used. FINDINGS: There is no acute intracranial hemorrhage, midline shift or hydrocephalus. No mass effect. There is age-related mild to moderate parenchymal volume loss. The white matter is grossly preserved. The paranasal sinuses and mastoid air cells are adequately aerated. Calvarium is intact. IMPRESSION: NO ACUTE INTRACRANIAL ABNORMALITY.
--- NOTE | 2020-02-20 21:32 | ED ---
Altered Mental Status HPI - General Chief Complaint: Altered Mental Status Stated Complaint: Confused Time Seen by Provider: 02/20/20 20:25 Source: patient, family Mode of arrival: ambulatory Limitations: no limitations - History of Present Illness Initial Comments: This 89-year-old white male presents with daughter with a complaint of some confusion. This apparently happened this afternoon and lasted for approximately 3 hours. It has subsequently resolved. During this episode, he could not remember where he was and was extremely confused regarding his surroundings. He is back to normal at this time per daughter. He has never had a previous s imilar episode. There is no other complaints such as fevers, chills, shortness of breath, abdominal pain, urinary frequency, urinary urgency, urinary dysuria, or hematuria. He apparently went out to the store today which is slightly more activity than normal for him and he was driving at that time. He did not have any other neurologic complaints. He is chronically hard of hearing but reads lips fine. No other complaints or modifying factors. The patient and family both deny any known history of chronic dementia but patient does relate that he is forgetful at times but nothing this severe previously. - Related Data Home Medications Medication Instructions Recorded Confirmed Aspirin [Adult Low Dose Aspirin EC] 81 mg PO HS 05/24/17 02/20/20 atenoloL [Tenormin] 12.5 mg PO HS 05/24/17 02/20/20 Cyanocobalamin (Vitamin B-12) 1,000 mcg PO HS 02/20/20 02/20/20 [Vitamin B-12] Pravastatin Sodium [Pravachol] 40 mg PO HS 02/20/20 02/20/20 lisinopriL [Zestril] 2.5 mg PO DIRECTED 02/20/20 02/20/20 Allergies Allergy/AdvReac Type Severity Reaction Status Date / Time atorvastatin [From Lipitor] AdvReac Unknown Verified 02/20/20 21:25 simvastatin [From Zocor] AdvReac Unknown Verified 02/20/20 21:25 Review of Systems ROS Statement: Those systems with pertinent positive or pertinent negative responses have been documented in the HPI. ROS Other: All systems not noted in ROS Statement are negative. 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 History of Any Multi-Drug Resistant Organisms: None Reported Past Surgical History: Appendectomy, Cholecystectomy Additional Past Surgical History / Comment(s): Bilateral cataract surgery, carpal tunnel release bilaterally, left ankle ORIF, left hip replacement, left knee replacement 2, right knee replacement, exploratory laparotomy, appendectomy, cholecystectomy Past Psychological History: No Psychological Hx Reported Smoking Status: Former smoker Past Alcohol Use History: None Reported Past Drug Use History: None Reported - Past Family History Father Family Medical History: No Reported History Mother Family Medical History: No Reported History General Exam - General Exam Comments Initial Comments: GENERAL: The patient is well nourished and well hydrated. VITAL SIGNS: Heart rate, blood pressure, respiratory rate reviewed as recorded in nurse's notes. EYES: Pupils are round and reactive. Extraocular movements are intact. No conjunctival / lid redness or swelling. ENT: No external evidence of injury, swelling, or ecchymosis. Airway is patent. Throat is clear. NECK: Nontender. No swelling or evidence of injury. No subcutaneous emphysema. Trachea is midline. No thyroid mass. HEART: Regular rate and rhythm. Good peripheral pulses. LUNGS/CHEST: Breath sounds clear and equal bilaterally. No rales, rhonchi, or wheezes. No ecchymosis, subcutaneous emphysema, or tenderness. ABDOMEN: Abdomen soft without tenderness. No palpable masses or organomegaly. No peritoneal signs. No abdominal wall swelling or ecchymosis. EXTREMITIES: No extremity tenderness. Normal muscle tone and function. No thoracolumbar tenderness. NEUROLOGIC: Sensation is grossly intact. Cranial nerve exam reveals face is symmetrical, tongue is midline, speech is clear. SKIN: No abrasions or ecchymosis is noted. No induration or masses noted. PSYCHIATRIC: Alert and oriented. Appropriate behavior and judgment. Limitations: no limitations Course Vital Signs 02/20/20 20:15 Temperature 98.5 F Pulse Rate 76 Respiratory 20 Rate Blood Pressure 126/64 O2 Sat by Pulse 97 Oximetry Medical Decision Making - Medical Decision Making The patient was seen and examined. All diagnostics were reviewed. The EKG shows evidence of a left bundle branch block with a normal sinus rhythm. The patient does have ST-T wave changes associated with the left bundle branch block. The DC intervals 162, QRS duration is 1:30, and the QTC intervals 451. The laboratory does show evidence of anemia with hemoglobin of 11.8 but this is much improved as compared to previous. He also has a degree of renal insufficiency which is stable. There is no evidence of urinary tract infection. He scan of the brain does not show any acute process. The actual cause of his confusion is not definitively determined. Head has been resolved since prior to entrance of the ER. His daughter is with him states that his back to his normal state at this time. It is felt as though he should monitor his symptoms and return if symptoms do worsen or recur. Close follow-up recommended. Return p arameters discussed in detail. - Lab Data Result diagrams: 02/20/20 20:58 02/20/20 20:58 Lab Results 02/20/20 02/20/20 02/20/20 Range/Units 20:56 20:58 20:58 WBC 5.6 (3.8-10.6) k/uL RBC 3.83 L (4.30-5.90) m/uL Hgb 11.8 L (13.0-17.5) gm/dL Hct 34.3 L (39.0-53.0) % MCV 89.6 (80.0-100.0) fL MCH 30.8 (25.0-35.0) pg MCHC 34.3 (31.0-37.0) g/dL RDW 13.9 (11.5-15.5) % Plt Count 214 (150-450) k/uL MPV 7.3 Neutrophils % 65 % Lymphocytes % 26 % Monocytes % 6 % Eosinophils % 2 % Basophils % 1 % Neutrophils # 3.7 (1.3-7.7) k/uL Lymphocytes # 1.4 (1.0-4.8) k/uL Monocytes # 0.3 (0-1.0) k/uL Eosinophils # 0.1 (0-0.7) k/uL Basophils # 0.0 (0-0.2) k/uL PT 10.5 (9.0-12.0) sec INR 1.0 (<1.2) APTT 24.6 (22.0-30.0) sec Sodium (137-145) mmol/L Potassium (3.5-5.1) mmol/L Chloride (98-107) mmol/L Carbon Dioxide (22-30) mmol/L Anion Gap mmol/L BUN (9-20) mg/dL Creatinine (0.66-1.25) mg/dL Est GFR (CKD-EPI)AfAm (>60 ml/min/1.73 sqM) Est GFR (CKD-EPI)NonAf (>60 ml/min/1.73 sqM) Glucose (74-99) mg/dL POC Glucose (mg/dL) 88 (75-99) mg/dL POC Glu Nuclear Physics Professor ID Melina Silver Calcium (8.4-10.2) mg/dL Total Bilirubin (0.2-1.3) mg/dL AST (17-59) U/L ALT (4-49) U/L Alkaline Phosphatase (38-126) U/L Ammonia (<30) umol/L Total Protein (6.3-8.2) g/dL Albumin (3.5-5.0) g/dL Urine Color Urine Appearance (Clear) Urine pH (5.0-8.0) Ur Specific [place] (1.001-1.035) Urine Protein (Negative) Urine Glucose (UA) (Negative) Urine Ketones (Negative) Urine Blood (Negative) Urine Nitrite (Negative) Urine Bilirubin (Negative) Urine Urobilinogen (<2.0) mg/dL Ur Leukocyte Esterase (Negative) 02/20/20 02/20/20 02/20/20 Range/Units 20:58 20:58 20:58 WBC (3.8-10.6) k/uL RBC (4.30-5.90) m/uL Hgb (13.0-17.5) gm/dL Hct (39.0-53.0) % MCV (80.0-100.0) fL MCH (25.0-35.0) pg MCHC (31.0-37.0) g/dL RDW (11.5-15.5) % Plt Count (150-450) k/uL MPV Neutrophils % % Lymphocytes % % Monocytes % % Eosinophils % % Basophils % % Neutrophils # (1.3-7.7) k/uL Lymphocytes # (1.0-4.8) k/uL Monocytes # (0-1.0) k/uL Eosinophils # (0-0.7) k/uL Basophils # (0-0.2) k/uL PT (9.0-12.0) sec INR (<1.2) APTT (22.0-30.0) sec Sodium 141 (137-145) mmol/L Potassium 4.6 (3.5-5.1) mmol/L Chloride 108 H (98-107) mmol/L Carbon Dioxide 28 (22-30) mmol/L Anion Gap 5 mmol/L BUN 25 H (9-20) mg/dL Creatinine 1.88 H (0.66-1.25) mg/dL Est GFR (CKD-EPI)AfAm 36 (>60 ml/min/1.73 sqM) Est GFR (CKD-EPI)NonAf 31 (>60 ml/min/1.73 sqM) Glucose 96 (74-99) mg/dL POC Glucose (mg/dL) (75-99) mg/dL POC Glu Nuclear Physics Professor ID Calcium 9.3 (8.4-10.2) mg/dL Total Bilirubin 0.4 (0.2-1.3) mg/dL AST 25 (17-59) U/L ALT 13 (4-49) U/L Alkaline Phosphatase 44 (38-126) U/L Ammonia <9 (<30) umol/L Total Protein 6.6 (6.3-8.2) g/dL Albumin 3.7 (3.5-5.0) g/dL Urine Color Yellow Urine Appearance Clear (Clear) Urine pH 6.0 (5.0-8.0) Ur Specific [place] 1.016 (1.001-1.035) Urine Protein Negative (Negative) Urine Glucose (UA) Negative (Negative) Urine Ketones Negative (Negative) Urine Blood Negative (Negative) Urine Nitrite Negative (Negative) Urine Bilirubin Negative (Negative) Urine Urobilinogen <2.0 (<2.0) mg/dL Ur Leukocyte Esterase Negative (Negative) Disposition Clinical Impression: Confusion, Anemia, Chronic renal disease, Advanced age Disposition: HOME SELF-CARE Condition: Good Instructions (If sedation given, give patient instructions): Altered Mental Status (ED) Is patient prescribed a controlled substance at d/c from ED?: No Referrals: Gualberto Avila MD [Primary Care Provider] - 1-2 days Time of Disposition: 22:42
== END 2020-02-20 23:10 | disposition home or self-care (01) ==
LOC: EC 20:12
DX: D64.9 Anemia, unspecified (principal); R41.0 Disorientation, unspecified; I12.9 Hypertensive chronic kidney disease with stage 1 through stage 4 chronic kidney disease, or unspecified chronic kidney disease; N18.9 Chronic kidney disease, unspecified; R54 Age-related physical debility; J44.9 Chronic obstructive pulmonary disease, unspecified; I10 Essential (primary) hypertension; E78.5 Hyperlipidemia, unspecified; Z79.82 Long term (current) use of aspirin; Z79.899 Other long term (current) drug therapy; Z88.8 Allergy status to other drugs, medicaments and biological substances; Z87.891 Personal history of nicotine dependence; Z90.49 Acquired absence of other specified parts of digestive tract; Z96.653 Presence of artificial knee joint, bilateral; Z96.642 Presence of left artificial hip joint
CPT/HCPCS: 36415; 70450; 80053; 81003; 82140; 85025; 85610; 85730; 93005; 99285